=== PATIENT | female | born 1980 | race American Indian/Alaskan Native ===

== ENCOUNTER 2016-06-14 13:58 | Emergency (ER) | payer MEDICAID ==
[2016-06-14 14:37] VITALS: BP 146/85
--- NOTE | 2016-06-14 15:01 | EDM.PDOC ---
[id number] PAIN WHERE TOOTH WAS REMOVED Time Seen by Provider: 06/14/16 14:45 Source: Reports: Patient History Limitations: Reports: No limitations - History of Present Illness INITIAL COMMENTS - FREE TEXT/NARRATIVE: 35-year-old female with a dental extraction 3 days ago is having increased pain today. She is worried about dry socket or infection. Quality: Reports: Ache, Stabbing Associated symptoms: Reports: denies other symptoms - Related Data Allergies/ADRs: Allergies Allergy/AdvReac Type Severity Reaction Status Date / Time amoxicillin Allergy Rash Verified 06/14/16 14:40 erythromycin base Allergy Rash Verified 06/14/16 14:40 Penicillins Allergy Rash Verified 06/14/16 14:40 Sulfa (Sulfonamide Allergy Rash Verified 06/14/16 14:40 Antibiotics) Home Meds: Home Meds Gabapentin [Neurontin] 800 mg PO QID 02/28/15 [History] Ibuprofen [Motrin] 800 mg PO TID 02/28/15 [History] Cyclobenzaprine HCl [Cyclobenzaprine HCl] 10 mg PO BEDTIME 01/12/16 [History] Past Medical History HEENT History: Reports: Allergic rhinitis, Other (see below) Other HEENT History: cracked ear drum Genitourinary History: Reports: Pyelonephritis 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 - Past Surgical History Musculoskeletal Surgical History: Reports: Other (see below) Other Musculoskeletal Surgeries/Procedures:: left ankle surgery Social & Family History - Tobacco Use Smoking Status *Q: Current Every Day Smoker Years of Tobacco use: 15 Packs/Tins Daily: 0.5 Used Tobacco, but Quit: No Second Hand Smoke Exposure: No - Caffeine Use Caffeine Use: Reports: Soda - Recreational Drug Use Recreational Drug Use: No Drug Use in Last 12 Months: Yes Recreational Drug Type: Reports: Marijuana/Hashish Recreational Drug Use Frequency: Rarely Recreational Drug Last Use: 2 weeks ago ED ROS ENT - Review of Systems Review Of Systems: See Below Constitutional: Denies: fever, chills Respiratory: Denies: Shortness of Breath Cardiovascular: Denies: Chest pain GI/Abdominal: Denies: Abdominal pain Skin: Reports: no symptoms Neurological: Denies: Headache ED EXAM, ENT - Physical Exam Exam: See Below Exam Limited By: No limitations General Appearance: alert, no apparent distress Mouth/Throat: Other (Dental extraction site to the first molar on the right mandible looks clean, healing nicely with a small amount of swelling. No evidence of infection.) Course - Vital Signs Last Recorded V/S: Last Vital Signs Temp 99.1 F 06/14/16 14:35 Pulse 121 H 06/14/16 14:35 Resp 14 06/14/16 14:35 BP 146/85 H 06/14/16 14:35 Pulse Ox 99 06/14/16 14:35 - Re-Assessments/Exams Free Text/Narrative Re-Assessment/Exam: 06/14/16 15:00 Patient was given 10 hydrocodone for pain control to use sparingly over the next 2-3 days and to recheck with her dentist or primary care provider in the next one to 2 days. Return if worsening such as swelling or fever. Departure - Departure Time of Disposition: 15:18 Disposition: Home, Self-Care 01 Condition: good Clinical Impression: Pain, dental Instructions: Dental Extraction, Care After, [id number] Referrals: PCP,None [Primary Care Provider] - Forms: ED Department Discharge Care Plan Goals: Ibuprofen on a regular basis and add stronger pain medications if needed. Return if worsening such as fever or increased swelling, recheck in 2-3 days if not improving satisfactorily.
== END 2016-06-14 15:18 | disposition home or self-care (01) ==
LOC: JP.ED 13:58
DX: K08.89 Other specified disorders of teeth and supporting structures (principal); F41.9 Anxiety disorder, unspecified; F32.9 Major depressive disorder, single episode, unspecified; F17.210 Nicotine dependence, cigarettes, uncomplicated; Z88.0 Allergy status to penicillin; Z88.1 Allergy status to other antibiotic agents; Z88.2 Allergy status to sulfonamides; Z98.890 Other specified postprocedural states
CPT/HCPCS: 99283

== ENCOUNTER 2016-07-21 21:04 | Emergency (ER) | payer MEDICAID ==
[2016-07-21 21:30] VITALS: BP 147/94
[2016-07-21] MEDS ORDERED: Lidocaine 1% with EPINEPHrine 1:100,000 50 ML MDV INJECT STA (21:58)
--- NOTE | 2016-07-21 22:43 | EDM.PDOC ---
[id number] BOIL; SHARP PAIN RT SIDE Time Seen by Provider: 07/21/16 21:55 Source: Reports: Patient, RN notes reviewed History Limitations: Reports: No limitations - History of Present Illness INITIAL COMMENTS - FREE TEXT/NARRATIVE: Brought herself here Chief complaint boil in genital area HPI 35-year-old female who's had a history of MRSA, has developed boils previously, no history of diabetes. Current boil started yesterday, feels as if there is one larger one smaller boil in the pubic area. No fever or chills Some discomfort with urination. No other rashes or breakouts at this time - Related Data Allergies Allergy/AdvReac Type Severity Reaction Status Date / Time amoxicillin Allergy Rash Verified 07/21/16 21:38 erythromycin base Allergy Rash Verified 07/21/16 21:38 Penicillins Allergy Rash Verified 07/21/16 21:38 Sulfa (Sulfonamide Allergy Rash Verified 07/21/16 21:38 Antibiotics) Home Meds: Ambulatory Orders Medication Instructions Recorded Confirmed Gabapentin [Neurontin] 800 mg PO QID 02/28/15 07/21/16 Ibuprofen [Motrin] 800 mg PO TID 02/28/15 07/21/16 Cyclobenzaprine HCl 10 mg PO BEDTIME 01/12/16 07/21/16 [Cyclobenzaprine HCl] Doxycycline [Vibra-Tabs] 100 mg PO Q12HR #20 tab 07/21/16 Hydrocodone/Acetaminophen 1 - 2 each PO Q4H PRN #10 tablet 07/21/16 [Hydrocodon-Acetaminophen 5-325] Past Medical History HEENT History: Reports: Allergic rhinitis, Other (see below) Other HEENT History: cracked ear drum Genitourinary History: Reports: Pyelonephritis 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 - Past Surgical History Musculoskeletal Surgical History: Reports: Other (see below) Other Musculoskeletal Surgeries/Procedures:: left ankle surgery Social & Family History - Tobacco Use Smoking Status *Q: Current Every Day Smoker Years of Tobacco use: 22 Packs/Tins Daily: 0.2 Used Tobacco, but Quit: No Second Hand Smoke Exposure: No - Caffeine Use Caffeine Use: Reports: Soda - Recreational Drug Use Recreational Drug Use: No Drug Use in Last 12 Months: Yes Recreational Drug Type: Reports: Marijuana/Hashish Recreational Drug Use Frequency: Rarely Recreational Drug Last Use: 2 weeks ago ED ROS GENERAL - Review of Systems Review Of Systems: ROS reveals no pertinent complaints other than HPI. : Reports: other (One or 2 small boils in the perineal area, some discomfort with urination) ED EXAM, SKIN/RASH Exam: See Below Exam Limited By: No limitations General Appearance: alert, mild distress, other (Mild tachycardia and elevation of blood pressure, Appears well, no difficulty speaking or breathing) Respiratory/Chest: no respiratory distress, no accessory muscle use Cardiovascular: normal peripheral pulses, regular rate, rhythm Neurological: alert, oriented, normal cognition Skin: Other (At least one small boil in the anterior pubic area, mild erythema and significant tenderness is present) Location, Skin: genital ED SKIN PROCEDURES - I&D Skin prep: isopropyl alcohol (alcohol) Local anesthesia: Lidocaine: 1% with epi Local anesthetic volume: 2cc Area incised with: 11 blade Drainage: bloody, small amount Probed to break up loculations: No Packed with: none Sterile dressinx4(s) Complications: No Course - Vital Signs Last Recorded V/S: Last Vital Signs Temp 37.0 C 07/21/16 21:36 Pulse 118 H 07/21/16 21:36 Resp 16 07/21/16 21:36 BP 147/94 H 07/21/16 21:36 Pulse Ox 98 07/21/16 21:36 - Orders/Labs/Meds Meds: Medications Discontinued Medications Generic Name Dose Route Start Last Admin Trade Name Tuq PRN Reason Stop Dose Admin Lidocaine/Epinephrine 10 ml 07/21/16 21:58 Xylocaine 1% With Epinephrine 1:100,000 INJECT 07/21/16 21:59 ONETIME STA - Re-Assessments/Exams Free Text/Narrative Re-Assessment/Exam: 07/21/16 23:43 35-year-old female with perineal boil Incision and drainage Prescriptions as below Departure - Departure Time of Disposition: 22:39 Disposition: Home, Self-Care 01 Condition: good Clinical Impression: Boil of trunk Prescriptions: Doxycycline [Vibra-Tabs] 100 mg PO Q12HR #20 tab Hydrocodone/Acetaminophen [Hydrocodon-Acetaminophen 5-325] 1 - 2 each PO Q4H PRN #10 tablet PRN Reason: Moderate to severe pain Instructions: Incision and Drainage, Care After Referrals: PCP,None [Primary Care Provider] - Forms: ED Department Discharge
== END 2016-07-21 22:50 | disposition home or self-care (01) ==
LOC: JP.ED 21:04
DX: L02.229 Furuncle of trunk, unspecified (principal); F41.0 Panic disorder [episodic paroxysmal anxiety]; F32.9 Major depressive disorder, single episode, unspecified; F17.210 Nicotine dependence, cigarettes, uncomplicated; Z88.0 Allergy status to penicillin; Z88.1 Allergy status to other antibiotic agents; Z88.2 Allergy status to sulfonamides; Z79.899 Other long term (current) drug therapy; Z98.890 Other specified postprocedural states
CPT/HCPCS: 10060; 99283-25

== ENCOUNTER 2016-09-12 21:07 | Emergency (ER) | payer MEDICAID ==
[2016-09-12 21:40] VITALS: BP 128/77
[2016-09-12] MEDS ORDERED: oxyCODONE 5 MG Tab PO ONE (21:52)
--- NOTE | 2016-09-12 21:56 | EDM.PDOC ---
ED HPI GENERAL MEDICAL PROBLEM - General Chief Complaint: Gastrointestinal Problem Stated Complaint: POSSIBLE KIDNEY STONES Time Seen by Provider: 09/12/16 21:45 Source of Information: Reports: Patient History Limitations: Reports: No Limitations - History of Present Illness INITIAL COMMENTS - FREE TEXT/NARRATIVE: Jerrod is a 36 year old female who presents to the ED today with c/o LUQ pain that wraps into her back since this morning. Patient denies any other associative symptoms. Patient was just seen in [place] ED on 09/09 where she was worked up for visual issues and RUQ pain, she was found to have a right intra-renal stone at that time. Patient denies any fever/chills/nausea/vomiting /diarrhea. - Related Data Allergies Allergy/AdvReac Type Severity Reaction Status Date / Time amoxicillin Allergy Rash Verified 07/21/16 21:38 erythromycin base Allergy Rash Verified 07/21/16 21:38 Penicillins Allergy Rash Verified 07/21/16 21:38 Sulfa (Sulfonamide Allergy Rash Verified 07/21/16 21:38 Antibiotics) Home Meds: Home Meds Gabapentin [Neurontin] 800 mg PO QID 02/28/15 [History] Ibuprofen [Motrin] 800 mg PO TID 02/28/15 [History] Cyclobenzaprine HCl [Cyclobenzaprine HCl] 10 mg PO BEDTIME 01/12/16 [History] Insulin Aspart [NovoLOG] 09/12/16 [History] Insulin Detemir [Levemir Flextouch] 09/12/16 [History] Past Medical History HEENT History: Reports: Allergic Rhinitis, Other (See Below) Other HEENT History: cracked ear drum Genitourinary History: Reports: Pyelonephritis Other Genitourinary History: recent renal calculus dx 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 - Past Surgical History Musculoskeletal Surgical History: Reports: Other (See Below) Social & Family History - Tobacco Use Smoking Status *Q: Current Every Day Smoker Years of Tobacco use: 20 Packs/Tins Daily: 0.2 Used Tobacco, but Quit: No Second Hand Smoke Exposure: No - Caffeine Use Caffeine Use: Reports: Soda - Recreational Drug Use Recreational Drug Use: No Drug Use in Last 12 Months: Yes Recreational Drug Type: Reports: Marijuana/Hashish Recreational Drug Use Frequency: Rarely Recreational Drug Last Use: 2 weeks ago ED ROS GENERAL - Review of Systems Review Of Systems: ROS reveals no pertinent complaints other than HPI. ED EXAM, GI/ABD - Physical Exam Exam: See Below Exam Limited By: No Limitations General Appearance: Alert, WD/WN, No Apparent Distress Ears: Normal External Exam Throat/Mouth: Normal Inspection, Normal Oropharynx Head: Atraumatic Respiratory/Chest: No Respiratory Distress, Lungs Clear, Normal Breath Sounds Cardiovascular: Normal Peripheral Pulses, Regular Rate, Rhythm, No Murmur GI/Abdominal: Normal Bowel Sounds, Soft, Other (Mild tenderness to LUQ and Left CVA. No masses, no organomegaly) Rectal (Female) Exam: Deferred Back Exam: Normal Inspection Extremities: Normal Inspection, Normal Range of Motion Neurological: Oriented, CN II-XII Intact Psychiatric: Normal Affect, Normal Mood Skin Exam: Warm, Dry, Intact Course - Vital Signs Text/Narrative:: Jerrod is a 36 year old female with multiple medical problems including fatty liver, right sided renal stones, fibromyalgia, cholelithiasis, chronic pain syndrome and obesity who presents to the ED today with c/o LUQ pain since this morning. She reports she is concerned she is passing a kidney stone as she was told she had them at her last ED visit (09/09 in [place]). However, these were in patient's right kidney. Patient on exam is well hydrated , she is non-toxic appearing. She has mild LUQ and left sided CVA tenderness on exam, remaining exam is unremarkable. CBC obtained tonight and returns with a normal white count. CMP returns with anion gap of 18.5 which is unchanged since 09/09. Mildly elevated AST of 96 and ALT of 118. Potassium is mildly low at 3.2, patient given 40 meq replacement here. UA is positive for infection, negative for blood. UC pending. Patient reports she was diagnosed with UTI 3 days ago and put on 2 days of Clindamycin. Patient is not on any antibiotics currently. I am going to start her on Cipro for 5 days. I do not feel based on exam and reassuring blood work that imaging tonight is warranted especially given patient complete abdominal US that was done on the . Patient is stable to be discharged home. She has Tylenol with codeine at home she can take as prescribed. Follow up with PCP this next week. Reasons to return to the ED discussed. Patient is agreeable to plan of care and questions were answered prior to discharge. Patient discharged from the ED in stable condition with her friend driving. Last Recorded V/S: Last Vital Signs Temp 37.5 C 09/12/16 21:38 Pulse 89 09/12/16 21:38 Resp 14 09/12/16 21:38 BP 128/77 09/12/16 21:38 Pulse Ox 98 09/12/16 21:38 - Orders/Labs/Meds Labs: Laboratory Tests 09/12/16 09/12/16 09/12/16 Range/Units 22:02 22:02 22:32 WBC 7.4 (4.5-11.0) K/uL RBC 5.15 (3.30-5.50) M/uL Hgb 14.6 (12.0-15.0) g/dL Hct 43.0 (36.0-48.0) % MCV 84 (80-98) fL MCH 28 (27-31) pg MCHC 34 (32-36) % Plt Count 303 (150-400) K/uL Neut % (Auto) 50 (36-66) % Lymph % (Auto) 34 (24-44) % [place] % (Auto) 12 H (2-6) % Eos % (Auto) 4 (2-4) % Baso % (Auto) 1 (0-1) % Sodium 141 (140-148) mmol/L Potassium 3.2 L (3.6-5.2) mmol/L Chloride 105 (100-108) mmol/L Carbon Dioxide 21 (21-32) mmol/L Anion Gap 18.2 H (5.0-14.0) mmol/L BUN 13 (7-18) mg/dL Creatinine 0.8 (0.6-1.0) mg/dL Est Cr Clr Drug Dosing 95.45 mL/min Estimated GFR (MDRD) > 60 (>60) Glucose 95 (74-106) mg/dL Calcium 9.0 (8.5-10.1) mg/dL Total Bilirubin 0.6 D (0.2-1.0) mg/dL AST 96 H D (15-37) U/L ALT 118 H (12-78) U/L Alkaline Phosphatase 99 (46-116) U/L Total Protein 7.7 (6.4-8.2) g/dL Albumin 3.7 (3.4-5.0) g/dL Globulin 4.0 H (2.3-3.5) g/dL Albumin/Globulin Ratio 0.9 L (1.2-2.2) Urine Color Yellow Urine Appearance Clear Urine pH 5.0 (4.5-8.0) Ur Specific [place] 1.020 (1.008-1.030) Urine Protein Trace (NEGATIVE) mg/dL Urine Glucose (UA) Normal (NEGATIVE) mg/dL Urine Ketones 15 H (NEGATIVE) mg/dL Urine Occult Blood Negative (NEGATIVE) Urine Nitrite Positive H (NEGATIVE) Urine Bilirubin Small (NEGATIVE) Urine Urobilinogen Normal (NORMAL) mg/dL Ur Leukocyte Esterase Large (NEGATIVE) Urine RBC 0-5 (0-5) Urine WBC 20-30 H (0-5) Ur Epithelial Cells Moderate Amorphous Sediment Not seen Urine Bacteria Moderate Urine Mucus Moderate Meds: Medications Discontinued Medications Generic Name Dose Route Start Last Admin Trade Name Bailey PRN Reason Stop Dose Admin Oxycodone HCl 10 mg 09/12/16 21:52 09/12/16 22:12 Oxycodone PO 09/12/16 21:53 10 mg ONETIME ONE Administration Potassium Chloride 40 meq 09/12/16 22:39 09/12/16 22:43 Klor-Con M20 PO 09/12/16 22:40 40 meq ONETIME ONE Administration Departure - Departure Time of Disposition: 23:00 Disposition: Home, Self-Care 01 Condition: Good Clinical Impression: LUQ abdominal pain - Discharge Information Instructions: Abdominal Pain, Adult, [id number] Referrals: Trell Buitrago MD [Primary Care Provider] - Forms: ED Department Discharge Additional Instructions: Jerrod, Please make sure to stay well hydrated, take your Tylenol #3 as prescribed if needed. Please follow up with your primary care provider next week.
[2016-09-12] MEDS ORDERED: Potassium Chloride 20 MEQ Tab.ER PO ONE (22:39)
== END 2016-09-12 23:11 | disposition home or self-care (01) ==
LOC: JP.ED 21:07
DX: R10.12 Left upper quadrant pain (principal); M19.90 Unspecified osteoarthritis, unspecified site; F17.210 Nicotine dependence, cigarettes, uncomplicated; Z88.1 Allergy status to other antibiotic agents; Z88.0 Allergy status to penicillin; Z88.2 Allergy status to sulfonamides; Z79.4 Long term (current) use of insulin
CPT/HCPCS: 36415; 80053; 81001; 85025; 87086; 99284; A9270; 99283

== ENCOUNTER 2016-11-05 22:06 | Emergency (ER) | payer MEDICAID ==
[2016-11-05 22:57] VITALS: BP 140/86
[2016-11-06] MEDS ORDERED: Ciprofloxacin 500 MG Tab PO ONE (00:03)
--- NOTE | 2016-11-06 00:09 | EDM.PDOC ---
[id number]: ABD PAIN Time Seen by Provider: 11/05/16 23:40 Source of Information: Reports: Patient History Limitations: Reports: No Limitations - History of Present Illness INITIAL COMMENTS - FREE TEXT/NARRATIVE: 36-year-old female who apparently is scheduled to get a cholecystectomy in the near future arrives with generalized abdominal discomfort. When I went in to examine her and visit with her she was resting comfortably and appeared to be sleeping. Her pain is very nonspecific, diffuse but without nausea or vomiting. She looked comfortable. She was afebrile. She apparently has a urinary tract infection that she said was started on Macrobid, and was changed to a " different antibiotic" today because it wasn't covering the infection but she has not started that yet. Onset: Unknown/Unsure Location: Reports: Abdomen Severity: Mild Associated Symptoms: Denies: Chest Pain, Cough, Fever/Chills, Nausea/Vomiting, Shortness of Breath, Weakness Abdominal Pain Score (Numeric/FACES): 7 - Related Data Allergies Allergy/AdvReac Type Severity Reaction Status Date / Time amoxicillin Allergy Rash Verified 11/05/16 23:23 erythromycin base Allergy Rash Verified 11/05/16 23:23 Penicillins Allergy Rash Verified 11/05/16 23:23 Sulfa (Sulfonamide Allergy Rash Verified 11/05/16 23:23 Antibiotics) Home Meds: Home Meds Gabapentin [Neurontin] 800 mg PO QID 02/28/15 [History] Cyclobenzaprine HCl [Cyclobenzaprine HCl] 10 mg PO BEDTIME 01/12/16 [History] Insulin Aspart [NovoLOG] 09/12/16 [History] Insulin Detemir [Levemir Flextouch] 20 unit SQ BEDTIME 09/12/16 [History] Past Medical History HEENT History: Reports: Allergic Rhinitis, Other (See Below) Other HEENT History: cracked ear drum Gastrointestinal History: Reports: Cholelithiasis Genitourinary History: Reports: Pyelonephritis, Renal Calculus, UTI, Recurrent Other Genitourinary History: recent renal calculus dx 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 - Past Surgical History Musculoskeletal Surgical History: Reports: Other (See Below) Social & Family History - Tobacco Use Smoking Status *Q: Current Every Day Smoker Years of Tobacco use: 20 Packs/Tins Daily: 0.2 Used Tobacco, but Quit: No Second Hand Smoke Exposure: No - Caffeine Use Caffeine Use: Reports: Soda - Recreational Drug Use Recreational Drug Use: No Drug Use in Last 12 Months: Yes Recreational Drug Type: Reports: Marijuana/Hashish Recreational Drug Use Frequency: Rarely Recreational Drug Last Use: 2 weeks ago ED ROS GENERAL - Review of Systems Review Of Systems: See Below Constitutional: Denies: Fever, Chills HEENT: Reports: No Symptoms Respiratory: Denies: Shortness of Breath Cardiovascular: Denies: Chest Pain GI/Abdominal: Reports: Abdominal Pain. Denies: Nausea : Reports: Frequency (At times) Musculoskeletal: Reports: Back Pain Skin: Reports: No Symptoms ED EXAM, GI/ABD - Physical Exam Exam: See Below Exam Limited By: No Limitations General Appearance: Alert, No Apparent Distress Eyes: Bilateral: Normal Appearance (No jaundice) Respiratory/Chest: No Respiratory Distress, Lungs Clear Cardiovascular: Regular Rate, Rhythm GI/Abdominal Exam: Normal Bowel Sounds, Soft, Tender (Did reacts with some tenderness diffusely but no focal tenderness) Neurological: Alert, Oriented Psychiatric: Normal Affect, Normal Mood Skin Exam: Warm, Dry Course - Vital Signs Last Recorded V/S: Last Vital Signs Temp 99.1 F 11/05/16 23:17 Pulse 118 H 11/05/16 23:17 Resp 16 11/05/16 23:17 BP 140/86 11/05/16 23:17 Pulse Ox 98 11/05/16 23:17 - Orders/Labs/Meds Meds: Medications Discontinued Medications Generic Name Dose Route Start Last Admin Trade Name Bailey PRN Reason Stop Dose Admin Ciprofloxacin 500 mg 11/06/16 00:03 11/06/16 00:08 Ciprofloxacin Hcl PO 11/06/16 00:04 500 mg ONETIME ONE Administration - Re-Assessments/Exams Free Text/Narrative Re-Assessment/Exam: 11/06/16 00:07 Reviewed her records and she was supposed to start Cipro today which she has not. We gave her her first oral dose tonight. She's also on a pain contract and received 20 day supply of hydrocodone 18 days ago, and has been calling the clinic looking for a refill. She did not mention that medication to us as a regular medicine. She does not look ill, does not look to be uncomfortable and no further workup or treatment is necessary tonight. Departure - Departure Time of Disposition: 00:15 Disposition: Home, Self-Care 01 Condition: Good Clinical Impression: Abdominal pain Qualifiers: Abdominal location: generalized Qualified Code(s): R10.84 - Generalized abdominal pain UTI (urinary tract infection) Qualifiers: Urinary tract infection type: acute cystitis Hematuria presence: without hematuria Qualified Code(s): N30.00 - Acute cystitis without hematuria - Discharge Information Instructions: Abdominal Pain, Adult, [id number] Referrals: Trell Buitrago MD [Primary Care Provider] - Forms: ED Department Discharge Care Plan Goals: Take your antibiotic as prescribed. Return if worsening such as fever or increased pain. Increase diet as tolerated.
== END 2016-11-06 00:15 | disposition home or self-care (01) ==
LOC: JP.ED 22:06
DX: N30.00 Acute cystitis without hematuria (principal); M19.90 Unspecified osteoarthritis, unspecified site; G43.909 Migraine, unspecified, not intractable, without status migrainosus; F17.210 Nicotine dependence, cigarettes, uncomplicated; Z90.49 Acquired absence of other specified parts of digestive tract; Z79.4 Long term (current) use of insulin; Z88.1 Allergy status to other antibiotic agents; Z88.0 Allergy status to penicillin; Z88.2 Allergy status to sulfonamides
CPT/HCPCS: 99283; A9270

== ENCOUNTER 2017-01-18 22:32 | Emergency (ER) | payer MEDICAID ==
[2017-01-18] MEDS ORDERED: Sodium Chloride 0.9% 1,000 ML IV SCH (23:45)
--- NOTE | 2017-01-19 00:01 | EDM.PDOC ---
ED HPI GENERAL MEDICAL PROBLEM - General Chief Complaint: Gastrointestinal Problem Stated Complaint: RECTAL BLEEDING/ABD BLOATING Time Seen by Provider: 01/18/17 23:55 Source of Information: Reports: Patient History Limitations: Reports: No Limitations - History of Present Illness INITIAL COMMENTS - FREE TEXT/NARRATIVE: pt arrived after 3 days of diarrhea and today when she wiped she had bright red blood on the tolet paper. Onset: Gradual, Other ( last 3 days. ) Duration: Day(s):, Other (pt had bright red blood tonight. ) Location: Reports: Abdomen, Other ( Pt has crampy pain she is rating at a 5. ) abdominal Pain Score (Numeric/FACES): 6 - Related Data Allergies Allergy/AdvReac Type Severity Reaction Status Date / Time amoxicillin Allergy Rash Verified 01/19/17 00:06 erythromycin base Allergy Rash Verified 01/19/17 00:06 Penicillins Allergy Rash Verified 01/19/17 00:06 Sulfa (Sulfonamide Allergy Rash Verified 01/19/17 00:06 Antibiotics) Home Meds: Home Meds Gabapentin [Neurontin] 800 mg PO QID 02/28/15 [History] Insulin Aspart [NovoLOG] 15 - 20 units SUBCUT TID 09/12/16 [History] Insulin Detemir [Levemir Flextouch] 20 unit SQ BEDTIME 09/12/16 [History] Past Medical History HEENT History: Reports: Allergic Rhinitis, Other (See Below) Other HEENT History: cracked ear drum Gastrointestinal History: Reports: Cholelithiasis Genitourinary History: Reports: Pyelonephritis, Renal Calculus, UTI, Recurrent Other Genitourinary History: recent renal calculus dx 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 - Past Surgical History GI Surgical History: Reports: Cholecystectomy Musculoskeletal Surgical History: Reports: Other (See Below) Other Musculoskeletal Surgeries/Procedures:: right ankle surgery Dermatological Surgical History: Reports: Other (See Below) Social & Family History - Tobacco Use Smoking Status *Q: Current Every Day Smoker Years of Tobacco use: 16 Packs/Tins Daily: 0.2 Used Tobacco, but Quit: No Second Hand Smoke Exposure: No - Caffeine Use Caffeine Use: Reports: Coffee, Soda - Recreational Drug Use Recreational Drug Use: No Drug Use in Last 12 Months: Yes Recreational Drug Type: Reports: Marijuana/Hashish Recreational Drug Use Frequency: Rarely Recreational Drug Last Use: 2 weeks ago ED ROS GENERAL - Review of Systems Review Of Systems: See Below Constitutional: Reports: No Symptoms HEENT: Reports: No Symptoms Respiratory: Reports: No Symptoms Cardiovascular: Reports: No Symptoms Endocrine: Reports: High Glucose, Other (pt is a new diabetic. ) GI/Abdominal: Reports: Abdominal Pain, Diarrhea, Other ( Pt has had loose stools for the past 3 days. ) : Reports: Other ( High urine glucose. ) Musculoskeletal: Reports: No Symptoms Skin: Reports: No Symptoms Neurological: Reports: No Symptoms Psychiatric: Reports: No Symptoms Hematologic/Lymphatic: Reports: No Symptoms ED EXAM, GI/ABD - Physical Exam Exam: See Below Text/Narrative:: pt arrived with pain in the lower abdoman. She is hving loose stools after eating or drinking. She is not vomiting. She did have some bright red blood on the tolet paper when she wiped. This was not mixed with the stool. Exam Limited By: No Limitations General Appearance: Alert, Anxious, Mild Distress Ears: Normal TMs Nose: Normal Inspection Throat/Mouth: Normal Inspection Head: Atraumatic Neck: Normal Inspection Respiratory/Chest: No Respiratory Distress Cardiovascular: Regular Rate, Rhythm, Tachycardia GI/Abdominal Exam: Soft, Non-Tender, Distended, Tender, Other (pt appears to have difuse tenderness. ) (Female) Exam: Deferred Rectal (Female) Exam: Other ( There is no blood present at this time. Stool is chou in color) Back Exam: Normal Inspection Extremities: Normal Inspection Neurological: Alert, Oriented, Normal Cognition Psychiatric: Normal Affect Course - Vital Signs Last Recorded V/S: Last Vital Signs Temp 36.3 C 01/19/17 01:45 Pulse 83 01/19/17 01:45 Resp 18 01/19/17 01:45 BP 120/73 01/19/17 01:45 Pulse Ox 99 01/19/17 01:45 - Orders/Labs/Meds Orders: Active Orders 24 hr Category Date Time Status Abdomen Pelvis w Cont [CT] Stat Exams 01/19/17 01:27 Taken Abdomen Series w Chest 1V [CR] Stat Exams 01/19/17 00:01 Taken CLOSTRIDIUM DIFFICILE BY PCR [] Stat Lab 01/18/17 23:57 Uncollected CULTURE URINE [] Stat Lab 01/19/17 00:05 Received Sodium Chloride 0.9% [Normal Saline] 1,000 ml Med 01/18/17 23:45 Active IV ASDIRECTED Sodium Chloride 0.9% [Normal Saline] 1,000 ml Med 01/19/17 01:45 Active IV ASDIRECTED Medication Orders Sodium Chloride (Normal Saline) 1,000 mls @ 999 mls/hr IV ASDIRECTED SHAHBAZ Last Admin: 01/19/17 00:35 Dose: 999 mls/hr Sodium Chloride (Normal Saline) 1,000 mls @ 999 mls/hr IV ASDIRECTED SHAHBAZ Last Admin: 01/19/17 01:44 Dose: 999 mls/hr Labs: Laboratory Tests 01/18/17 01/18/17 01/18/17 Range/Units 23:37 23:37 23:54 WBC 8.8 (4.5-11.0) K/uL RBC 5.24 (3.30-5.50) M/uL Hgb 14.5 (12.0-15.0) g/dL Hct 44.0 (36.0-48.0) % MCV 84 (80-98) fL MCH 28 (27-31) pg MCHC 33 (32-36) % Plt Count 326 (150-400) K/uL Neut % (Auto) 53 (36-66) % Lymph % (Auto) 34 (24-44) % [place] % (Auto) 9 H (2-6) % Eos % (Auto) 4 (2-4) % Baso % (Auto) 1 (0-1) % Sodium 133 L (140-148) mmol/L Potassium 4.1 (3.6-5.2) mmol/L Chloride 96 L (100-108) mmol/L Carbon Dioxide 26 (21-32) mmol/L Anion Gap 15.1 H (5.0-14.0) mmol/L BUN 11 (7-18) mg/dL Creatinine 0.8 (0.6-1.0) mg/dL Est Cr Clr Drug Dosing 95.45 mL/min Estimated GFR (MDRD) > 60 (>60) Glucose 464 H* (74-106) mg/dL Calcium 9.4 (8.5-10.1) mg/dL Total Bilirubin 0.3 (0.2-1.0) mg/dL AST 50 H (15-37) U/L ALT 81 H (12-78) U/L Alkaline Phosphatase 131 H (46-116) U/L C-Reactive Protein 0.74 H (0.0-0.3) mg/dL Total Protein 7.7 (6.4-8.2) g/dL Albumin 3.4 (3.4-5.0) g/dL Globulin 4.3 H (2.3-3.5) g/dL Albumin/Globulin Ratio 0.8 L (1.2-2.2) Lipase (73-393) U/L Urine Color Urine Appearance Urine pH (4.5-8.0) Ur Specific [place] (1.008-1.030) Urine Protein (NEGATIVE) mg/dL Urine Glucose (UA) (NEGATIVE) mg/dL Urine Ketones (NEGATIVE) mg/dL Urine Occult Blood (NEGATIVE) Urine Nitrite (NEGATIVE) Urine Bilirubin (NEGATIVE) Urine Urobilinogen (NORMAL) mg/dL Ur Leukocyte Esterase (NEGATIVE) Urine RBC (0-5) Urine WBC (0-5) Ur Epithelial Cells Amorphous Sediment Urine Bacteria Urine Mucus Urine HCG, Qual 01/18/17 01/18/17 01/19/17 Range/Units 23:56 23:58 00:00 WBC (4.5-11.0) K/uL RBC (3.30-5.50) M/uL Hgb (12.0-15.0) g/dL Hct (36.0-48.0) % MCV (80-98) fL MCH (27-31) pg MCHC (32-36) % Plt Count (150-400) K/uL Neut % (Auto) (36-66) % Lymph % (Auto) (24-44) % [place] % (Auto) (2-6) % Eos % (Auto) (2-4) % Baso % (Auto) (0-1) % Sodium (140-148) mmol/L Potassium (3.6-5.2) mmol/L Chloride (100-108) mmol/L Carbon Dioxide (21-32) mmol/L Anion Gap (5.0-14.0) mmol/L BUN (7-18) mg/dL Creatinine (0.6-1.0) mg/dL Est Cr Clr Drug Dosing mL/min Estimated GFR (MDRD) (>60) Glucose (74-106) mg/dL Calcium (8.5-10.1) mg/dL Total Bilirubin (0.2-1.0) mg/dL AST (15-37) U/L ALT (12-78) U/L Alkaline Phosphatase (46-116) U/L C-Reactive Protein (0.0-0.3) mg/dL Total Protein (6.4-8.2) g/dL Albumin (3.4-5.0) g/dL Globulin (2.3-3.5) g/dL Albumin/Globulin Ratio (1.2-2.2) Lipase 284 (73-393) U/L Urine Color Yellow Urine Appearance Slightly cloudy Urine pH 6.5 (4.5-8.0) Ur Specific [place] 1.015 (1.008-1.030) Urine Protein Negative (NEGATIVE) mg/dL Urine Glucose (UA) >1000 H (NEGATIVE) mg/dL Urine Ketones Negative (NEGATIVE) mg/dL Urine Occult Blood Negative (NEGATIVE) Urine Nitrite Negative (NEGATIVE) Urine Bilirubin Negative (NEGATIVE) Urine Urobilinogen Normal (NORMAL) mg/dL Ur Leukocyte Esterase Small (NEGATIVE) Urine RBC 0-5 (0-5) Urine WBC 5-10 H (0-5) Ur Epithelial Cells Few Amorphous Sediment Not seen Urine Bacteria Few Urine Mucus Not seen Urine HCG, Qual Negative Meds: Medications Generic Name Dose Route Start Last Admin Trade Name Freq PRN Reason Stop Dose Admin Sodium Chloride 1,000 mls @ 999 mls/hr 01/18/17 23:45 01/19/17 00:35 Normal Saline IV 999 mls/hr ASDIRECTED SHAHBAZ Administration Sodium Chloride 1,000 mls @ 999 mls/hr 01/19/17 01:45 01/19/17 01:44 Normal Saline IV 999 mls/hr ASDIRECTED SHAHBAZ Administration Discontinued Medications Generic Name Dose Route Start Last Admin Trade Name Freq PRN Reason Stop Dose Admin Hydromorphone HCl 0.5 mg 01/19/17 01:32 01/19/17 01:38 Dilaudid IVPUSH 01/19/17 01:33 0.5 mg ONETIME ONE Administration Sodium Chloride 85 mls @ 4 mls/sec 01/19/17 01:54 01/19/17 02:02 Normal Saline IV 01/19/17 01:55 4 mls/sec ASDIRECTED STA Administration Insulin Detemir 20 unit 01/19/17 00:11 01/19/17 01:02 Levemir SUBCUT 01/19/17 00:12 Not Given ONETIME ONE Insulin Detemir Confirm 01/19/17 00:52 01/19/17 00:59 Levemir Administered 01/19/17 00:53 20 units Dose Administration 300 unit .ROUTE .STK-MED ONE Insulin Human Regular 5 unit 01/19/17 00:22 01/19/17 00:40 Novolin R SUBCUT 01/19/17 00:23 5 units ONETIME ONE Administration Protocol Insulin Human Regular 4 unit 01/19/17 01:48 01/19/17 02:37 Novolin R SUBCUT 01/19/17 01:49 4 units ONETIME ONE Administration Protocol Iopamidol 150 ml 01/19/17 01:54 01/19/17 02:02 Isovue-300 (61%) IV 01/19/17 01:55 150 ml . DIRECTED STA Administration - Radiology Interpretation Free Text/Narrative:: pt does not have a distended bowel on flat and upright. Her lab work shows a normal cbc.Her liver enzymes are mildly elevated. Her bs is 464. She was given 5 units of regular insulin nd her levimir at 20 units. She had urine with a few wbcs and bateria. - Re-Assessments/Exams Free Text/Narrative Re-Assessment/Exam: 01/19/17 02:48 pt is not following her diabetes with checking bs. She has only taken one dose of insulin today. Her bs is 464. She has not had any stools while she is here. Her flat and upright of the abdoman does not show a distended bowel. Her cat scan of the abdoman was neg for acute findings. She was given 2 liters of fluid and insulin levimir and regular insulin. 01/19/17 03:05 The bright red bleeding was most lilely irritation. Departure - Departure Time of Disposition: 03:06 Disposition: Home, Self-Care 01 Condition: Fair Clinical Impression: Hyperglycemia, Dehydration, Post-cholecystectomy syndrome - Discharge Information Referrals: Trell Buitrago MD [Primary Care Provider] - Forms: ED Department Discharge Care Plan Goals: eat regularly and start checking bs closely. immodium 2 tabs after each loose stool. Use the insulin as directed. bring back a stool for clostrium diff-- send home a sterile cup. follow up with surgeon who did the surgery. - My Orders Last 24 Hours: My Active Orders 01/18/17 23:45 Sodium Chloride 0.9% [Normal Saline] 1,000 ml IV ASDIRECTED 01/18/17 23:57 CLOSTRIDIUM DIFFICILE BY PCR [RM] Stat 01/19/17 00:01 Abdomen Series w Chest 1V [CR] Stat 01/19/17 00:05 CULTURE URINE [RM] Stat 01/19/17 01:27 Abdomen Pelvis w Cont [CT] Stat 01/19/17 01:45 Sodium Chloride 0.9% [Normal Saline] 1,000 ml IV ASDIRECTED - Assessment/Plan Last 24 Hours: My Active Orders 01/18/17 23:45 Sodium Chloride 0.9% [Normal Saline] 1,000 ml IV ASDIRECTED 01/18/17 23:57 CLOSTRIDIUM DIFFICILE BY PCR [RM] Stat 01/19/17 00:01 Abdomen Series w Chest 1V [CR] Stat 01/19/17 00:05 CULTURE URINE [RM] Stat 01/19/17 01:27 Abdomen Pelvis w Cont [CT] Stat 01/19/17 01:45 Sodium Chloride 0.9% [Normal Saline] 1,000 ml IV ASDIRECTED
[2017-01-19] MEDS ORDERED: Insulin Regular, Human 100 Units/ML 10 ML Vial SUBCUT ONE ×2 (00:22→01:48)
[2017-01-19] MEDS ORDERED: Insulin Detemir 100 Units/ML 3 ML Pen ONE (00:52)
[2017-01-19] MEDS ORDERED: HYDROmorphone 0.5 MG/0.5 ML Syringe IVPUSH ONE (01:32)
[2017-01-19] MEDS ORDERED: Sodium Chloride 0.9% 1,000 ML IV SCH (01:45)
[2017-01-19 01:47] VITALS: BP 120/73
[2017-01-19] MEDS ORDERED: Iopamidol 612 MG/ML 150 ML Bottle IV STA (01:54)
--- NOTE | 2017-01-19 08:23 | CR ---
Abdomen Series w Chest 1V HISTORY: pain in lower abdomen. FINDINGS: Lungs appear clear and normally aerated. Cardiomediastinal silhouette is within normal limits. No vas cular redistribution or pleural fluid can be seen. Bowel gas pattern is nonspecific. No obstruction or free air is identified. Surgical clips are noted right upper quadrant consistent with prior cholecystectomy. No soft tissue mass or organomegaly is se en. Tiny calculi overlying the lower pole right kidney. Bony structures are unremarkable other than s light S-shaped scoliosis of the thoracic and lumbar spine. The upper curve is convex to the right. IMPRESSION: Status post cholecystectomy. Several tiny calculi overlying the lower pole right kidney. Mild scolios is. Otherwise nonspecific abdomen. No acute chest abnormality is identified.
== END 2017-01-19 03:28 | disposition home or self-care (01) ==
LOC: JP.ED 22:32
DX: K91.5 Postcholecystectomy syndrome (principal); E86.0 Dehydration; E11.65 Type 2 diabetes mellitus with hyperglycemia; F17.210 Nicotine dependence, cigarettes, uncomplicated; Z90.49 Acquired absence of other specified parts of digestive tract; Z79.4 Long term (current) use of insulin; Z88.1 Allergy status to other antibiotic agents; Z88.0 Allergy status to penicillin; Z88.2 Allergy status to sulfonamides
CPT/HCPCS: 36415; 74022; 74177; 80053; 81001; 81025; 82962; 83690; 85025; 86140; 87086; 87088; 87186; 96361; 96374; 99284; A9270; J1170; J7030; J7040; 99283

== ENCOUNTER 2017-02-10 22:20 | Emergency (ER) | payer MEDICAID ==
[2017-02-10 22:29] VITALS: BP 138/99
[2017-02-10] MEDS ORDERED: Lidocaine 1% with EPINEPHrine 1:100,000 50 ML MDV SUBCUT STA (22:54)
[2017-02-10] MEDS ORDERED: Bacitracin Oint 1 GM U/D Packet TOP ONE (23:06)
[2017-02-10] MEDS ORDERED: Bacitracin Oint 1 GM U/D Packet ONE (23:07)
--- NOTE | 2017-02-10 23:07 | EDM.PDOC ---
ED HPI GENERAL MEDICAL PROBLEM - General Chief Complaint: General Stated Complaint: BOIL R BREAST Time Seen by Provider: 02/10/17 22:45 Source of Information: Reports: Patient, Old Records History Limitations: Reports: No Limitations - History of Present Illness INITIAL COMMENTS - FREE TEXT/NARRATIVE: 36 yo NA female presents with a lump for a couple days on her R breast that is getting bigger. Has a pHx of recurrent MRSA infections. Has not been to her primary care provider yet for this. Came to town to shop at [employer] and so stopped in tonight to have this looked at. Onset: Gradual Onset Date: 02/08/17 Duration: Day(s): Location: Reports: Chest (R breast) Quality: Reports: Dull Severity: Mild Improves with: Reports: None Worsens with: Reports: Other (? 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: Other (see below) (none) right breast Pain Score (Numeric/FACES): 6 - Related Data Allergies Allergy/AdvReac Type Severity Reaction Status Date / Time amoxicillin Allergy Rash Verified 02/10/17 22:43 erythromycin base Allergy Rash Verified 02/10/17 22:43 Penicillins Allergy Rash Verified 02/10/17 22:43 Sulfa (Sulfonamide Allergy Rash Verified 02/10/17 22:43 Antibiotics) Home Meds: Home Meds Gabapentin [Neurontin] 800 mg PO QID 02/28/15 [History] Insulin Aspart [NovoLOG] 15 - 20 units SUBCUT TID 09/12/16 [History] Insulin Detemir [Levemir Flextouch] 30 unit SQ BEDTIME 09/12/16 [History] Past Medical History HEENT History: Reports: Allergic Rhinitis, Other (See Below) Other HEENT History: cracked ear drum Gastrointestinal History: Reports: Cholelithiasis Genitourinary History: Reports: Pyelonephritis, Renal Calculus, UTI, Recurrent Other Genitourinary History: recent renal calculus dx 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 - Past Surgical History GI Surgical History: Reports: Cholecystectomy Musculoskeletal Surgical History: Reports: Other (See Below) Other Musculoskeletal Surgeries/Procedures:: right ankle surgery Dermatological Surgical History: Reports: Other (See Below) Social & Family History - Tobacco Use Smoking Status *Q: Current Every Day Smoker Years of Tobacco use: 17 Packs/Tins Daily: 0.2 Used Tobacco, but Quit: No Second Hand Smoke Exposure: No - Caffeine Use Caffeine Use: Reports: Coffee, Soda - Recreational Drug Use Recreational Drug Use: No Drug Use in Last 12 Months: Yes Recreational Drug Type: Reports: Marijuana/Hashish Recreational Drug Use Frequency: Rarely Recreational Drug Last Use: 2 weeks ago ED ROS GENERAL - Review of Systems Review Of Systems: See Below Constitutional: Reports: No Symptoms Musculoskeletal: Reports: No Symptoms Skin: Reports: Erythema (nodule lateral to the R nipple. Small abscess. ) Neurological: Reports: No Symptoms ED EXAM, GENERAL - Physical Exam Exam: See Below Exam Limited By: No Limitations General Appearance: Alert, WD/WN, No Apparent Distress Ears: Normal External Exam, Normal Canal, Hearing Grossly Normal Ear Exam: Bilateral Ear: Auricle Normal Nose: Normal Inspection, Normal Mucosa, No Blood Throat/Mouth: Normal Inspection, Normal Lips, Normal Voice Head: Atraumatic, Normocephalic Neck: Normal Inspection Respiratory/Chest: No Respiratory Distress Cardiovascular: Regular Rate, Rhythm Skin Exam: Warm, Dry, Intact, Erythema, Other (boil to lateral half of R breast) Lymphatic: No Adenopathy ED GENERAL MEDICAL PROCEDURES - Additional/Other Procedure(s) Other (Free Text) Procedure(s): Boil prep'd with betadine x 3. Anesth with 1% lidocaine with epi x 1.5 ml. Lanced with a #11 blade. Boil explored with a mosquito forceps. A dressing was then applied. Course - Vital Signs Last Recorded V/S: Last Vital Signs Temp 36.9 C 02/10/17 22:48 Pulse 144 H 02/10/17 22:48 Resp 16 02/10/17 22:48 BP 138/99 H 02/10/17 22:48 Pulse Ox 97 02/10/17 22:48 - Orders/Labs/Meds Meds: Medications Discontinued Medications Generic Name Dose Route Start Last Admin Trade Name Bailey PRN Reason Stop Dose Admin Bacitracin 1 dose 02/10/17 23:06 Bacitracin Oint 1 Gm TOP 02/10/17 23:07 ONETIME ONE Lidocaine/Epinephrine 2 ml 02/10/17 22:54 Xylocaine 1% With Epinephrine 1:100,000 SUBCUT 02/10/17 22:55 NOW STA Departure - Departure Time of Disposition: 23:14 Disposition: Home, Self-Care 01 Condition: Good Clinical Impression: Boil, breast - Discharge Information Referrals: Trell Buitrago MD [Primary Care Provider] - Forms: ED Department Discharge Additional Instructions: Keep warm compresses on area several times a day. Use acetaminophen 1000 mg every 6 hrs as needed for pain relief. Recheck with your doctor if worse or not improving. Wash wound with soap and water several times a day or use 1/2 water and 1/2 peroxide.
== END 2017-02-10 23:17 | disposition home or self-care (01) ==
LOC: JP.ED 22:20
DX: N61.1 Abscess of the breast and nipple (principal); F17.210 Nicotine dependence, cigarettes, uncomplicated; E11.9 Type 2 diabetes mellitus without complications; Z79.4 Long term (current) use of insulin; Z79.899 Other long term (current) drug therapy; Z88.0 Allergy status to penicillin; Z88.1 Allergy status to other antibiotic agents; Z88.2 Allergy status to sulfonamides
CPT/HCPCS: 99283

== ENCOUNTER 2017-05-18 12:11 | Inpatient (IN) | payer MEDICAID ==
[2017-05-18] MEDS ORDERED: Sodium Chloride 0.9% 1,000 ML IV SCH ×2 (13:45→17:45)
--- NOTE | 2017-05-18 13:51 | EDM.PDOC ---
ED HPI GENERAL MEDICAL PROBLEM - General Chief Complaint: General Stated Complaint: SHOULDER PAIN/CHEST PAIN/DIABTES ISSUES Time Seen by Provider: 05/18/17 13:34 Source of Information: Reports: Patient, RN Notes Reviewed History Limitations: Reports: No Limitations - History of Present Illness INITIAL COMMENTS - FREE TEXT/NARRATIVE: 36-year-old female presents emergency department today complaint of left shoulder pain and fever, the shoulder pain started about a week and half ago when she fell she has full range of motion but ongoing pain predominately in the middle of the back, the fever Started this morning with nausea and vomiting she has had loose stools, she does have a known history of insulin-dependent diabetes which she admits to not taking medications for a couple weeks. Left Shoulder Pain Score (Numeric/FACES): 6 - Related Data Allergies Allergy/AdvReac Type Severity Reaction Status Date / Time amoxicillin Allergy Rash Verified 05/18/17 12:51 erythromycin base Allergy Rash Verified 05/18/17 12:51 Penicillins Allergy Rash Verified 05/18/17 12:51 Sulfa (Sulfonamide Allergy Rash Verified 05/18/17 12:51 Antibiotics) Home Meds: Home Meds Gabapentin [Neurontin] 800 mg PO QID 02/28/15 [History] Insulin Aspart [NovoLOG] 15 - 20 units SUBCUT TID 09/12/16 [History] Insulin Detemir [Levemir Flextouch] 30 unit SQ BEDTIME 09/12/16 [History] Past Medical History HEENT History: Reports: Allergic Rhinitis, Other (See Below) Other HEENT History: cracked ear drum Gastrointestinal History: Reports: Cholelithiasis Genitourinary History: Reports: Pyelonephritis, Renal Calculus, UTI, Recurrent Other Genitourinary History: recent renal calculus dx 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 - Past Surgical History GI Surgical History: Reports: Cholecystectomy Musculoskeletal Surgical History: Reports: Other (See Below) Other Musculoskeletal Surgeries/Procedures:: right ankle surgery Dermatological Surgical History: Reports: Other (See Below) Social & Family History - Tobacco Use Smoking Status *Q: Current Every Day Smoker Years of Tobacco use: 17 Packs/Tins Daily: 0.2 Used Tobacco, but Quit: No Second Hand Smoke Exposure: No - Caffeine Use Caffeine Use: Reports: Coffee, Soda - Recreational Drug Use Recreational Drug Use: No Drug Use in Last 12 Months: Yes Recreational Drug Type: Reports: Marijuana/Hashish Recreational Drug Use Frequency: Rarely Recreational Drug Last Use: 2 weeks ago ED ROS GENERAL - Review of Systems Review Of Systems: See Below Constitutional: Reports: Fever, Chills HEENT: Reports: No Symptoms Respiratory: Reports: No Symptoms Cardiovascular: Reports: No Symptoms GI/Abdominal: Reports: Abdominal Pain, Nausea, Vomiting : Reports: Flank Pain Musculoskeletal: Reports: No Symptoms Skin: Reports: No Symptoms Neurological: Reports: No Symptoms ED EXAM, GENERAL - Physical Exam Exam: See Below Free Text/Narrative:: General: Female, moderate discomfort, alert and oriented x3 HEENT: head is atraumatic normocephalic, eyes pupils equal round reactive to light, sclera clear no conjunctivitis appreciated. Ears tympanic membranes clear and sawant landmarks and light reflex are present bilaterally canals are clear. Nose no septal deviation, nares are clear, no blood present. Mouth mucosa is moist and pink no erythema or exudate noted in soft palate, tongue is midline uvula is midline, dentition is intact. Neck: Supple no thyromegaly no tracheal deviation. Nodes: Cervical nodes subclavicular nodes nontender no palpable lymphadenopathy noted. Lungs: clear to auscultation bilaterally with symmetrical respirations, no adventitious noise appreciated. CV: Regular rate and rhythm S1 and S2 appreciated no murmurs rubs or gallops noted. Abdomen: Soft, tender left flank area, no palpable masses or organomegaly appreciated, no distention no guarding bowel sounds are present, No CVA tenderness bilaterally Neuro: Cranial nerves II through XII grossly intact Skin: Warm and dry, intact Extremities: No lower extremity edema appreciated, pedal pulse is +2. Course - Vital Signs Last Recorded V/S: Last Vital Signs Temp 101.1 F H 05/18/17 15:15 Pulse 113 H 05/18/17 15:08 Resp 16 05/18/17 15:08 BP 126/82 05/18/17 15:08 Pulse Ox 98 05/18/17 15:08 - Orders/Labs/Meds Orders: Active Orders 24 hr Category Date Time Status Vital Signs [RC] Q1H Care 05/18/17 13:40 Active Abdomen Pelvis w Cont [CT] Stat Exams 05/18/17 14:57 Taken CULTURE BLOOD [BC] Urgent Lab 05/18/17 13:40 Ordered CULTURE BLOOD [BC] Urgent Lab 05/18/17 14:04 Received Aztreonam [Azactam] 1 gm Med 05/18/17 15:47 Active Sodium Chloride 0.9% [Normal Saline] 50 ml IV ONETIME Iopamidol [Isovue-300 (61%)] Med 05/18/17 15:15 Active 130 ml IV . DIRECTED Lactated Ringers [Ringers, Lactated] 1,000 ml Med 05/18/17 15:12 Active IV BOLUS Sodium Chloride 0.9% [Normal Saline] 1,000 ml Med 05/18/17 13:45 Active IV ASDIRECTED Sodium Chloride 0.9% [Normal Saline] 80 ml Med 05/18/17 15:15 Active IV ASDIRECTED Sodium Chloride 0.9% [Saline Flush] Med 05/18/17 15:08 Active 10 ml FLUSH ASDIRECTED PRN Blood Culture x2 Reflex Set [OM.PC] Urgent Oth 05/18/17 13:40 Ordered Medication Orders Sodium Chloride (Normal Saline) 1,000 mls @ 999 mls/hr IV ASDIRECTED [facility] Last Admin: 05/18/17 14:07 Dose: 999 mls/hr Sodium Chloride (Normal Saline) 80 mls @ 3 mls/sec IV ASDIRECTED [facility] Last Admin: 05/18/17 15:25 Dose: 3 mls/sec Lactated Ringer's (Ringers, Lactated) 1,000 mls @ 999 mls/hr IV BOLUS ONE Stop: 05/18/17 16:12 Last Admin: 05/18/17 15:15 Dose: 999 mls/hr Aztreonam 1 gm/ Sodium (Chloride) 50 mls @ 100 mls/hr IV ONETIME ONE Stop: 05/18/17 16:16 Iopamidol (Isovue-300 (61%)) 130 ml IV . DIRECTED [facility] Last Admin: 05/18/17 15:25 Dose: 130 ml Sodium Chloride (Saline Flush) 10 ml FLUSH ASDIRECTED PRN PRN Reason: Keep Vein Open Last Admin: 05/18/17 15:25 Dose: 10 ml Labs: Laboratory Tests 05/18/17 05/18/17 05/18/17 Range/Units 13:40 13:42 13:45 WBC (4.5-11.0) K/uL RBC (3.30-5.50) M/uL Hgb (12.0-15.0) g/dL Hct (36.0-48.0) % MCV (80-98) fL MCH (27-31) pg MCHC (32-36) % Plt Count (150-400) K/uL Neut % (Auto) (36-66) % Lymph % (Auto) (24-44) % [place] % (Auto) (2-6) % Eos % (Auto) (2-4) % Baso % (Auto) (0-1) % Puncture Site Lt brachial ABG pH 7.629 H* (7.350-7.450) ABG pCO2 16.0 L* (35.0-42.0) mmHg ABG pO2 76.1 (75.0-100.0) mmHg ABG HCO3 17.0 L (22.0-26.0) mmol/L ABG Total CO2 14.3 L (21.0-25.0) mmol/L ABG O2 Saturation 97.8 (95.0-98.0) % ABG O2 Content 18.7 (15.0-23.0) %vol ABG Base Excess -1.7 mm/L ABG Hemoglobin 13.9 (12.0-16.0) g/dL ABG Oxyhemoglobin 95.5 % ABG Carboxyhemoglobin 1.9 H (0.0-1.6) % ABG Methemoglobin 0.5 % José Miguel Test Passed O2 Delivery Device Room air Sodium (140-148) mmol/L Potassium (3.6-5.2) mmol/L Chloride (100-108) mmol/L Carbon Dioxide (21-32) mmol/L Anion Gap (5.0-14.0) mmol/L BUN (7-18) mg/dL Creatinine (0.6-1.0) mg/dL Est Cr Clr Drug Dosing mL/min Estimated GFR (MDRD) (>60) Glucose (74-106) mg/dL Lactic Acid (0.4-2.0) mmol/L Calcium (8.5-10.1) mg/dL Total Bilirubin (0.2-1.0) mg/dL AST (15-37) U/L ALT (12-78) U/L Alkaline Phosphatase (46-116) U/L C-Reactive Protein (0.0-0.3) mg/dL Total Protein (6.4-8.2) g/dL Albumin (3.4-5.0) g/dL Globulin (2.3-3.5) g/dL Albumin/Globulin Ratio (1.2-2.2) Lipase (73-393) U/L Urine Color Yellow Urine Appearance Clear Urine pH 7.0 (4.5-8.0) Ur Specific Roosevelt 1.005 L (1.008-1.030) Urine Protein Negative (NEGATIVE) mg/dL Urine Glucose (UA) 1000 H (NEGATIVE) mg/dL Urine Ketones Negative (NEGATIVE) mg/dL Urine Occult Blood Negative (NEGATIVE) Urine Nitrite Negative (NEGATIVE) Urine Bilirubin Negative (NEGATIVE) Urine Urobilinogen Normal (NORMAL) mg/dL Ur Leukocyte Esterase Negative (NEGATIVE) Urine RBC 0-5 (0-5) Urine WBC 0-5 (0-5) Ur Epithelial Cells Few Amorphous Sediment Not seen Urine Bacteria Few Urine Mucus Not seen Urine HCG, Qual Negative Ketones (NEGATIVE) 05/18/17 05/18/17 05/18/17 Range/Units 13:52 14:04 14:04 WBC 16.7 H (4.5-11.0) K/uL RBC 5.09 (3.30-5.50) M/uL Hgb 14.8 (12.0-15.0) g/dL Hct 42.2 (36.0-48.0) % MCV 83 (80-98) fL MCH 29 (27-31) pg MCHC 35 (32-36) % Plt Count 236 (150-400) K/uL Neut % (Auto) 91 H (36-66) % Lymph % (Auto) 6 L (24-44) % [place] % (Auto) 4 (2-6) % Eos % (Auto) 0 L (2-4) % Baso % (Auto) 0 (0-1) % Puncture Site ABG pH (7.350-7.450) ABG pCO2 (35.0-42.0) mmHg ABG pO2 (75.0-100.0) mmHg ABG HCO3 (22.0-26.0) mmol/L ABG Total CO2 (21.0-25.0) mmol/L ABG O2 Saturation (95.0-98.0) % ABG O2 Content (15.0-23.0) %vol ABG Base Excess mm/L ABG Hemoglobin (12.0-16.0) g/dL ABG Oxyhemoglobin % ABG Carboxyhemoglobin (0.0-1.6) % ABG Methemoglobin % José Miguel Test O2 Delivery Device Sodium 125 L (140-148) mmol/L Potassium 4.3 (3.6-5.2) mmol/L Chloride 92 L (100-108) mmol/L Carbon Dioxide 22 (21-32) mmol/L Anion Gap 15.3 H (5.0-14.0) mmol/L BUN 12 (7-18) mg/dL Creatinine 1.0 (0.6-1.0) mg/dL Est Cr Clr Drug Dosing 76.36 mL/min Estimated GFR (MDRD) > 60 (>60) Glucose 678 H* (74-106) mg/dL Lactic Acid (0.4-2.0) mmol/L Calcium 9.5 (8.5-10.1) mg/dL Total Bilirubin 0.6 D (0.2-1.0) mg/dL AST 61 H (15-37) U/L ALT 63 (12-78) U/L Alkaline Phosphatase 119 H (46-116) U/L C-Reactive Protein 9.99 H (0.0-0.3) mg/dL Total Protein 7.5 (6.4-8.2) g/dL Albumin 3.3 L (3.4-5.0) g/dL Globulin 4.2 H (2.3-3.5) g/dL Albumin/Globulin Ratio 0.8 L (1.2-2.2) Lipase 257 (73-393) U/L Urine Color Urine Appearance Urine pH (4.5-8.0) Ur Specific Roosevelt (1.008-1.030) Urine Protein (NEGATIVE) mg/dL Urine Glucose (UA) (NEGATIVE) mg/dL Urine Ketones (NEGATIVE) mg/dL Urine Occult Blood (NEGATIVE) Urine Nitrite (NEGATIVE) Urine Bilirubin (NEGATIVE) Urine Urobilinogen (NORMAL) mg/dL Ur Leukocyte Esterase (NEGATIVE) Urine RBC (0-5) Urine WBC (0-5) Ur Epithelial Cells Amorphous Sediment Urine Bacteria Urine Mucus Urine HCG, Qual Ketones (NEGATIVE) 05/18/17 05/18/17 Range/Units 14:04 14:04 WBC (4.5-11.0) K/uL RBC (3.30-5.50) M/uL Hgb (12.0-15.0) g/dL Hct (36.0-48.0) % MCV (80-98) fL MCH (27-31) pg MCHC (32-36) % Plt Count (150-400) K/uL Neut % (Auto) (36-66) % Lymph % (Auto) (24-44) % [place] % (Auto) (2-6) % Eos % (Auto) (2-4) % Baso % (Auto) (0-1) % Puncture Site ABG pH (7.350-7.450) ABG pCO2 (35.0-42.0) mmHg ABG pO2 (75.0-100.0) mmHg ABG HCO3 (22.0-26.0) mmol/L ABG Total CO2 (21.0-25.0) mmol/L ABG O2 Saturation (95.0-98.0) % ABG O2 Content (15.0-23.0) %vol ABG Base Excess mm/L ABG Hemoglobin (12.0-16.0) g/dL ABG Oxyhemoglobin % ABG Carboxyhemoglobin (0.0-1.6) % ABG Methemoglobin % José Miguel Test O2 Delivery Device Sodium (140-148) mmol/L Potassium (3.6-5.2) mmol/L Chloride (100-108) mmol/L Carbon Dioxide (21-32) mmol/L Anion Gap (5.0-14.0) mmol/L BUN (7-18) mg/dL Creatinine (0.6-1.0) mg/dL Est Cr Clr Drug Dosing mL/min Estimated GFR (MDRD) (>60) Glucose (74-106) mg/dL Lactic Acid 3.5 H (0.4-2.0) mmol/L Calcium (8.5-10.1) mg/dL Total Bilirubin (0.2-1.0) mg/dL AST (15-37) U/L ALT (12-78) U/L Alkaline Phosphatase (46-116) U/L C-Reactive Protein (0.0-0.3) mg/dL Total Protein (6.4-8.2) g/dL Albumin (3.4-5.0) g/dL Globulin (2.3-3.5) g/dL Albumin/Globulin Ratio (1.2-2.2) Lipase (73-393) U/L Urine Color Urine Appearance Urine pH (4.5-8.0) Ur Specific [place] (1.008-1.030) Urine Protein (NEGATIVE) mg/dL Urine Glucose (UA) (NEGATIVE) mg/dL Urine Ketones (NEGATIVE) mg/dL Urine Occult Blood (NEGATIVE) Urine Nitrite (NEGATIVE) Urine Bilirubin (NEGATIVE) Urine Urobilinogen (NORMAL) mg/dL Ur Leukocyte Esterase (NEGATIVE) Urine RBC (0-5) Urine WBC (0-5) Ur Epithelial Cells Amorphous Sediment Urine Bacteria Urine Mucus Urine HCG, Qual Ketones Negative (NEGATIVE) Meds: Medications Generic Name Dose Route Start Last Admin Trade Name Freq PRN Reason Stop Dose Admin Sodium Chloride 1,000 mls @ 999 mls/hr 05/18/17 13:45 05/18/17 14:07 Normal Saline IV 999 mls/hr ASDIRECTED [facility] Administration Sodium Chloride 80 mls @ 3 mls/sec 05/18/17 15:15 05/18/17 15:25 Normal Saline IV 3 mls/sec ASDIRECTED [facility] Administration Lactated Ringer's 1,000 mls @ 999 mls/hr 05/18/17 15:12 05/18/17 15:15 Ringers, Lactated IV 05/18/17 16:12 999 mls/hr BOLUS ONE Administration Aztreonam 1 gm/ Sodium 50 mls @ 100 mls/hr 05/18/17 15:47 Chloride IV 05/18/17 16:16 ONETIME ONE Iopamidol 130 ml 05/18/17 15:15 05/18/17 15:25 Isovue-300 (61%) IV 130 ml . DIRECTED [facility]Z Administration Sodium Chloride 10 ml 05/18/17 15:08 05/18/17 15:25 Saline Flush FLUSH 10 ml ASDIRECTED PRN Administration Keep Vein Open Discontinued Medications Generic Name Dose Route Start Last Admin Trade Name Freq PRN Reason Stop Dose Admin Hydromorphone HCl 1 mg 05/18/17 15:06 05/18/17 15:15 Dilaudid IVPUSH 05/18/17 15:07 1 mg ONETIME ONE Administration Ibuprofen 600 mg 05/18/17 15:08 05/18/17 15:15 Motrin PO 05/18/17 15:09 600 mg ONETIME ONE Administration Insulin Human Regular 10 unit 05/18/17 14:55 05/18/17 15:00 Novolin R IVPUSH 05/18/17 14:56 10 units ONETIME ONE Administration Protocol Ondansetron HCl 4 mg 05/18/17 15:06 05/18/17 15:16 Zofran IVPUSH 05/18/17 15:07 4 mg ONETIME ONE Administration Departure - Departure Time of Disposition: 16:01 Disposition: Admitted As Inpatient 67 Condition: Good Clinical Impression: Pyelonephritis - Discharge Information Referrals: Trell Buitrago MD [Primary Care Provider] - Forms: ED Department Discharge - My Orders Last 24 Hours: My Active Orders 05/18/17 13:40 Vital Signs [RC] Q1H CULTURE BLOOD [BC] Urgent Blood Culture x2 Reflex Set [OM.PC] Urgent 05/18/17 13:45 Sodium Chloride 0.9% [Normal Saline] 1,000 ml IV ASDIRECTED 05/18/17 14:04 CULTURE BLOOD [BC] Urgent 05/18/17 14:57 Abdomen Pelvis w Cont [CT] Stat 05/18/17 15:08 Sodium Chloride 0.9% [Saline Flush] 10 ml FLUSH ASDIRECTED PRN 05/18/17 15:12 Lactated Ringers [Ringers, Lactated] 1,000 ml IV BOLUS 05/18/17 15:15 Iopamidol [Isovue-300 (61%)] 130 ml IV . DIRECTED Sodium Chloride 0.9% [Normal Saline] 80 ml IV ASDIRECTED 05/18/17 15:47 Aztreonam [Azactam] 1 gm Sodium Chloride 0.9% [Normal Saline] 50 ml IV ONETIME - Assessment/Plan Last 24 Hours: My Active Orders 05/18/17 13:40 Vital Signs [RC] Q1H CULTURE BLOOD [BC] Urgent Blood Culture x2 Reflex Set [OM.PC] Urgent 05/18/17 13:45 Sodium Chloride 0.9% [Normal Saline] 1,000 ml IV ASDIRECTED 05/18/17 14:04 CULTURE BLOOD [BC] Urgent 05/18/17 14:57 Abdomen Pelvis w Cont [CT] Stat 05/18/17 15:08 Sodium Chloride 0.9% [Saline Flush] 10 ml FLUSH ASDIRECTED PRN 05/18/17 15:12 Lactated Ringers [Ringers, Lactated] 1,000 ml IV BOLUS 05/18/17 15:15 Iopamidol [Isovue-300 (61%)] 130 ml IV . DIRECTED Sodium Chloride 0.9% [Normal Saline] 80 ml IV ASDIRECTED 05/18/17 15:47 Aztreonam [Azactam] 1 gm Sodium Chloride 0.9% [Normal Saline] 50 ml IV ONETIME Plan: Assessment Acuity = acute Site and laterality = pyelonephritis complicated patient with known history of diabetes mellitus type 2 insulin-dependent Etiology = suspicious for bacterial cause Manifestations = fever, flank pain, hyperglycemia Location of injury = Home Lab values = WBC elevated 16.7 consistent leukocytosis, pH 7.63, PCO2 16 a bicarbonate 17 glucose elevated at 678 consistent hyperglycemia lactic acid elevated at 3.5 consistent lactic acidosis CRP elevated 9.99 albumin low at 2.3 consistent hypoalbuminemia urinalysis reveals 1000 glucose consistent glucose urea no ketones in urine or blood CT scan describes pyelonephritis listed above Plan Called discussed case with Dr. Lopez hospitalist balance wheel motion inspector he kindly agreed to come and evaluate the patient in the emergency department for admission blood cultures have been drawn she has received 1.5 L of fluid antibiotics of Azactam initiated This note was dictated using [employer] voice recognition software please call with any questions on syntax or lauri.
--- NOTE | 2017-05-18 14:57 | CR ---
No fracture or dislocation.
[2017-05-18] MEDS: Insulin Regular, Human 100 Units/ML 10 ML Vial IVPUSH ONE (15:00)
[2017-05-18] MEDS ORDERED: Ondansetron 4 MG/2 ML SDV IVPUSH ONE (15:06)
[2017-05-18] MEDS ORDERED: HYDROmorphone 1 MG/ML Syringe IVPUSH ONE (15:06)
[2017-05-18] MEDS ORDERED: Ibuprofen 600 MG Tab PO ONE (15:08)
[2017-05-18] MEDS ORDERED: Sodium Chloride 0.9% 10 ML Syringe FLUSH PRN (15:08)
[2017-05-18] MEDS ORDERED: Lactated Ringers 1,000 ML IV ONE (15:12)
[2017-05-18] MEDS ORDERED: Sodium Chloride 0.9% 80 ML IV SCH (15:15)
[2017-05-18] MEDS ORDERED: Iopamidol 612 MG/ML 150 ML Bottle IV SCH (15:15)
[2017-05-18] MEDS ORDERED: Aztreonam/Dextrose-Water 1 GM in Premix Bag 1 BAG IV ONE (16:45)
--- NOTE | 2017-05-18 17:19 | PCM.HP ---
H&P History of Present Illness - General Date of Service: 05/18/17 Admit Problem/Dx: Admission Diagnosis/Problem Admission Diagnosis/Problem Pyelonephritis Source of Information: Patient, Provider History Limitations: Reports: No Limitations - History of Present Illness Initial Comments - Free Text/Narative: Jerrod presents to the emergency room today with right flank pain, shaking chills and increased urinary frequency. She reports initial onset of abdominal pain approximately 3 days ago. She had initially mild achy pain in the right side of her abdomen but it has progressed to moderate or moderately severe. The pain radiates throughout the right side of her abdomen and is worse with any sort of movement or pressure. She has had normal bowel movements. She has noticed increased urinary frequency and some mild dysuria but that it was because her blood sugars have been running high. She has had subjective fevers as well as episodes of shaking chills at home. Appetite has been down from usual. She has had episodes of pyelonephritis in the past and this feels similar. Last night she had some difficulty with nausea and vomiting but this seems to have improved. She has not taken her insulin in approximately 3 weeks and has not been checking her blood sugars. She stopped using the medication because she was tired of keeping track of her sugars and poking herself with needles. Workup in the emergency room was suggestive of pyelonephritis with sepsis syndrome. She has been started on antibiotics and cultures have been obtained. She will be admitted for further management. Left Shoulder Pain Score (Numeric/FACES): 4 - Related Data Allergies/Adverse Reactions: Allergies Allergy/AdvReac Type Severity Reaction Status Date / Time amoxicillin Allergy Rash Verified 05/18/17 12:51 erythromycin base Allergy Rash Verified 05/18/17 12:51 Penicillins Allergy Rash Verified 05/18/17 12:51 Sulfa (Sulfonamide Allergy Rash Verified 05/18/17 12:51 Antibiotics) Home Medications: Home Meds Gabapentin [Neurontin] 800 mg PO QID 02/28/15 [History] Insulin Aspart [NovoLOG] 15 - 20 units SUBCUT TID 09/12/16 [History] Insulin Detemir [Levemir Flextouch] 30 unit SQ BEDTIME 09/12/16 [History] Past Medical History HEENT History: Reports: Allergic Rhinitis, Other (See Below) Other HEENT History: cracked ear drum Gastrointestinal History: Reports: Cholelithiasis Genitourinary History: Reports: Pyelonephritis, Renal Calculus, UTI, Recurrent Other Genitourinary History: recent renal calculus dx CHICKEN STUFFER History: Reports: , 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 - Past Surgical History GI Surgical History: Reports: Cholecystectomy Musculoskeletal Surgical History: Reports: Other (See Below) Other Musculoskeletal Surgeries/Procedures:: right ankle surgery Dermatological Surgical History: Reports: Other (See Below) Social & Family History - Family History Endocrine/Metabolic: Reports: Diabetes, type II - Tobacco Use Smoking Status *Q: Current Every Day Smoker Years of Tobacco use: 17 Packs/Tins Daily: 0.2 Used Tobacco, but Quit: No Second Hand Smoke Exposure: No - Caffeine Use Caffeine Use: Reports: Coffee, Soda - Alcohol Use Alcohol Use History: No - Recreational Drug Use Recreational Drug Use: No Drug Use in Last 12 Months: Yes Recreational Drug Type: Reports: Marijuana/Hashish Recreational Drug Use Frequency: Rarely Recreational Drug Last Use: 2 weeks ago H&P Review of Systems - Review of Systems: Review Of Systems: See Below Free Text/Narrative: A complete 12 point review of systems was obtained. Pertinent positives and negatives are noted in the history of present illness. All other systems were reviewed and were negative except as noted. Exam - Exam Exam: See Below - Vital Signs Vital Signs: Last Vital Signs Temp 37.7 C 05/18/17 16:25 Pulse 102 H 05/18/17 16:47 Resp 16 05/18/17 16:25 BP 111/57 L 05/18/17 16:47 Pulse Ox 94 L 05/18/17 16:25 Weight: 86.636 kg - Exam Quality Assessment: No: Supplemental Oxygen General: Alert, Oriented, Cooperative. No: Mild Distress HEENT: Conjunctiva Clear, Mucosa Moist & [place]. No: Scleral Icterus Neck: Supple, Trachea Midline. No: Lymphadenopathy Lungs: Clear to Auscultation, Normal Respiratory Effort Cardiovascular: Regular Rate, Regular Rhythm GI/Abdominal Exam: Normal Bowel Sounds, Soft, No Distention, Tender (Right lateral abdomen and right flank) Back Exam: CVA Tenderness (R). No: Muscle Spasm Extremities: No Pedal Edema. No: Increased Warmth Peripheral Pulses: 2+: Dorsalis Pedis (L), Dorsalis Pedis (R) Skin: Warm, Dry Neuro Extensive - Mental Status: Alert, Oriented x3, Nl Response to Commands Neuro Extensive - Motor, Sensory, Reflexes: CN II-XII Intact. No: Dysarthria, Abnormal Motor, Tremor Psychiatric: Alert, Normal Affect - Patient Data Lab Results Last 24 hrs: Laboratory Results - last 24 hr 05/18/17 05/18/17 05/18/17 Range/Units 13:40 13:42 13:45 WBC (4.5-11.0) K/uL RBC (3.30-5.50) M/uL Hgb (12.0-15.0) g/dL Hct (36.0-48.0) % MCV (80-98) fL MCH (27-31) pg MCHC (32-36) % Plt Count (150-400) K/uL Neut % (Auto) (36-66) % Lymph % (Auto) (24-44) % [place] % (Auto) (2-6) % Eos % (Auto) (2-4) % Baso % (Auto) (0-1) % Puncture Site Lt brachial ABG pH 7.629 H* (7.350-7.450) ABG pCO2 16.0 L* (35.0-42.0) mmHg ABG pO2 76.1 (75.0-100.0) mmHg ABG HCO3 17.0 L (22.0-26.0) mmol/L ABG Total CO2 14.3 L (21.0-25.0) mmol/L ABG O2 Saturation 97.8 (95.0-98.0) % ABG O2 Content 18.7 (15.0-23.0) %vol ABG Base Excess -1.7 mm/L ABG Hemoglobin 13.9 (12.0-16.0) g/dL ABG Oxyhemoglobin 95.5 % ABG Carboxyhemoglobin 1.9 H (0.0-1.6) % ABG Methemoglobin 0.5 % José Miguel Test Passed O2 Delivery Device Room air Sodium (140-148) mmol/L Potassium (3.6-5.2) mmol/L Chloride (100-108) mmol/L Carbon Dioxide (21-32) mmol/L Anion Gap (5.0-14.0) mmol/L BUN (7-18) mg/dL Creatinine (0.6-1.0) mg/dL Est Cr Clr Drug Dosing mL/min Estimated GFR (MDRD) (>60) Glucose (74-106) mg/dL Lactic Acid (0.4-2.0) mmol/L Calcium (8.5-10.1) mg/dL Total Bilirubin (0.2-1.0) mg/dL AST (15-37) U/L ALT (12-78) U/L Alkaline Phosphatase (46-116) U/L C-Reactive Protein (0.0-0.3) mg/dL Total Protein (6.4-8.2) g/dL Albumin (3.4-5.0) g/dL Globulin (2.3-3.5) g/dL Albumin/Globulin Ratio (1.2-2.2) Lipase (73-393) U/L Urine Color Yellow Urine Appearance Clear Urine pH 7.0 (4.5-8.0) Ur Specific [place] 1.005 L (1.008-1.030) Urine Protein Negative (NEGATIVE) mg/dL Urine Glucose (UA) 1000 H (NEGATIVE) mg/dL Urine Ketones Negative (NEGATIVE) mg/dL Urine Occult Blood Negative (NEGATIVE) Urine Nitrite Negative (NEGATIVE) Urine Bilirubin Negative (NEGATIVE) Urine Urobilinogen Normal (NORMAL) mg/dL Ur Leukocyte Esterase Negative (NEGATIVE) Urine RBC 0-5 (0-5) Urine WBC 0-5 (0-5) Ur Epithelial Cells Few Amorphous Sediment Not seen Urine Bacteria Few Urine Mucus Not seen Urine HCG, Qual Negative Ketones (NEGATIVE) 05/18/17 05/18/17 05/18/17 Range/Units 13:52 14:04 14:04 WBC 16.7 H (4.5-11.0) K/uL RBC 5.09 (3.30-5.50) M/uL Hgb 14.8 (12.0-15.0) g/dL Hct 42.2 (36.0-48.0) % MCV 83 (80-98) fL MCH 29 (27-31) pg MCHC 35 (32-36) % Plt Count 236 (150-400) K/uL Neut % (Auto) 91 H (36-66) % Lymph % (Auto) 6 L (24-44) % [place] % (Auto) 4 (2-6) % Eos % (Auto) 0 L (2-4) % Baso % (Auto) 0 (0-1) % Puncture Site ABG pH (7.350-7.450) ABG pCO2 (35.0-42.0) mmHg ABG pO2 (75.0-100.0) mmHg ABG HCO3 (22.0-26.0) mmol/L ABG Total CO2 (21.0-25.0) mmol/L ABG O2 Saturation (95.0-98.0) % ABG O2 Content (15.0-23.0) %vol ABG Base Excess mm/L ABG Hemoglobin (12.0-16.0) g/dL ABG Oxyhemoglobin % ABG Carboxyhemoglobin (0.0-1.6) % ABG Methemoglobin % José Miguel Test O2 Delivery Device Sodium 125 L (140-148) mmol/L Potassium 4.3 (3.6-5.2) mmol/L Chloride 92 L (100-108) mmol/L Carbon Dioxide 22 (21-32) mmol/L Anion Gap 15.3 H (5.0-14.0) mmol/L BUN 12 (7-18) mg/dL Creatinine 1.0 (0.6-1.0) mg/dL Est Cr Clr Drug Dosing 76.36 mL/min Estimated GFR (MDRD) > 60 (>60) Glucose 678 H* (74-106) mg/dL Lactic Acid (0.4-2.0) mmol/L Calcium 9.5 (8.5-10.1) mg/dL Total Bilirubin 0.6 D (0.2-1.0) mg/dL AST 61 H (15-37) U/L ALT 63 (12-78) U/L Alkaline Phosphatase 119 H (46-116) U/L C-Reactive Protein 9.99 H (0.0-0.3) mg/dL Total Protein 7.5 (6.4-8.2) g/dL Albumin 3.3 L (3.4-5.0) g/dL Globulin 4.2 H (2.3-3.5) g/dL Albumin/Globulin Ratio 0.8 L (1.2-2.2) Lipase 257 (73-393) U/L Urine Color Urine Appearance Urine pH (4.5-8.0) Ur Specific [place] (1.008-1.030) Urine Protein (NEGATIVE) mg/dL Urine Glucose (UA) (NEGATIVE) mg/dL Urine Ketones (NEGATIVE) mg/dL Urine Occult Blood (NEGATIVE) Urine Nitrite (NEGATIVE) Urine Bilirubin (NEGATIVE) Urine Urobilinogen (NORMAL) mg/dL Ur Leukocyte Esterase (NEGATIVE) Urine RBC (0-5) Urine WBC (0-5) Ur Epithelial Cells Amorphous Sediment Urine Bacteria Urine Mucus Urine HCG, Qual Ketones (NEGATIVE) 05/18/17 05/18/17 Range/Units 14:04 14:04 WBC (4.5-11.0) K/uL RBC (3.30-5.50) M/uL Hgb (12.0-15.0) g/dL Hct (36.0-48.0) % MCV (80-98) fL MCH (27-31) pg MCHC (32-36) % Plt Count (150-400) K/uL Neut % (Auto) (36-66) % Lymph % (Auto) (24-44) % [place] % (Auto) (2-6) % Eos % (Auto) (2-4) % Baso % (Auto) (0-1) % Puncture Site ABG pH (7.350-7.450) ABG pCO2 (35.0-42.0) mmHg ABG pO2 (75.0-100.0) mmHg ABG HCO3 (22.0-26.0) mmol/L ABG Total CO2 (21.0-25.0) mmol/L ABG O2 Saturation (95.0-98.0) % ABG O2 Content (15.0-23.0) %vol ABG Base Excess mm/L ABG Hemoglobin (12.0-16.0) g/dL ABG Oxyhemoglobin % ABG Carboxyhemoglobin (0.0-1.6) % ABG Methemoglobin % José Miguel Test O2 Delivery Device Sodium (140-148) mmol/L Potassium (3.6-5.2) mmol/L Chloride (100-108) mmol/L Carbon Dioxide (21-32) mmol/L Anion Gap (5.0-14.0) mmol/L BUN (7-18) mg/dL Creatinine (0.6-1.0) mg/dL Est Cr Clr Drug Dosing mL/min Estimated GFR (MDRD) (>60) Glucose (74-106) mg/dL Lactic Acid 3.5 H (0.4-2.0) mmol/L Calcium (8.5-10.1) mg/dL Total Bilirubin (0.2-1.0) mg/dL AST (15-37) U/L ALT (12-78) U/L Alkaline Phosphatase (46-116) U/L C-Reactive Protein (0.0-0.3) mg/dL Total Protein (6.4-8.2) g/dL Albumin (3.4-5.0) g/dL Globulin (2.3-3.5) g/dL Albumin/Globulin Ratio (1.2-2.2) Lipase (73-393) U/L Urine Color Urine Appearance Urine pH (4.5-8.0) Ur Specific [place] (1.008-1.030) Urine Protein (NEGATIVE) mg/dL Urine Glucose (UA) (NEGATIVE) mg/dL Urine Ketones (NEGATIVE) mg/dL Urine Occult Blood (NEGATIVE) Urine Nitrite (NEGATIVE) Urine Bilirubin (NEGATIVE) Urine Urobilinogen (NORMAL) mg/dL Ur Leukocyte Esterase (NEGATIVE) Urine RBC (0-5) Urine WBC (0-5) Ur Epithelial Cells Amorphous Sediment Urine Bacteria Urine Mucus Urine HCG, Qual Ketones Negative (NEGATIVE) Result Diagrams: 05/18/17 14:04 05/18/17 14:04 Uli Results Last 24 hrs: Microbiology 05/18/17 15:10 Influenza Type A Antigen Screen - Final Nasal Aspirate, Unspecified NEGATIVE INFLUENZA A VIRUS AG Influenza Type B Antigen Screen - Final NEGATIVE INFLUENZA B VIRUS AG Imaging Impressions Last 24 hrs: CT scan of the abdomen and pelvis - images personally reviewed - there is some evidence for pyelonephritis of the right kidney with a hypodensity noted inside the parenchyma. No surrounding stranding. No other intra-abdominal pathology is noted. *Q Meaningful Use (ADM) - VTE *Q VTE Criteria *Q: - VTE Risk Assess *Q Each Risk Factor Represents 1 Point: Obesity ( BMI > 25 kg/m2) Total Score 1 Point Risk Factors: 1 Each Risk Factor Represents 2 Points: None Total Score 2 Point Risk Factors: 0 Each Risk Factor Represents 3 Points: None Total Score 3 Point Risk Factors: 0 Each Risk Factor Represents 5 Points: None Total Score 5 Point Risk Factors: 0 Venous Thromboembolism Risk Factor Score *Q: 1 - Stroke *Q Stroke Criteria *Q: - AMI *Q AMI Criteria *Q: - Problem List (1) Pyelonephritis SNOMED Code(s): 63726174 ICD Code: N12 - TUBULO-INTERSTITIAL NEPHRITIS, NOT SPCF ACUTE OR CHRONIC Status: Acute Current Visit: Yes (2) Diabetes mellitus with hyperglycemia, with long-term current use of insulin SNOMED Code(s): 06381367 ICD Code: E11.65 - TYPE 2 DIABETES MELLITUS WITH HYPERGLYCEMIA; Z79.4 - ON LINE CSR (CURRENT) USE OF INSULIN Status: Acute Current Visit: Yes Qualifiers: Diabetes mellitus type: type 2 Qualified Code(s): E11.65 - Type 2 diabetes mellitus with hyperglycemia; Z79.4 - assisted (current) use of insulin; Z79.4 - assisted (current) use of insulin; Z79.4 - long term care social worker (current) use of insulin ; Z79.4 - assisted (current) use of insulin Problem List Initiated/Reviewed/Updated: Yes Orders Last 24hrs: Active Orders 24 hr Category Date Time Status Patient Status Manage Transfer [TRANSFER] Routine ADT 05/18/17 17:10 Ordered Vital Signs [RC] Q1H Care 05/18/17 13:40 Active Abdomen Pelvis w Cont [CT] Stat Exams 05/18/17 14:57 Taken CULTURE BLOOD [BC] Urgent Lab 05/18/17 13:40 Ordered CULTURE BLOOD [BC] Urgent Lab 05/18/17 14:04 Received CULTURE URINE [RM] Stat Lab 05/18/17 17:12 Received Iopamidol [Isovue-300 (61%)] Med 05/18/17 15:15 Active 130 ml IV . DIRECTED Sodium Chloride 0.9% [Normal Saline] 1,000 ml Med 05/18/17 13:45 Active IV ASDIRECTED Sodium Chloride 0.9% [Normal Saline] 80 ml Med 05/18/17 15:15 Active IV ASDIRECTED Sodium Chloride 0.9% [Saline Flush] Med 05/18/17 15:08 Active 10 ml FLUSH ASDIRECTED PRN Blood Culture x2 Reflex Set [OM.PC] Urgent Oth 05/18/17 13:40 Ordered Resuscitation Status Routine Resus Stat 05/18/17 17:11 Ordered Medication Orders Sodium Chloride (Normal Saline) 1,000 mls @ 999 mls/hr IV ASDIRECTED SHAHBAZ Last Admin: 05/18/17 14:07 Dose: 999 mls/hr Sodium Chloride (Normal Saline) 80 mls @ 3 mls/sec IV ASDIRECTED SHAHBAZ Last Admin: 05/18/17 15:25 Dose: 3 mls/sec Iopamidol (Isovue-300 (61%)) 130 ml IV . DIRECTED SHAHBAZ Last Admin: 05/18/17 15:25 Dose: 130 ml Sodium Chloride (Saline Flush) 10 ml FLUSH ASDIRECTED PRN PRN Reason: Keep Vein Open Last Admin: 05/18/17 15:25 Dose: 10 ml Assessment/Plan Comment:: ASSESSMENT AND PLAN - Right-sided pyelonephritis with sepsis - CT suggested pyelonephritis and this fits clinically. Patient had tachycardia, tachypnea and elevated lactic acid supporting sepsis diagnosis. She has received 2 L of IV fluids. Vital signs have stabilized. She also has significant hyperglycemia as discussed below. Antibiotics have been initiated and cultures have been obtained. -Antibiotic coverage with aztreonam and ciprofloxacin -Continue fluids overnight -Repeat lactic acid level -Follow-up cultures in the morning -Pain control Insulin-dependent diabetes with hyperglycemia - Patient has not been using medications for the past few weeks. We did discuss the dangers of poorly controlled diabetes but she will need ongoing counseling. There is no evidence for diabetic ketoacidosis at this time. -Levemir 30 units at bedtime -NovoLog with meals -Medium dose sliding scale -Diabetes education Maintenance issues - - DVT prophylaxis - mechanical - GI prophylaxis - not indicated - Nutrition - diabetic diet - Pandey catheter - not indicated CODE STATUS - full code Admission justification - This patient will be admitted for inpatient services and is medically appropriate meeting medical necessity for inpatient admission as outlined in my documentation. I reasonably expect the patient will require inpatient services that span a period time over 2 midnights. I reasonably expect this patient to be discharged or transferred within 96 hours after admission to the [facility]. Disposition - anticipate discharge to home in a few days Primary care physician - Dr Minna Lopez M.D.
[2017-05-18] MEDS ORDERED: Ondansetron 4 MG/2 ML SDV IV PRN (17:45)
[2017-05-18] MEDS ORDERED: Ondansetron 4 MG Tab.DIS PO PRN (17:45)
[2017-05-18] MEDS ORDERED: Acetaminophen 325 MG Tab PO PRN (17:45)
[2017-05-18] MEDS ORDERED: Polyethylene Glycol 3350 Powder 17 GM Packet PO PRN (17:45)
[2017-05-18] MEDS: oxyCODONE 5 MG Tab PO PRN ×2 (18:40→22:54)
[2017-05-18] MEDS: Insulin Aspart 100 Units/ML 3 ML Pen SUBCUT SCH ×2 (18:40→21:50)
[2017-05-18] MEDS: Ciprofloxacin in D5W 400 MG in Premix Bag 1 BAG IV SCH ×2 (18:54)
[2017-05-18] MEDS ORDERED: Insulin Aspart 100 Units/ML 3 ML Pen SUBCUT ONE (20:53)
--- NOTE | 2017-05-18 20:57 | PCM.SN ---
- Free Text/Narrative Note: time: 20:50 call from ICU Nurse, Med over flow O: blood glucose greater than 500 A: hyperglycemia P; give Insulin Novolog 10 units subcut now, recheck blood glucose in 2 hours.
[2017-05-18] MEDS ORDERED: Insulin Detemir 100 Units/ML 3 ML Pen SUBCUT SCH (21:00)
[2017-05-18] MEDS: Gabapentin 400 MG Cap PO SCH (21:09)
[2017-05-19] MEDS: Ciprofloxacin in D5W 400 MG in Premix Bag 1 BAG IV SCH ×2 (05:34)
[2017-05-19] MEDS: Gabapentin 400 MG Cap PO SCH ×4 (05:35→21:19)
[2017-05-19] MEDS: Insulin Aspart 100 Units/ML 3 ML Pen SUBCUT SCH ×7 (06:43→22:39)
[2017-05-19] MEDS: Insulin Regular, Human 100 Units/ML 10 ML Vial IVPUSH ONE (07:24)
[2017-05-19] MEDS: oxyCODONE 5 MG Tab PO PRN ×4 (08:24→21:19)
--- NOTE | 2017-05-19 08:48 | PCM.PN ---
- General Info Date of Service: 05/19/17 Functional Status: Reports: Pain Controlled, Tolerating Diet - Review of Systems General: Reports: Fever Genitourinary: Reports: Flank Pain Systems Review Comment:: No acute events overnight. She did have a fever early this morning. Still having some right flank pain but it's a little better today. Dysuria has resolved. White blood cell count trending down. Tolerating diet with no nausea or vomiting. Blood sugars remained elevated but have improved. Cultures are still pending. - Patient Data Vitals - Most Recent: Last Vital Signs Temp 37.9 C 05/19/17 05:39 Pulse 101 H 05/19/17 04:00 Resp 16 05/19/17 04:00 BP 90/35 L 05/19/17 04:00 Pulse Ox 97 05/19/17 04:00 Weight - Most Recent: 88.949 kg I&O - Last 24 Hours: Intake & Output 05/18/17 05/19/17 05/19/17 22:59 06:59 14:59 Intake Total 200 2500 400 Output Total 1350 1100 Balance -1150 1400 400 Lab Results Last 24 Hours: Laboratory Results - last 24 hr 05/18/17 05/19/17 05/19/17 Range/Units 17:38 05:10 05:10 WBC 11.2 H (4.5-11.0) K/uL RBC 4.63 (3.30-5.50) M/uL Hgb 13.6 (12.0-15.0) g/dL Hct 38.7 (36.0-48.0) % MCV 84 (80-98) fL MCH 29 (27-31) pg MCHC 35 (32-36) % Plt Count 188 (150-400) K/uL Sodium 135 L (140-148) mmol/L Potassium 4.1 (3.6-5.2) mmol/L Chloride 101 (100-108) mmol/L Carbon Dioxide 22 (21-32) mmol/L Anion Gap 16.1 H (5.0-14.0) mmol/L BUN 8 (7-18) mg/dL Creatinine 0.7 (0.6-1.0) mg/dL Est Cr Clr Drug Dosing 109.08 mL/min Estimated GFR (MDRD) > 60 (>60) Glucose 290 H (74-106) mg/dL Lactic Acid 1.8 (0.4-2.0) mmol/L Calcium 8.2 L (8.5-10.1) mg/dL Med Orders - Current: Current Medications Acetaminophen (Tylenol) 650 mg PO Q4H PRN PRN Reason: Pain (Mild 1-3)/fever Last Admin: 05/19/17 04:32 Dose: 650 mg Gabapentin (Neurontin) 800 mg PO QID [facility] Last Admin: 05/19/17 05:35 Dose: 800 mg Hydromorphone HCl (Dilaudid) 0.5 - 1 mg IVPUSH Q2H PRN PRN Reason: Pain (severe 7-10) Aztreonam/Dextrose 1 gm/ (Premix) 50 mls @ 100 mls/hr IV Q8H [facility] Ibuprofen (Motrin) 600 mg PO Q6H PRN PRN Reason: Pain/Fever Insulin Aspart (Novolog) 0 unit SUBCUT QIDACANDBED [facility] PRN Reason: Protocol Last Admin: 05/19/17 06:43 Dose: 6 units Insulin Aspart (Novolog) 10 unit SUBCUT TIDMEALS [facility] Last Admin: 05/19/17 08:03 Dose: 10 unit Insulin Detemir (Levemir) 30 unit SUBCUT BEDTIME [facility] Last Admin: 05/18/17 20:58 Dose: 30 units Ondansetron HCl (Zofran Odt) 4 mg PO Q6H PRN PRN Reason: Nausea able to take PO Ondansetron HCl (Zofran) 4 mg IV Q6H PRN PRN Reason: Nausea/Vomiting Oxycodone HCl (Oxycodone) 5 mg PO Q4H PRN PRN Reason: Pain (moderate 4-6) Last Admin: 05/19/17 08:24 Dose: 5 mg Polyethylene Glycol (Miralax) 17 gm PO DAILY PRN PRN Reason: Constipation Sodium Chloride (Saline Flush) 10 ml FLUSH ASDIRECTED PRN PRN Reason: Keep Vein Open Last Admin: 05/18/17 15:25 Dose: 10 ml Discontinued Medications Hydromorphone HCl (Dilaudid) 1 mg IVPUSH ONETIME ONE Stop: 05/18/17 15:07 Last Admin: 05/18/17 15:15 Dose: 1 mg Sodium Chloride (Normal Saline) 1,000 mls @ 999 mls/hr IV ASDIRECTED [facility] Last Admin: 05/18/17 14:07 Dose: 999 mls/hr Sodium Chloride (Normal Saline) 80 mls @ 3 mls/sec IV ASDIRECTED [facility] Last Admin: 05/18/17 15:25 Dose: 3 mls/sec Lactated Ringer's (Ringers, Lactated) 1,000 mls @ 999 mls/hr IV BOLUS ONE Stop: 05/18/17 16:12 Last Admin: 05/18/17 15:15 Dose: 999 mls/hr Aztreonam/Dextrose 1 gm/ (Premix) 50 mls @ 100 mls/hr IV ONETIME ONE Stop: 05/18/17 17:14 Last Admin: 05/18/17 17:12 Dose: 100 mls/hr Aztreonam 1 gm/ Sodium (Chloride) 50 mls @ 100 mls/hr IV Q8H [facility] Last Admin: 05/19/17 04:30 Dose: 100 mls/hr Ciprofloxacin/Dextrose 400 mg/ (Premix) 200 mls @ 200 mls/hr IV Q12H [facility] Last Admin: 05/19/17 05:34 Dose: 200 mls/hr Sodium Chloride (Normal Saline) 1,000 mls @ 75 mls/hr IV ASDIRECTED [facility] Last Admin: 05/18/17 18:00 Dose: 75 mls/hr Ibuprofen (Motrin) 600 mg PO ONETIME ONE Stop: 05/18/17 15:09 Last Admin: 05/18/17 15:15 Dose: 600 mg Insulin Aspart (Novolog) 10 unit SUBCUT ONETIME ONE Stop: 05/18/17 20:54 Last Admin: 05/18/17 21:07 Dose: 10 units Insulin Human Regular (Novolin R) 10 unit IVPUSH ONETIME ONE PRN Reason: Protocol Stop: 05/18/17 14:56 Last Admin: 05/19/17 07:24 Dose: Not Given Iopamidol (Isovue-300 (61%)) 130 ml IV . DIRECTED [facility] Last Admin: 05/18/17 15:25 Dose: 130 ml Ondansetron HCl (Zofran) 4 mg IVPUSH ONETIME ONE Stop: 05/18/17 15:07 Last Admin: 05/18/17 15:16 Dose: 4 mg - Exam Quality Assessment: No: Supplemental Oxygen General: Alert, Oriented, Cooperative, No Acute Distress Neck: Supple Lungs: Clear to Auscultation, Normal Respiratory Effort Cardiovascular: Regular Rate, Regular Rhythm GI/Abdominal Exam: Soft, No Distention, Tender Extremities: No Pedal Edema Skin: Warm, Dry Psy/Mental Status: Alert, Normal Affect - Problem List & Annotations (1) Pyelonephritis SNOMED Code(s): 52811981 Code(s): N12 - TUBULO-INTERSTITIAL NEPHRITIS, NOT SPCF ACUTE OR CHRONIC Status: Acute Current Visit: Yes (2) Diabetes mellitus with hyperglycemia, with long-term current use of insulin SNOMED Code(s): 36594745 Code(s): E11.65 - TYPE 2 DIABETES MELLITUS WITH HYPERGLYCEMIA; Z79.4 - USP (CURRENT) USE OF INSULIN Status: Acute Current Visit: Yes Qualifiers: Diabetes mellitus type: type 2 Qualified Code(s): E11.65 - Type 2 diabetes mellitus with hyperglycemia; Z79.4 - snf (current) use of insulin; Z79.4 - snf (current) use of insulin; Z79.4 - emt intermediate (current) use of insulin ; Z79.4 - snf (current) use of insulin - Problem List Review Problem List Initiated/Reviewed/Updated: Yes - My Orders Last 24 Hours: My Active Orders 05/18/17 17:11 Resuscitation Status Routine 05/18/17 17:45 Patient Status [ADT] Routine Communication Order [RC] PRN Communication Order [RC] PRN Diabetes Education [RC] Click to Edit Intake and Output [RC] QSHIFT Notify Provider Vital Signs [RC] ASDIRECTED Notify Provider [RC] PRN Oxygen Therapy [RC] PRN Up ad Phoebe [RC] ASDIRECTED Vital Signs [RC] Q4H Acetaminophen [Tylenol] 650 mg PO Q4H PRN HYDROmorphone [Dilaudid] 0.5 - 1 mg IVPUSH Q2H PRN Ibuprofen [Motrin] 600 mg PO Q6H PRN Insulin Aspart [NovoLOG] 10 unit SUBCUT TIDMEALS Ondansetron [Zofran ODT] 4 mg PO Q6H PRN Ondansetron [Zofran] 4 mg IV Q6H PRN Polyethylene Glycol 3350 [MiraLAX] 17 gm PO DAILY PRN oxyCODONE 5 mg PO Q4H PRN Sequential Compression Device [OM.PC] Per Unit Routine 05/18/17 20:00 Insulin Aspart [NovoLOG] See Protocol SUBCUT QIDACANDBED 05/18/17 Dinner Consistent Carbohydrate Diet [DIET] 05/19/17 08:45 Convert IV to Saline Lock [OM.PC] Routine 05/19/17 12:00 Aztreonam/Dextrose-Water [Azactam in Dextrose,Iso-Osmotic 1 GM/50 ML] 1 gm Premix Bag 1 bag IV Q8H 05/19/17 21:00 Ciprofloxacin [Ciprofloxacin HCl] 500 mg PO BID 05/20/17 05:00 BASIC METABOLIC PANEL,BMP [CHEM] Timed CBC W/O DIFF,HEMOGRAM [HEME] Timed (1) 05/20/17 07:30 GLUCOSE POC LAB TO COLLECT [POC] QIDACANDBED 05/20/17 11:30 GLUCOSE POC LAB TO COLLECT [POC] QIDACANDBED 05/20/17 16:30 GLUCOSE POC LAB TO COLLECT [POC] QIDACANDBED 05/20/17 21:00 GLUCOSE POC LAB TO COLLECT [POC] QIDACANDBED 05/21/17 07:30 GLUCOSE POC LAB TO COLLECT [POC] QIDACANDBED 05/21/17 11:30 GLUCOSE POC LAB TO COLLECT [POC] QIDACANDBED 05/21/17 16:30 GLUCOSE POC LAB TO COLLECT [POC] QIDACANDBED 05/21/17 21:00 GLUCOSE POC LAB TO COLLECT [POC] QIDACANDBED 05/22/17 07:30 GLUCOSE POC LAB TO COLLECT [POC] QIDACANDBED 05/22/17 11:30 GLUCOSE POC LAB TO COLLECT [POC] QIDACANDBED 05/22/17 16:30 GLUCOSE POC LAB TO COLLECT [POC] QIDACANDBED 05/22/17 21:00 GLUCOSE POC LAB TO COLLECT [POC] QIDACANDBED 05/23/17 07:30 GLUCOSE POC LAB TO COLLECT [POC] QIDACANDBED 05/23/17 11:30 GLUCOSE POC LAB TO COLLECT [POC] QIDACANDBED 05/23/17 16:30 GLUCOSE POC LAB TO COLLECT [POC] QIDACANDBED 05/23/17 21:00 GLUCOSE POC LAB TO COLLECT [POC] QIDACANDBED 05/24/17 07:30 GLUCOSE POC LAB TO COLLECT [POC] QIDACANDBED - Plan Plan:: ASSESSMENT AND PLAN - Right-sided pyelonephritis with sepsis - CT suggested pyelonephritis and this fits clinically. Clinically improved today but did have another fever overnight. Sepsis seems to have resolved and repeat lactic acid level had improved last night. -Antibiotic coverage with aztreonam and ciprofloxacin -Saline lock IV -Follow-up cultures -Pain control Insulin-dependent diabetes with hyperglycemia - Patient has not been using medications for the past few weeks. Sugars improving but remain elevated. -Levemir 30 units at bedtime -NovoLog with meals -Medium dose sliding scale -Diabetes education Maintenance issues - - DVT prophylaxis - mechanical - GI prophylaxis - not indicated - Nutrition - diabetic diet - Pandey catheter - not indicated Disposition - anticipate discharge to home in 1-2 days Primary care physician - Dr Minna Lopez M.D.
[2017-05-19] MEDS: Aztreonam/Dextrose-Water 1 GM in Premix Bag 1 BAG IV SCH ×2 (12:06→21:13)
[2017-05-19] MEDS: HYDROmorphone 0.5 MG/0.5 ML Syringe IVPUSH PRN ×3 (13:29→23:35)
[2017-05-19] MEDS ORDERED: Insulin Detemir 100 Units/ML 3 ML Pen SUBCUT SCH (21:00)
[2017-05-19] MEDS ORDERED: Insulin Aspart 100 Units/ML 3 ML Pen SUBCUT ONE (21:11)
--- NOTE | 2017-05-19 21:13 | PCM.SN ---
- Free Text/Narrative Note: time: 21:12 call from [address] [place] [address] o; blood glucose greater than 500 A; hyperglycemia p; give Novolog insulin 20 units subcut now keep Levemir insulin at same dose recheck blood glucose in 2 hours, follow sliding scale guidelines
[2017-05-19] MEDS: Ciprofloxacin 500 MG Tab PO SCH (21:19)
[2017-05-20] MEDS: Aztreonam/Dextrose-Water 1 GM in Premix Bag 1 BAG IV SCH (04:09)
[2017-05-20] MEDS: Ibuprofen 600 MG Tab PO PRN ×2 (04:13→10:37)
[2017-05-20] MEDS: oxyCODONE 5 MG Tab PO PRN ×2 (04:13→08:52)
[2017-05-20] MEDS: Gabapentin 400 MG Cap PO SCH ×2 (06:14→09:00)
[2017-05-20] MEDS: Ciprofloxacin 500 MG Tab PO SCH (08:53)
[2017-05-20] MEDS: Insulin Aspart 100 Units/ML 3 ML Pen SUBCUT SCH ×4 (08:53→11:37)
[2017-05-20 11:03] VITALS: BP 111/64
--- NOTE | 2017-05-20 12:04 | PCM.DCSUM1 ---
Discharge Summary - Hospital Course Brief History: 36-year-old female with poorly controlled insulin-dependent diabetes and obesity with BMI greater than 30 who presented with fever and right flank pain. Workup in the emergency room was suggestive of right-sided pyelonephritis with sepsis and she was admitted for further management. - Discharge Data Discharge Date: 05/20/17 Discharge Disposition: Home, Self-Care 01 Condition: Fair - Discharge Diagnosis/Problem(s) (1) Pyelonephritis SNOMED Code(s): 82594270 ICD Code: N12 - TUBULO-INTERSTITIAL NEPHRITIS, NOT SPCF ACUTE OR CHRONIC Status: Acute (2) Sepsis SNOMED Code(s): 66979810 ICD Code: A41.9 - SEPSIS, UNSPECIFIED ORGANISM Status: Acute Qualifiers: Sepsis type: sepsis due to unspecified organism Qualified Code(s): A41.9 - Sepsis, unspecified organism (3) Diabetes mellitus with hyperglycemia, with long-term current use of insulin SNOMED Code(s): 74525720 ICD Code: E11.65 - TYPE 2 DIABETES MELLITUS WITH HYPERGLYCEMIA; 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 Workup in the emergency room was suggestive of sepsis though initially the source of infection was a little bit unclear. Urine sample was not strongly suggestive of infection but CT of the abdomen and pelvis did show evidence for right-sided pyelonephritis. She was given aggressive IV fluids, broad-spectrum antibiotics and cultures were obtained. Lactic acid was elevated at presentation. Also noted at the time of presentation was significant hyperglycemia with blood sugars near 700. There is no evidence for diabetic ketoacidosis and in fact blood gases showed a respiratory alkalosis. Blood sugar did improve with just one dose of supplemental subcutaneous insulin. She was admitted to the hospital for further management. Repeat lactic acid level after volume resuscitation had improved significantly. Over the next 24 hours she improved with antibiotic coverage including ciprofloxacin and aztreonam. Her flank pain did show some improvement. She did have fevers over the first 24 hours but has been afebrile since that time. Her blood cultures have been negative. She has been afebrile for more than 24 hours. Her urine culture unfortunately is growing only mixed jovita and not a predominant organism. I believe that her condition has improved enough that she is safe for outpatient management at this time. We have elected to use ciprofloxacin for management of the urinary tract infection/pyelonephritis. She will complete a total of 10 days of therapy. I did include a prescription for oxycodone to help with her flank pain over the next few days. Regarding her diabetes, the significant hyperglycemia was probably multifactorial with infection contributing as well as the patient's recent noncompliance with home therapy. She reported she had not been taking her insulins because of concerns about painful needles as well as being fearful of using needles. We were able to make a meaningful improvements in her blood sugars during the hospital stay. We have titrated her Levemir as well as the mealtime insulin. Her needle issues were discussed with diabetic education and they will be discussing with her potential monitoring options that may reduce her needle pokes if devices are covered by her insurance. Blood sugars are now down in the 200s. She feels well enough for discharge to home. She does have follow-up with her primary care scheduled and would benefit from additional diabetic education visits as well. She will be going home with Levemir at 45 units at bedtime as well as 15 units of NovoLog with meals. - Patient Instructions Diet: Diabetic Diet Activity: As Tolerated Driving: Do Not Drive (if taking pain pills) Showering/Bathing: May Shower Notify Provider of: Fever, Increased Pain, Nausea and/or Vomiting Other/Special Instructions: 1. You were in the hospital for management of acute pyelonephritis. We did not determine the causative bacteria but you have been improving with your current antibiotic therapy. I recommend 7 additional days of antibiotic therapy with ciprofloxacin. Your next dose is due tonight. You can use acetaminophen and or ibuprofen for mild to moderate pain. Use the oxycodone for severe pain. 2. Regarding your diabetes management,your sugars have not been well controlled and I recommend increasing your insulin dosing. You should take 45 units of Levemir at bedtime. Continue to take 15-20 units of NovoLog with your meals. You could follow up with the diabetic educators to discuss additional monitoring options to potentially reduce the number of needle sticks required in a day. 3. Follow up with Dr. Buitrago in 1-2 weeks to review the hospital stay and discuss diabetes management. 4. Seek medical attention if you develop fever greater than 101, you have severe abdominal pain not controlled with medications at home or if you develop persistent vomiting. - Discharge Plan Prescriptions/Med Rec: Carisoprodol [Soma] 350 mg PO BID PRN #20 tablet PRN Reason: muscle spasm Ciprofloxacin [IJD: Ciprofloxacin HCl] 500 mg PO BID #14 tablet Insulin Detemir [Levemir Flextouch] 45 unit SQ BEDTIME #100 ml oxyCODONE 5 mg PO Q4H PRN #20 tablet PRN Reason: Pain (Moderate 4-6) Home Medications: Home Meds Gabapentin [Neurontin] 800 mg PO QID 02/28/15 [History] Insulin Aspart [NovoLOG] 15 - 20 units SUBCUT TID 09/12/16 [History] Carisoprodol [Soma] 350 mg PO BID PRN #20 tablet 05/20/17 [Rx] Ciprofloxacin [IJD: Ciprofloxacin HCl] 500 mg PO BID #14 tablet 05/20/17 [Rx] Insulin Detemir [Levemir Flextouch] 45 unit SQ BEDTIME #100 ml 05/20/17 [Rx] oxyCODONE 5 mg PO Q4H PRN #20 tablet 05/20/17 [Rx] Patient Handouts: Pyelonephritis, Adult, Hyperglycemia, Ciprofloxacin tablets, Diabetes Mellitus and Food Referrals: Trell Buitrago MD [Primary Care Provider] - (1-2 weeks - follow-up hospital stay for pyelonephritis and uncontrolled diabetes) - Discharge Summary/Plan Comment DC Time >30 min.: No (25) - Patient Data Vitals - Most Recent: Last Vital Signs Temp 36.6 C 05/20/17 11:00 Pulse 78 05/20/17 11:00 Resp 18 05/20/17 11:00 BP 111/64 05/20/17 11:00 Pulse Ox 97 05/20/17 11:00 Weight - Most Recent: 88.949 kg I&O - Last 24 hours: Intake & Output 02/28/18 03/01/18 03/01/18 22:59 06:59 14:59 Intake Total 950 600 Balance 950 600 Lab Results - Last 24 hrs: Laboratory Results - last 24 hr 05/20/17 05/20/17 Range/Units 04:20 04:20 WBC 7.7 (4.5-11.0) K/uL RBC 4.58 (3.30-5.50) M/uL Hgb 13.2 (12.0-15.0) g/dL Hct 39.3 (36.0-48.0) % MCV 86 (80-98) fL MCH 29 (27-31) pg MCHC 34 (32-36) % Plt Count 213 (150-400) K/uL Sodium 140 (140-148) mmol/L Potassium 3.8 (3.6-5.2) mmol/L Chloride 104 (100-108) mmol/L Carbon Dioxide 28 (21-32) mmol/L Anion Gap 8.1 (5.0-14.0) mmol/L BUN 8 (7-18) mg/dL Creatinine 0.6 (0.6-1.0) mg/dL Est Cr Clr Drug Dosing 126.93 mL/min Estimated GFR (MDRD) > 60 (>60) Glucose 236 H (74-106) mg/dL Calcium 8.4 L (8.5-10.1) mg/dL ROMY Results - Last 24 hrs: Microbiology 05/18/17 17:12 Urine Culture - Preliminary Urine, Clean Catch MIXED JOVITA DAY 1 Med Orders - Current: Current Medications Acetaminophen (Tylenol) 650 mg PO Q4H PRN PRN Reason: Pain (Mild 1-3)/fever Last Admin: 05/19/17 04:32 Dose: 650 mg Ciprofloxacin (Ciprofloxacin Hcl) 500 mg PO BID [facility] Last Admin: 05/20/17 08:53 Dose: 500 mg Gabapentin (Neurontin) 800 mg PO QID [facility] Last Admin: 05/20/17 09:00 Dose: 800 mg Hydromorphone HCl (Dilaudid) 0.5 - 1 mg IVPUSH Q2H PRN PRN Reason: Pain (severe 7-10) Last Admin: 05/19/17 23:35 Dose: 1 mg Aztreonam/Dextrose 1 gm/ (Premix) 50 mls @ 100 mls/hr IV Q8H [facility] Last Admin: 05/20/17 04:09 Dose: 100 mls/hr Ibuprofen (Motrin) 600 mg PO Q6H PRN PRN Reason: Pain/Fever Last Admin: 05/20/17 10:37 Dose: 600 mg Insulin Aspart (Novolog) 0 unit SUBCUT QIDACANDBED [facility] PRN Reason: Protocol Last Admin: 05/20/17 11:37 Dose: 10 units Insulin Aspart (Novolog) 15 unit SUBCUT TIDMEALS [facility] Last Admin: 05/20/17 11:36 Dose: 15 units Insulin Detemir (Levemir) 40 unit SUBCUT BEDTIME [facility] Last Admin: 05/19/17 21:21 Dose: 40 units Ondansetron HCl (Zofran Odt) 4 mg PO Q6H PRN PRN Reason: Nausea able to take PO Ondansetron HCl (Zofran) 4 mg IV Q6H PRN PRN Reason: Nausea/Vomiting Oxycodone HCl (Oxycodone) 5 mg PO Q4H PRN PRN Reason: Pain (moderate 4-6) Last Admin: 05/20/17 08:52 Dose: 5 mg Polyethylene Glycol (Miralax) 17 gm PO DAILY PRN PRN Reason: Constipation Sodium Chloride (Saline Flush) 10 ml FLUSH ASDIRECTED PRN PRN Reason: Keep Vein Open Last Admin: 05/18/17 15:25 Dose: 10 ml Discontinued Medications Hydromorphone HCl (Dilaudid) 1 mg IVPUSH ONETIME ONE Stop: 05/18/17 15:07 Last Admin: 05/18/17 15:15 Dose: 1 mg Sodium Chloride (Normal Saline) 1,000 mls @ 999 mls/hr IV ASDIRECTED [facility] Last Admin: 05/18/17 14:07 Dose: 999 mls/hr Sodium Chloride (Normal Saline) 80 mls @ 3 mls/sec IV ASDIRECTED [facility] Last Admin: 05/18/17 15:25 Dose: 3 mls/sec Lactated Ringer's (Ringers, Lactated) 1,000 mls @ 999 mls/hr IV BOLUS ONE Stop: 05/18/17 16:12 Last Admin: 05/18/17 15:15 Dose: 999 mls/hr Aztreonam/Dextrose 1 gm/ (Premix) 50 mls @ 100 mls/hr IV ONETIME ONE Stop: 05/18/17 17:14 Last Admin: 05/18/17 17:12 Dose: 100 mls/hr Aztreonam 1 gm/ Sodium (Chloride) 50 mls @ 100 mls/hr IV Q8H [facility] Last Admin: 05/19/17 04:30 Dose: 100 mls/hr Ciprofloxacin/Dextrose 400 mg/ (Premix) 200 mls @ 200 mls/hr IV Q12H [facility] Last Admin: 05/19/17 05:34 Dose: 200 mls/hr Sodium Chloride (Normal Saline) 1,000 mls @ 75 mls/hr IV ASDIRECTED [facility] Last Admin: 05/18/17 18:00 Dose: 75 mls/hr Ibuprofen (Motrin) 600 mg PO ONETIME ONE Stop: 05/18/17 15:09 Last Admin: 05/18/17 15:15 Dose: 600 mg Insulin Aspart (Novolog) 10 unit SUBCUT TIDMEALS [facility] Last Admin: 05/19/17 17:02 Dose: 10 unit Insulin Aspart (Novolog) 10 unit SUBCUT ONETIME ONE Stop: 05/18/17 20:54 Last Admin: 05/18/17 21:07 Dose: 10 units Insulin Aspart (Novolog) 20 unit SUBCUT ONETIME ONE Stop: 05/19/17 21:12 Last Admin: 05/19/17 21:22 Dose: 20 units Insulin Detemir (Levemir) 30 unit SUBCUT BEDTIME [facility] Last Admin: 05/18/17 20:58 Dose: 30 units Insulin Human Regular (Novolin R) 10 unit IVPUSH ONETIME ONE PRN Reason: Protocol Stop: 05/18/17 14:56 Last Admin: 05/19/17 07:24 Dose: Not Given Iopamidol (Isovue-300 (61%)) 130 ml IV . DIRECTED [facility] Last Admin: 05/18/17 15:25 Dose: 130 ml Ondansetron HCl (Zofran) 4 mg IVPUSH ONETIME ONE Stop: 05/18/17 15:07 Last Admin: 05/18/17 15:16 Dose: 4 mg - Exam Quality Assessment: Denies: Supplemental Oxygen General: Reports: Alert, Oriented, Cooperative, No Acute Distress Neck: Reports: Supple Lungs: Reports: Normal Respiratory Effort Cardiovascular: Reports: Regular Rate, Regular Rhythm GI/Abdominal Exam: Soft, No Distention Extremities: No Pedal Edema Psy/Mental Status: Reports: Alert, Normal Affect *Q Meaningful Use (DIS) - VTE *Q VTE Criteria *Q: - Stroke *Q Stroke Criteria *Q: - AMI *Q AMI Criteria *Q:
== END 2017-05-20 12:25 | disposition home or self-care (01) | DRG 872 ==
LOC: JP.ED 12:11 → JP.ICU 17:10 → JP.MS 05-19 17:58
PROVIDERS: ADMIT Internal Medicine; ATTEND Internal Medicine
DX: A41.9 Sepsis, unspecified organism (principal); N12 Tubulo-interstitial nephritis, not specified as acute or chronic; E11.65 Type 2 diabetes mellitus with hyperglycemia; F17.200 Nicotine dependence, unspecified, uncomplicated; Z79.4 Long term (current) use of insulin; Z79.899 Other long term (current) drug therapy; Z88.0 Allergy status to penicillin; Z88.2 Allergy status to sulfonamides; Z88.8 Allergy status to other drugs, medicaments and biological substances
CPT/HCPCS: 36415; 36600; 73030-26-LT; 73030-LT; 74177; 80048; 80053; 81001; 81025; 82009; 82803; 82962; 83605; 83690; 85025; 85027; 86140; 87040; 87086; 87804; 96361; 96374; 96375; 99285-25; A9270-GY; J0744; J1170; J2405; J3490; J7030; J7040; J7050; J7120; S0073

== ENCOUNTER 2017-08-14 20:13 | Emergency (ER) | payer MEDICAID ==
[2017-08-14] MEDS ORDERED: Ketorolac 60 MG/2 ML SDV IM ONE (21:28)
[2017-08-14] MEDS ORDERED: LORazepam 2 MG/ML SDV IM ONE (21:29)
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
[2017-08-14 21:33] VITALS: BP 124/87
--- NOTE | 2017-08-17 09:26 | CR ---
No fracture or dislocation.
== END 2017-08-14 22:29 | disposition home or self-care (01) ==
LOC: JP.ED 20:13
DX: S43.401A Unspecified sprain of right shoulder joint, initial encounter (principal); S46.911A Strain of unspecified muscle, fascia and tendon at shoulder and upper arm level, right arm, initial encounter; J40 Bronchitis, not specified as acute or chronic; F17.210 Nicotine dependence, cigarettes, uncomplicated; E11.9 Type 2 diabetes mellitus without complications; Z79.4 Long term (current) use of insulin; Z88.2 Allergy status to sulfonamides; Z88.0 Allergy status to penicillin; Z88.1 Allergy status to other antibiotic agents; W16.42XA Fall into unspecified water causing other injury, initial encounter
CPT/HCPCS: 36415; 73030; 80053; 83605; 85025; 86140; 96372; 99284; J1885; J2060

== ENCOUNTER 2017-08-16 18:57 | Inpatient (IN) | payer MEDICAID ==
[2017-08-16] MEDS ORDERED: HYDROmorphone 1 MG/ML Syringe IM ONE (19:19)
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
[2017-08-16] MEDS ORDERED: Sodium Chloride 0.9% 10 ML Syringe FLUSH PRN ×2 (21:44→23:31)
[2017-08-16] MEDS ORDERED: Sodium Chloride 0.9% 1,000 ML IV SCH (21:45)
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
[2017-08-16] MEDS ORDERED: Sodium Phosphate 60 MMOLE in Sodium Chloride 0.9% 250 ML IV PRN (23:31)
[2017-08-16] MEDS ORDERED: Magnesium Hydroxide 400 MG/5 ML Susp 30 ML Cup PO PRN (23:31)
[2017-08-16] MEDS ORDERED: Potassium Chloride 20 MEQ in Premix Bag 1 BAG IV ONE (23:31)
[2017-08-16] MEDS ORDERED: Polyethylene Glycol 3350 Powder 17 GM Packet PO PRN (23:31)
[2017-08-16] MEDS ORDERED: Potassium Chloride 20 MEQ in Premix Bag 1 BAG IV PRN (23:31)
[2017-08-16] MEDS ORDERED: 50% Dextrose in Water 50 ML Syringe IVPUSH PRN (23:31)
[2017-08-16] MEDS ORDERED: Magnesium Sulfate/Water 50 ML IV PRN (23:31)
[2017-08-16] MEDS ORDERED: Insulin Detemir 100 Units/ML 3 ML Pen SUBCUT SCH (23:31)
[2017-08-16] MEDS ORDERED: Ondansetron 4 MG/2 ML SDV IV PRN (23:31)
[2017-08-17] MEDS: Sodium Chloride 0.9% 2,000 ML IV PRN ×5 (00:24→12:18)
[2017-08-17] MEDS: cefTRIAXone 1 GM in Sodium Chloride 0.9% 50 ML IV SCH ×2 (00:36→22:41)
[2017-08-17] MEDS: oxyCODONE 5 MG Tab PO PRN ×6 (01:12→21:13)
[2017-08-17] MEDS: Potassium Chloride 20 MEQ in Premix Bag 1 BAG IV PRN ×2 (02:26→06:25)
[2017-08-17] MEDS: Cyclobenzaprine 10 MG Tab PO PRN (04:37)
[2017-08-17] MEDS: Gabapentin 400 MG Cap PO SCH ×4 (05:59→21:12)
--- NOTE | 2017-08-17 10:37 | PCM.PN ---
- General Info Date of Service: 08/17/17 Subjective Update: Ms. Rodriguez is improved since admission, he no acidosis has not totally resolved with mild persistent elevation in anion gap, CO2 level has not normalized. Continues to experience early widespread musculoskeletal pain. Functional Status: Reports: Tolerating Diet, Urinating - Review of Systems General: Reports: Weakness. Denies: Fever, Chills Pulmonary: Reports: No Symptoms Cardiovascular: Reports: No Symptoms Gastrointestinal: Reports: No Symptoms Musculoskeletal: Reports: Shoulder Pain, Joint Pain - Patient Data Vitals - Most Recent: Last Vital Signs Temp 99.5 F 08/17/17 07:42 Pulse 97 08/17/17 07:42 Resp 20 08/17/17 09:57 BP 124/67 08/17/17 09:57 Pulse Ox 98 08/17/17 09:57 Weight - Most Recent: 174 lb 3.2 oz I&O - Last 24 Hours: Intake & Output 08/16/17 08/17/17 08/17/17 22:59 06:59 14:59 Intake Total 3456 240 Output Total 500 300 Balance 2956 -60 Lab Results Last 24 Hours: Laboratory Results - last 24 hr 08/16/17 08/16/17 08/16/17 Range/Units 18:00 19:28 19:28 WBC 15.2 H (4.5-11.0) K/uL RBC 5.15 (3.30-5.50) M/uL Hgb 14.5 (12.0-15.0) g/dL Hct 43.3 (36.0-48.0) % MCV 84 (80-98) fL MCH 28 (27-31) pg MCHC 34 (32-36) % Plt Count 312 (150-400) K/uL Neut % (Auto) 74 H (36-66) % Lymph % (Auto) 15 L (24-44) % [place] % (Auto) 10 H (2-6) % Eos % (Auto) 1 L (2-4) % Baso % (Auto) 0 (0-1) % Puncture Site ABG pH (7.350-7.450) ABG pCO2 (35.0-42.0) mmHg ABG pO2 (75.0-100.0) mmHg ABG HCO3 (22.0-26.0) mmol/L ABG Total CO2 (21.0-25.0) mmol/L ABG O2 Saturation (95.0-98.0) % ABG O2 Content (15.0-23.0) %vol ABG Base Excess mm/L ABG Hemoglobin (12.0-16.0) g/dL ABG Oxyhemoglobin % ABG Carboxyhemoglobin (0.0-1.6) % ABG Methemoglobin % José Miguel Test O2 Delivery Device Sodium 130 L (140-148) mmol/L Potassium 4.0 (3.6-5.2) mmol/L Chloride 91 L (100-108) mmol/L Carbon Dioxide 19 L (21-32) mmol/L Anion Gap 24.0 H (5.0-14.0) mmol/L BUN 11 D (7-18) mg/dL Creatinine 0.9 (0.6-1.0) mg/dL Est Cr Clr Drug Dosing 80.90 mL/min Estimated GFR (MDRD) > 60 (>60) Glucose 405 H* (74-106) mg/dL Hemoglobin A1c (4.5-6.2) % Lactic Acid 1.7 (0.4-2.0) mmol/L Calcium 8.6 (8.5-10.1) mg/dL Phosphorus (2.5-4.9) mg/dL Magnesium (1.8-2.4) mg/dL Total Bilirubin 0.9 D (0.2-1.0) mg/dL AST 16 (15-37) U/L ALT 34 (12-78) U/L Alkaline Phosphatase 156 H (46-116) U/L Troponin I < 0.017 (0.000-0.056) ng/mL Total Protein 7.7 (6.4-8.2) g/dL Albumin 3.0 L (3.4-5.0) g/dL Globulin 4.7 H (2.3-3.5) g/dL Albumin/Globulin Ratio 0.6 L (1.2-2.2) Urine Color Urine Appearance Urine pH (4.5-8.0) Ur Specific [place] (1.008-1.030) Urine Protein (NEGATIVE) mg/dL Urine Glucose (UA) (NEGATIVE) mg/dL Urine Ketones (NEGATIVE) mg/dL Urine Occult Blood (NEGATIVE) Urine Nitrite (NEGATIVE) Urine Bilirubin (NEGATIVE) Urine Urobilinogen (NORMAL) mg/dL Ur Leukocyte Esterase (NEGATIVE) Urine RBC (0-5) Urine WBC (0-5) Ur Epithelial Cells Amorphous Sediment Urine Bacteria Urine Mucus Urine Opiates Screen (NEGATIVE) Ur Oxycodone Screen (NEGATIVE) Urine Methadone Screen (NEGATIVE) Ur Propoxyphene Screen (NEGATIVE) Ur Barbiturates Screen (NEGATIVE) Ur Tricyclics Screen (NEGATIVE) Ur Phencyclidine Scrn (NEGATIVE) Ur Amphetamine Screen (NEGATIVE) U Methamphetamines Scrn (NEGATIVE) Urine MDMA Screen (NEGATIVE) U Benzodiazepines Scrn (NEGATIVE) U Cocaine Metab Screen (NEGATIVE) U Marijuana (THC) Screen (NEGATIVE) Ketones (NEGATIVE) 08/16/17 08/16/17 08/16/17 Range/Units 19:46 19:46 20:46 WBC (4.5-11.0) K/uL RBC (3.30-5.50) M/uL Hgb (12.0-15.0) g/dL Hct (36.0-48.0) % MCV (80-98) fL MCH (27-31) pg MCHC (32-36) % Plt Count (150-400) K/uL Neut % (Auto) (36-66) % Lymph % (Auto) (24-44) % [place] % (Auto) (2-6) % Eos % (Auto) (2-4) % Baso % (Auto) (0-1) % Puncture Site Rt.radial ABG pH 7.386 (7.350-7.450) ABG pCO2 24.2 L (35.0-42.0) mmHg ABG pO2 78.5 (75.0-100.0) mmHg ABG HCO3 14.2 L (22.0-26.0) mmol/L ABG Total CO2 12.5 L (21.0-25.0) mmol/L ABG O2 Saturation 95.7 (95.0-98.0) % ABG O2 Content 19.1 (15.0-23.0) %vol ABG Base Excess -8.7 mm/L ABG Hemoglobin 14.5 (12.0-16.0) g/dL ABG Oxyhemoglobin 93.8 % ABG Carboxyhemoglobin 1.2 (0.0-1.6) % ABG Methemoglobin 0.8 % José Miguel Test Passed O2 Delivery Device Room air Sodium (140-148) mmol/L Potassium (3.6-5.2) mmol/L Chloride (100-108) mmol/L Carbon Dioxide (21-32) mmol/L Anion Gap (5.0-14.0) mmol/L BUN (7-18) mg/dL Creatinine (0.6-1.0) mg/dL Est Cr Clr Drug Dosing mL/min Estimated GFR (MDRD) (>60) Glucose (74-106) mg/dL Hemoglobin A1c (4.5-6.2) % Lactic Acid (0.4-2.0) mmol/L Calcium (8.5-10.1) mg/dL Phosphorus (2.5-4.9) mg/dL Magnesium (1.8-2.4) mg/dL Total Bilirubin (0.2-1.0) mg/dL AST (15-37) U/L ALT (12-78) U/L Alkaline Phosphatase (46-116) U/L Troponin I (0.000-0.056) ng/mL Total Protein (6.4-8.2) g/dL Albumin (3.4-5.0) g/dL Globulin (2.3-3.5) g/dL Albumin/Globulin Ratio (1.2-2.2) Urine Color Yellow Urine Appearance Clear Urine pH 5.0 (4.5-8.0) Ur Specific [place] 1.020 (1.008-1.030) Urine Protein Negative (NEGATIVE) mg/dL Urine Glucose (UA) 1000 H (NEGATIVE) mg/dL Urine Ketones 150 H (NEGATIVE) mg/dL Urine Occult Blood Negative (NEGATIVE) Urine Nitrite Negative (NEGATIVE) Urine Bilirubin Negative (NEGATIVE) Urine Urobilinogen Normal (NORMAL) mg/dL Ur Leukocyte Esterase Moderate (NEGATIVE) Urine RBC Not seen (0-5) Urine WBC 5-10 H (0-5) Ur Epithelial Cells Few Amorphous Sediment Not seen Urine Bacteria Moderate Urine Mucus Not seen Urine Opiates Screen Negative (NEGATIVE) Ur Oxycodone Screen Negative (NEGATIVE) Urine Methadone Screen Negative (NEGATIVE) Ur Propoxyphene Screen Negative (NEGATIVE) Ur Barbiturates Screen Negative (NEGATIVE) Ur Tricyclics Screen Negative (NEGATIVE) Ur Phencyclidine Scrn Negative (NEGATIVE) Ur Amphetamine Screen Negative (NEGATIVE) U Methamphetamines Scrn Negative (NEGATIVE) Urine MDMA Screen Negative (NEGATIVE) U Benzodiazepines Scrn Negative (NEGATIVE) U Cocaine Metab Screen Negative (NEGATIVE) U Marijuana (THC) Screen Negative (NEGATIVE) Ketones (NEGATIVE) 08/16/17 08/16/17 08/17/17 Range/Units 20:49 23:40 01:33 WBC (4.5-11.0) K/uL RBC (3.30-5.50) M/uL Hgb (12.0-15.0) g/dL Hct (36.0-48.0) % MCV (80-98) fL MCH (27-31) pg MCHC (32-36) % Plt Count (150-400) K/uL Neut % (Auto) (36-66) % Lymph % (Auto) (24-44) % [place] % (Auto) (2-6) % Eos % (Auto) (2-4) % Baso % (Auto) (0-1) % Puncture Site ABG pH (7.350-7.450) ABG pCO2 (35.0-42.0) mmHg ABG pO2 (75.0-100.0) mmHg ABG HCO3 (22.0-26.0) mmol/L ABG Total CO2 (21.0-25.0) mmol/L ABG O2 Saturation (95.0-98.0) % ABG O2 Content (15.0-23.0) %vol ABG Base Excess mm/L ABG Hemoglobin (12.0-16.0) g/dL ABG Oxyhemoglobin % ABG Carboxyhemoglobin (0.0-1.6) % ABG Methemoglobin % José Miguel Test O2 Delivery Device Sodium 132 L (140-148) mmol/L Potassium 2.8 L* 3.2 L (3.6-5.2) mmol/L Chloride 95 L (100-108) mmol/L Carbon Dioxide 18 L (21-32) mmol/L Anion Gap 21.8 H (5.0-14.0) mmol/L BUN 10 (7-18) mg/dL Creatinine 0.9 (0.6-1.0) mg/dL Est Cr Clr Drug Dosing 80.90 mL/min Estimated GFR (MDRD) > 60 (>60) Glucose 297 H (74-106) mg/dL Hemoglobin A1c (4.5-6.2) % Lactic Acid (0.4-2.0) mmol/L Calcium 8.0 L (8.5-10.1) mg/dL Phosphorus 1.9 L (2.5-4.9) mg/dL Magnesium 1.6 L (1.8-2.4) mg/dL Total Bilirubin (0.2-1.0) mg/dL AST (15-37) U/L ALT (12-78) U/L Alkaline Phosphatase (46-116) U/L Troponin I (0.000-0.056) ng/mL Total Protein (6.4-8.2) g/dL Albumin (3.4-5.0) g/dL Globulin (2.3-3.5) g/dL Albumin/Globulin Ratio (1.2-2.2) Urine Color Urine Appearance Urine pH (4.5-8.0) Ur Specific [place] (1.008-1.030) Urine Protein (NEGATIVE) mg/dL Urine Glucose (UA) (NEGATIVE) mg/dL Urine Ketones (NEGATIVE) mg/dL Urine Occult Blood (NEGATIVE) Urine Nitrite (NEGATIVE) Urine Bilirubin (NEGATIVE) Urine Urobilinogen (NORMAL) mg/dL Ur Leukocyte Esterase (NEGATIVE) Urine RBC (0-5) Urine WBC (0-5) Ur Epithelial Cells Amorphous Sediment Urine Bacteria Urine Mucus Urine Opiates Screen (NEGATIVE) Ur Oxycodone Screen (NEGATIVE) Urine Methadone Screen (NEGATIVE) Ur Propoxyphene Screen (NEGATIVE) Ur Barbiturates Screen (NEGATIVE) Ur Tricyclics Screen (NEGATIVE) Ur Phencyclidine Scrn (NEGATIVE) Ur Amphetamine Screen (NEGATIVE) U Methamphetamines Scrn (NEGATIVE) Urine MDMA Screen (NEGATIVE) U Benzodiazepines Scrn (NEGATIVE) U Cocaine Metab Screen (NEGATIVE) U Marijuana (THC) Screen (NEGATIVE) Ketones Moderate H (NEGATIVE) 08/17/17 08/17/17 08/17/17 Range/Units 03:35 03:35 05:23 WBC (4.5-11.0) K/uL RBC (3.30-5.50) M/uL Hgb (12.0-15.0) g/dL Hct (36.0-48.0) % MCV (80-98) fL MCH (27-31) pg MCHC (32-36) % Plt Count (150-400) K/uL Neut % (Auto) (36-66) % Lymph % (Auto) (24-44) % [place] % (Auto) (2-6) % Eos % (Auto) (2-4) % Baso % (Auto) (0-1) % Puncture Site ABG pH (7.350-7.450) ABG pCO2 (35.0-42.0) mmHg ABG pO2 (75.0-100.0) mmHg ABG HCO3 (22.0-26.0) mmol/L ABG Total CO2 (21.0-25.0) mmol/L ABG O2 Saturation (95.0-98.0) % ABG O2 Content (15.0-23.0) %vol ABG Base Excess mm/L ABG Hemoglobin (12.0-16.0) g/dL ABG Oxyhemoglobin % ABG Carboxyhemoglobin (0.0-1.6) % ABG Methemoglobin % José Miguel Test O2 Delivery Device Sodium 135 L (140-148) mmol/L Potassium 3.5 L 3.7 (3.6-5.2) mmol/L Chloride 101 (100-108) mmol/L Carbon Dioxide 20 L (21-32) mmol/L Anion Gap 17.5 H (5.0-14.0) mmol/L BUN 9 (7-18) mg/dL Creatinine 0.6 (0.6-1.0) mg/dL Est Cr Clr Drug Dosing 121.35 mL/min Estimated GFR (MDRD) > 60 (>60) Glucose 196 H (74-106) mg/dL Hemoglobin A1c 12.3 H (4.5-6.2) % Lactic Acid (0.4-2.0) mmol/L Calcium 7.3 L (8.5-10.1) mg/dL Phosphorus 1.8 L (2.5-4.9) mg/dL Magnesium 1.9 (1.8-2.4) mg/dL Total Bilirubin (0.2-1.0) mg/dL AST (15-37) U/L ALT (12-78) U/L Alkaline Phosphatase (46-116) U/L Troponin I (0.000-0.056) ng/mL Total Protein (6.4-8.2) g/dL Albumin (3.4-5.0) g/dL Globulin (2.3-3.5) g/dL Albumin/Globulin Ratio (1.2-2.2) Urine Color Urine Appearance Urine pH (4.5-8.0) Ur Specific [place] (1.008-1.030) Urine Protein (NEGATIVE) mg/dL Urine Glucose (UA) (NEGATIVE) mg/dL Urine Ketones (NEGATIVE) mg/dL Urine Occult Blood (NEGATIVE) Urine Nitrite (NEGATIVE) Urine Bilirubin (NEGATIVE) Urine Urobilinogen (NORMAL) mg/dL Ur Leukocyte Esterase (NEGATIVE) Urine RBC (0-5) Urine WBC (0-5) Ur Epithelial Cells Amorphous Sediment Urine Bacteria Urine Mucus Urine Opiates Screen (NEGATIVE) Ur Oxycodone Screen (NEGATIVE) Urine Methadone Screen (NEGATIVE) Ur Propoxyphene Screen (NEGATIVE) Ur Barbiturates Screen (NEGATIVE) Ur Tricyclics Screen (NEGATIVE) Ur Phencyclidine Scrn (NEGATIVE) Ur Amphetamine Screen (NEGATIVE) U Methamphetamines Scrn (NEGATIVE) Urine MDMA Screen (NEGATIVE) U Benzodiazepines Scrn (NEGATIVE) U Cocaine Metab Screen (NEGATIVE) U Marijuana (THC) Screen (NEGATIVE) Ketones (NEGATIVE) 08/17/17 08/17/17 Range/Units 07:26 09:41 WBC (4.5-11.0) K/uL RBC (3.30-5.50) M/uL Hgb (12.0-15.0) g/dL Hct (36.0-48.0) % MCV (80-98) fL MCH (27-31) pg MCHC (32-36) % Plt Count (150-400) K/uL Neut % (Auto) (36-66) % Lymph % (Auto) (24-44) % [place] % (Auto) (2-6) % Eos % (Auto) (2-4) % Baso % (Auto) (0-1) % Puncture Site ABG pH (7.350-7.450) ABG pCO2 (35.0-42.0) mmHg ABG pO2 (75.0-100.0) mmHg ABG HCO3 (22.0-26.0) mmol/L ABG Total CO2 (21.0-25.0) mmol/L ABG O2 Saturation (95.0-98.0) % ABG O2 Content (15.0-23.0) %vol ABG Base Excess mm/L ABG Hemoglobin (12.0-16.0) g/dL ABG Oxyhemoglobin % ABG Carboxyhemoglobin (0.0-1.6) % ABG Methemoglobin % José Miguel Test O2 Delivery Device Sodium 135 L (140-148) mmol/L Potassium 3.9 4.1 (3.6-5.2) mmol/L Chloride 103 (100-108) mmol/L Carbon Dioxide 19 L (21-32) mmol/L Anion Gap 16.9 H (5.0-14.0) mmol/L BUN 9 (7-18) mg/dL Creatinine 0.6 (0.6-1.0) mg/dL Est Cr Clr Drug Dosing 121.35 mL/min Estimated GFR (MDRD) > 60 (>60) Glucose 162 H (74-106) mg/dL Hemoglobin A1c (4.5-6.2) % Lactic Acid (0.4-2.0) mmol/L Calcium 7.1 L (8.5-10.1) mg/dL Phosphorus (2.5-4.9) mg/dL Magnesium (1.8-2.4) mg/dL Total Bilirubin (0.2-1.0) mg/dL AST (15-37) U/L ALT (12-78) U/L Alkaline Phosphatase (46-116) U/L Troponin I (0.000-0.056) ng/mL Total Protein (6.4-8.2) g/dL Albumin (3.4-5.0) g/dL Globulin (2.3-3.5) g/dL Albumin/Globulin Ratio (1.2-2.2) Urine Color Urine Appearance Urine pH (4.5-8.0) Ur Specific [place] (1.008-1.030) Urine Protein (NEGATIVE) mg/dL Urine Glucose (UA) (NEGATIVE) mg/dL Urine Ketones (NEGATIVE) mg/dL Urine Occult Blood (NEGATIVE) Urine Nitrite (NEGATIVE) Urine Bilirubin (NEGATIVE) Urine Urobilinogen (NORMAL) mg/dL Ur Leukocyte Esterase (NEGATIVE) Urine RBC (0-5) Urine WBC (0-5) Ur Epithelial Cells Amorphous Sediment Urine Bacteria Urine Mucus Urine Opiates Screen (NEGATIVE) Ur Oxycodone Screen (NEGATIVE) Urine Methadone Screen (NEGATIVE) Ur Propoxyphene Screen (NEGATIVE) Ur Barbiturates Screen (NEGATIVE) Ur Tricyclics Screen (NEGATIVE) Ur Phencyclidine Scrn (NEGATIVE) Ur Amphetamine Screen (NEGATIVE) U Methamphetamines Scrn (NEGATIVE) Urine MDMA Screen (NEGATIVE) U Benzodiazepines Scrn (NEGATIVE) U Cocaine Metab Screen (NEGATIVE) U Marijuana (THC) Screen (NEGATIVE) Ketones (NEGATIVE) Med Orders - Current: Current Medications Acetaminophen (Tylenol) 650 mg PO Q4H PRN PRN Reason: Pain (Mild 1-3)/fever Cyclobenzaprine HCl (Flexeril) 10 mg PO TID PRN PRN Reason: muscle pain Last Admin: 08/17/17 04:37 Dose: 10 mg Dextrose/Water (Dextrose 50% In Water) 50 ml IVPUSH ONETIME PRN PRN Reason: Blood Glucose Gabapentin (Neurontin) 800 mg PO QID SHAHBAZ Last Admin: 08/17/17 09:41 Dose: 800 mg Ceftriaxone Sodium 1 gm/ (Sodium Chloride) 50 mls @ 100 mls/hr IV Q24H SHAHBAZ Last Admin: 08/17/17 00:36 Dose: 100 mls/hr Insulin Human Regular 100 unit (/ Sodium Chloride) 101 mls @ 8 mls/hr IV TITRATE [facility]; Protocol Last Titration: 08/17/17 04:43 Dose: 2 units/hr, 2.02 mls/hr Magnesium Sulfate (Magnesium Sulfate 2 Gm In Water 50 Ml) 50 mls @ 25 mls/hr IV ONETIME PRN PRN Reason: low magnesium Last Admin: 08/17/17 01:15 Dose: 25 mls/hr Potassium Chloride 20 meq/ (Premix) 100 mls @ 50 mls/hr IV Q2H PRN PRN Reason: Hypokalemia Last Admin: 08/17/17 00:26 Dose: 50 mls/hr Sodium Chloride (Normal Saline) 2,000 mls @ 500 mls/hr IV .CONTINUOUS PRN PRN Reason: Blood Glucose Last Admin: 08/17/17 08:33 Dose: 250 mls/hr Sodium Phosphate 60 mmole/ (Sodium Chloride) 270 mls @ 62.5 mls/hr IV ONETIME PRN PRN Reason: Low phophorus Insulin Detemir (Levemir) 0 unit SUBCUT BEDTIME SHAHBAZ Last Admin: 08/17/17 00:31 Dose: 45 units Magnesium Hydroxide (Milk Of Magnesia) 30 ml PO Q12H PRN PRN Reason: Constipation Ondansetron HCl (Zofran) 4 mg IV Q4H PRN PRN Reason: Nausea/Vomiting Oxycodone HCl (Oxycodone) 5 mg PO Q4H PRN PRN Reason: Pain (moderate 4-6) Last Admin: 08/17/17 09:11 Dose: 5 mg Polyethylene Glycol (Miralax) 17 gm PO DAILY PRN PRN Reason: Constipation Senna/Docusate Sodium (Senna Plus) 1 tab PO BID PRN PRN Reason: Constipation Sodium Chloride (Saline Flush) 10 ml FLUSH ASDIRECTED PRN PRN Reason: Keep Vein Open Discontinued Medications Hydromorphone HCl (Dilaudid) 1 mg IM ONETIME ONE Stop: 08/16/17 19:20 Last Admin: 08/16/17 19:28 Dose: 1 mg Insulin Human Regular 100 unit (/ Sodium Chloride) 100 mls @ 10.79 mls/hr IV TITRATE [facility]; Protocol Last Admin: 08/16/17 22:13 Dose: 0.14 units/kg/hr, 10.79 mls/hr Sodium Chloride (Normal Saline) 1,000 mls @ 999 mls/hr IV ASDIRECTED [facility] Last Admin: 08/16/17 22:08 Dose: 999 mls/hr Potassium Chloride 20 meq/ (Premix) 100 mls @ 50 mls/hr IV ONETIME ONE Stop: 08/17/17 01:30 Last Admin: 08/17/17 04:22 Dose: 50 mls/hr Potassium Chloride 20 meq/ (Premix) 100 mls @ 50 mls/hr IV Q2H PRN PRN Reason: Hypokalemia Last Admin: 08/17/17 06:25 Dose: 50 mls/hr Sodium Chloride (Saline Flush) 10 ml FLUSH ASDIRECTED PRN PRN Reason: Keep Vein Open Last Admin: 08/16/17 22:09 Dose: 10 ml - Exam General: Alert, Oriented, Cooperative, Mild Distress Lungs: Clear to Auscultation, Normal Respiratory Effort Cardiovascular: Regular Rate, Regular Rhythm, No Murmurs GI/Abdominal Exam: Soft, Non-Tender, No Organomegaly, No Distention Extremities: Non-Tender, No Pedal Edema Skin: Warm, Dry, Intact - Problem List Review Problem List Initiated/Reviewed/Updated: Yes - My Orders Last 24 Hours: My Active Orders 08/16/17 23:00 cefTRIAXone [Rocephin] 1 gm Sodium Chloride 0.9% [Normal Saline] 50 ml IV Q24H 08/16/17 23:03 Resuscitation Status Routine 08/16/17 23:31 Patient Status [ADT] Routine Ambulate [RC] QID Blood Glucose Check, Bedside [RC] Q1H Cardiac Monitoring [RC] Q6H Diabetes Education [RC] Click to Edit Height and Weight [RC] DAILY Intake and Output [RC] QSHIFT Notify Provider Laboratory Res [RC] ASDIRECTED Notify Provider Laboratory Res [RC] ASDIRECTED Notify Provider Laboratory Res [RC] ASDIRECTED Notify Provider Vital Signs [RC] ASDIRECTED Peripheral IV Care [RC] . DIRECTED Up With Assistance [RC] ASDIRECTED Up to Chair [RC] QID Vital Signs [RC] Q2H Acetaminophen [Tylenol] 650 mg PO Q4H PRN Cyclobenzaprine [Flexeril] 10 mg PO TID PRN Dextrose 50% in Water 50 ml IVPUSH ONETIME PRN Docusate Sodium/Sennosides [Senna Plus] 1 tab PO BID PRN Insulin Detemir [Levemir] 0 unit SUBCUT BEDTIME Insulin Regular, Human [NovoLIN R] 100 unit Sodium Chloride 0.9% [Normal Saline] 100 ml IV TITRATE Magnesium Hydroxide [Milk of Magnesia] 30 ml PO Q12H PRN Magnesium Sulfate/Water [Magnesium Sulfate 2 GM in Water 50 ML] 50 ml IV ONETIME Ondansetron [Zofran] 4 mg IV Q4H PRN Polyethylene Glycol 3350 [MiraLAX] 17 gm PO DAILY PRN Potassium Chloride [KCL 20 MEQ in Water 100 ML] 20 meq Premix Bag 1 bag IV Q2H Sodium Chloride 0.9% [Normal Saline] 2,000 ml IV .CONTINUOUS Sodium Chloride 0.9% [Saline Flush] 10 ml FLUSH ASDIRECTED PRN Sodium Phosphate 60 mmole Sodium Chloride 0.9% [Normal Saline] 250 ml IV ONETIME oxyCODONE 5 mg PO Q4H PRN Blood Culture x2 Reflex Set [OM.PC] Stat Medication Continuation Instructions [OM.PC] ASDIRECTED Medication Discontinuation Instructions [OM.PC] ASDIRECTED Peripheral IV Insertion Adult [OM.PC] Routine VTE Pharmacological Contraindications [AST] Per Unit Routine 08/16/17 23:40 CULTURE BLOOD [BC] Stat 08/16/17 23:45 CULTURE BLOOD [BC] Stat 08/16/17 Dinner Consistent Carbohydrate Diet [DIET] 08/17/17 06:00 Gabapentin [Neurontin] 800 mg PO QID 08/17/17 11:31 BASIC METABOLIC PANEL,BMP [CHEM] Q4H MAGNESIUM [CHEM] Q6H PHOSPHORUS [CHEM] Q6H 08/17/17 13:31 POTASSIUM,K [CHEM] Q2H 08/17/17 15:31 BASIC METABOLIC PANEL,BMP [CHEM] Q4H 08/17/17 17:31 MAGNESIUM [CHEM] Q6H PHOSPHORUS [CHEM] Q6H POTASSIUM,K [CHEM] Q2H 08/17/17 19:31 BASIC METABOLIC PANEL,BMP [CHEM] Q4H 08/17/17 21:31 POTASSIUM,K [CHEM] Q2H 08/18/17 05:00 BASIC METABOLIC PANEL,BMP [CHEM] Timed - Plan Plan:: ASSESSMENT AND PLAN DIABETIC KETOACIDOSIS-history of type 2 diabetes mellitus, more likely that she does have type 1 diabetes. Improved ketoacidosis but not totally resolved -IV insulin and fluids per ketoacidosis protocol -Closely monitor electrolytes per protocol -Resume long-acting insulin tonight -Resume short acting insulin when stable URINARY TRACT INFECTION-likely causing exacerbation of ketoacidosis -Urine and blood cultures pending -Rocephin 1 g IV every 24 hours MAINTENANCE ISSUES -DVT prophylaxis; not indicated -GI prophylaxis; not indicated -Pandey catheter; not indicated -Nutrition; consistent carb diet -Nicotine dependence; not required CODE STATUS-FULL CODE ADMISSION STATUS-patient will be admitted to inpatient status, expect at least a 2 night hospital stay for evaluation and management of problems as outlined above. At the time of this admission I do not reasonably expected evaluation and management of this problem will require more than a 96 hour hospital stay. DISPOSITION-anticipate discharge to home after the hospital stay. PRIMARY CARE PROVIDER-
[2017-08-17] MEDS ORDERED: Glucose Gel 15 GM in 37.5 GM Tube PO PRN (15:53)
[2017-08-17] MEDS ORDERED: 50% Dextrose in Water 50 ML Syringe IV PRN (15:53)
[2017-08-17] MEDS ORDERED: Potassium Chloride 20 MEQ Tab.ER PO ONE (16:30)
[2017-08-17] MEDS: Insulin Aspart 100 Units/ML 3 ML Pen SUBCUT SCH ×3 (17:09→21:12)
[2017-08-17] MEDS ORDERED: Insulin Detemir 100 Units/ML 3 ML Pen SUBCUT SCH (21:00)
[2017-08-17] MEDS: Acetaminophen 325 MG Tab PO PRN (21:12)
[2017-08-18] MEDS: oxyCODONE 5 MG Tab PO PRN ×6 (01:47→22:23)
[2017-08-18] MEDS: Acetaminophen 325 MG Tab PO PRN ×4 (01:47→18:07)
[2017-08-18] MEDS: Gabapentin 400 MG Cap PO SCH ×4 (05:52→21:31)
[2017-08-18] MEDS: Insulin Aspart 100 Units/ML 3 ML Pen SUBCUT SCH ×7 (07:31→21:32)
[2017-08-18] MEDS ORDERED: Potassium Chloride 20 MEQ Tab.ER PO ONE (09:00)
[2017-08-18] MEDS: Metoprolol Tartrate 25 MG Tab PO SCH ×2 (10:03→21:31)
[2017-08-18] MEDS: Cyclobenzaprine 10 MG Tab PO PRN ×2 (10:03→22:27)
--- NOTE | 2017-08-18 10:05 | PCM.CONS ---
H&P History of Present Illness - General Admit Problem/Dx: Admission Diagnosis/Problem Admission Diagnosis/Problem Diabetic ketoacidosis Source of Information: Patient, Provider History Limitations: Reports: No Limitations - History of Present Illness Onset of Symptoms: Reports: Sudden Duration of Symptoms: Reports: Day(s): Location: Reports: Upper Extremity, Right, Lower Extremity, Left Quality: Reports: Burning, Dull, Pressure Severity: Severe Improves with: Reports: None Worsens with: Reports: Movement shoulder, knees Pain Score (Numeric/FACES): 2 - Related Data Allergies/Adverse Reactions: Allergies Allergy/AdvReac Type Severity Reaction Status Date / Time amoxicillin Allergy Rash Verified 08/16/17 19:01 erythromycin base Allergy Rash Verified 08/16/17 19:01 Penicillins Allergy Rash Verified 08/16/17 19:01 Sulfa (Sulfonamide Allergy Rash Verified 08/16/17 19:01 Antibiotics) Home Medications: Home Meds Gabapentin [Neurontin] 800 mg PO QID 02/28/15 [History] Insulin Aspart [NovoLOG] 15 - 20 units SUBCUT TID 09/12/16 [History] Insulin Detemir [Levemir Flextouch] 45 unit SQ BEDTIME #100 ml 05/20/17 [Rx] Cyclobenzaprine [Flexeril] 10 mg PO TID PRN 08/16/17 [History] Past Medical History HEENT History: Reports: Allergic Rhinitis, Other (See Below) Other HEENT History: cracked ear drum Gastrointestinal History: Reports: Cholelithiasis Genitourinary History: Reports: Pyelonephritis, Renal Calculus, UTI, Recurrent Other Genitourinary History: recent renal calculus dx [employer] History: Reports: , 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 - Past Surgical History GI Surgical History: Reports: Cholecystectomy Musculoskeletal Surgical History: Reports: Other (See Below) Other Musculoskeletal Surgeries/Procedures:: right ankle surgery Dermatological Surgical History: Reports: Other (See Below) Social & Family History - Family History Family Medical History: Noncontributory Endocrine/Metabolic: Reports: Diabetes, type II - Tobacco Use Smoking Status *Q: Current Every Day Smoker Years of Tobacco use: 18 Packs/Tins Daily: 0.2 - Caffeine Use Caffeine Use: Reports: Soda - Recreational Drug Use Recreational Drug Use: Yes Recreational Drug Type: Reports: Marijuana/Hashish Recreational Drug Use Frequency: Socially H&P Review of Systems - Review of Systems: Review Of Systems: See Below General: Reports: Malaise HEENT: Reports: No Symptoms Pulmonary: Reports: No Symptoms Cardiovascular: Reports: No Symptoms Gastrointestinal: Reports: No Symptoms Genitourinary: Reports: No Symptoms Musculoskeletal: Reports: Shoulder Pain, Joint Pain Skin: Reports: No Symptoms Psychiatric: Reports: No Symptoms Neurological: Reports: No Symptoms Hematologic/Lymphatic: Reports: No Symptoms Immunologic: Reports: No Symptoms Exam - Exam Exam: See Below - Vital Signs Vital Signs: Last Vital Signs Temp 98.3 F 08/18/17 07:27 Pulse 108 H 08/18/17 07:27 Resp 23 H 08/18/17 07:27 BP 112/70 08/18/17 07:27 Pulse Ox 96 08/18/17 07:27 Weight: 174 lb 3.207 oz - Exam General: Alert, Oriented HEENT: PERRLA, Conjunctiva Clear, EACs Clear, EOMI, Hearing Intact, Mucosa Moist & [place] Neck: Supple, Trachea Midline Extremities: No Pedal Edema, Normal Capillary Refill, Joint Swelling, Arm Pain, Leg Pain, Limited Range of Motion, Increased Warmth Peripheral Pulses: 2+: Radial (R), Dorsalis Pedis (L) Skin: Warm, Dry, Intact Psychiatric: Alert, Normal Affect, Normal Mood - Patient Data Lab Results Last 24 hrs: Laboratory Results - last 24 hr 08/17/17 08/17/17 08/17/17 Range/Units 11:26 13:40 15:18 WBC (4.5-11.0) K/uL RBC (3.30-5.50) M/uL Hgb (12.0-15.0) g/dL Hct (36.0-48.0) % MCV (80-98) fL MCH (27-31) pg MCHC (32-36) % Plt Count (150-400) K/uL Neut % (Auto) (36-66) % Lymph % (Auto) (24-44) % [place] % (Auto) (2-6) % Eos % (Auto) (2-4) % Baso % (Auto) (0-1) % Sodium 133 L 134 L (140-148) mmol/L Potassium 3.8 3.7 3.6 (3.6-5.2) mmol/L Chloride 102 102 (100-108) mmol/L Carbon Dioxide 19 L 22 (21-32) mmol/L Anion Gap 15.8 H 13.6 (5.0-14.0) mmol/L BUN 8 7 (7-18) mg/dL Creatinine 0.5 L 0.5 L (0.6-1.0) mg/dL Est Cr Clr Drug Dosing 145.61 146.41 mL/min Estimated GFR (MDRD) > 60 > 60 (>60) Glucose 223 H 221 H (74-106) mg/dL Uric Acid (2.6-6.2) mg/dL Calcium 7.1 L 7.5 L (8.5-10.1) mg/dL Phosphorus 1.5 L (2.5-4.9) mg/dL Magnesium 1.8 (1.8-2.4) mg/dL 08/18/17 08/18/17 08/18/17 Range/Units 06:02 06:02 09:33 WBC 11.1 H (4.5-11.0) K/uL RBC 4.50 (3.30-5.50) M/uL Hgb 13.0 (12.0-15.0) g/dL Hct 38.1 (36.0-48.0) % MCV 85 (80-98) fL MCH 29 (27-31) pg MCHC 34 (32-36) % Plt Count 294 (150-400) K/uL Neut % (Auto) 70 H (36-66) % Lymph % (Auto) 18 L (24-44) % [place] % (Auto) 10 H (2-6) % Eos % (Auto) 2 (2-4) % Baso % (Auto) 0 (0-1) % Sodium 135 L (140-148) mmol/L Potassium 3.5 L (3.6-5.2) mmol/L Chloride 103 (100-108) mmol/L Carbon Dioxide 22 (21-32) mmol/L Anion Gap 13.5 (5.0-14.0) mmol/L BUN 4 L (7-18) mg/dL Creatinine 0.6 (0.6-1.0) mg/dL Est Cr Clr Drug Dosing 122.01 mL/min Estimated GFR (MDRD) > 60 (>60) Glucose 319 H (74-106) mg/dL Uric Acid 2.2 L (2.6-6.2) mg/dL Calcium 8.1 L (8.5-10.1) mg/dL Phosphorus (2.5-4.9) mg/dL Magnesium (1.8-2.4) mg/dL Result Diagrams: 08/18/17 06:02 08/18/17 06:02 Romy Results Last 24 hrs: Microbiology 08/16/17 20:30 Urine Culture - Preliminary Urine, Clean Catch MIXED POSITIVE CRISTIAN DAY 1 08/16/17 23:45 Aerobic Blood Culture - Preliminary Blood - Arm, Right NO GROWTH AFTER 1 DAY Anaerobic Blood Culture - Preliminary NO GROWTH AFTER 1 DAY 08/16/17 23:40 Aerobic Blood Culture - Preliminary Blood - Arm, Right NO GROWTH AFTER 1 DAY Anaerobic Blood Culture - Preliminary NO GROWTH AFTER 1 DAY Consult PN Assessment/Plan POD#: 0 Procedures: Procedures ASSAY OF LACTIC ACID (08/14/17) ASSAY OF LIPASE (01/18/17) C-REACTIVE PROTEIN (08/14/17) CHEST X-RAY 1 VIEW FRONTAL (04/25/15) CHORIONIC GONADOTROPIN TEST (04/03/16) COMPLETE CBC W/AUTO DIFF WBC (08/14/17) COMPREHEN METABOLIC PANEL (08/14/17) CT ABD & PELV W/CONTRAST (01/18/17) CULTURE SCREEN ONLY (01/12/16) DRAINAGE OF SKIN ABSCESS (07/21/16) EMERGENCY DEPT VISIT (08/14/17) EMERGENCY DEPT VISIT (02/10/17) EMERGENCY DEPT VISIT (01/18/17) EMERGENCY DEPT VISIT (11/05/16) EMERGENCY DEPT VISIT (09/12/16) EMERGENCY DEPT VISIT (07/21/16) EMERGENCY DEPT VISIT (04/03/16) EMERGENCY DEPT VISIT (03/31/16) EMERGENCY DEPT VISIT (11/27/15) EMERGENCY DEPT VISIT (11/16/15) EMERGENCY DEPT VISIT (04/25/15) GLUCOSE BLOOD TEST (01/18/17) HYDRATE IV INFUSION ADD-ON (01/18/17) MICROBE SUSCEPTIBLE ROMY (01/18/17) OB US < 14 WKS SINGLE FETUS (04/03/16) ROUTINE VENIPUNCTURE (08/14/17) STREP A AG IA (01/12/16) THER/PROPH/DIAG INJ IV PUSH (01/18/17) THER/PROPH/DIAG INJ SC/IM (08/14/17) URINALYSIS AUTO W/SCOPE (01/18/17) URINE BACTERIA CULTURE (01/18/17) URINE CULTURE/COLONY COUNT (01/18/17) URINE TEST (01/18/17) X-RAY EXAM L-2 SPINE 4/>VWS (04/25/15) X-RAY EXAM OF FINGER(S) (11/27/15) X-RAY EXAM OF PELVIS (04/25/15) X-RAY EXAM OF SHOULDER (08/14/17) X-RAY EXAM SERIES ABDOMEN (01/18/17) (1) Left knee pain SNOMED Code(s): 98227000 Code(s): M25.562 - PAIN IN LEFT KNEE Current Visit: Yes Qualifiers: Chronicity: acute Qualified Code(s): M25.562 - Pain in left knee (2) Right shoulder pain SNOMED Code(s): 71178179, 44562682 Code(s): M25.511 - PAIN IN RIGHT SHOULDER Current Visit: Yes Qualifiers: Chronicity: acute Qualified Code(s): M25.511 - Pain in right shoulder Problem List Initiated/Reviewed/Updated: Yes My Orders Last 24 Hours: My Active Orders 08/18/17 09:53 CULTURE BODY FLUID + SMEAR [RM] Routine 08/18/17 09:56 CELL COUNT,BODY FLUID [BF] Routine CULTURE ANAEROBIC [RM] Routine CULTURE BODY FLUID + SMEAR [RM] Routine LACTATE DEHYDROGENASE,BODY FL [BF] Routine PROTEIN,BODY FLUID [BF] Routine URIC ACID,BODY FLUID [BF] Routine 08/18/17 09:57 Knee 3V Lt [CR] Routine Shoulder 1V Rt [CR] Routine Plan: Dr. bishop asked me to the patient this morning. She is a pleasant 37-year- old female. A few days ago she was with her nephew diving [place] the [place] [address] [place]. She doesn't recall anything traumatic happy. She was recently hospitalized in the intensive care unit for diabetic ketoacidosis. Her blood sugars are over 300 at this time. Her hemoglobin A1c is over 12. I was asked to see her because she has been having increasing knee pain and swelling. She also has right shoulder pain. She had a 3 out of 3 effusion present on her left knee and pain with any range of motion. There is tenderness to palpation. There is tenderness in the right shoulder as well. There is tenderness in the bicipital groove, anterior shoulder , lateral shoulder, and posterior shoulder. She is unable to abductor forward flex beyond 90. I performed an aspiration of the left knee. I was able to remove over 60 mL of yellow serous fluid. This will be sent for cultures as well as synovial fluid analysis. I performed an aspiration of the right shoulder. No fluid was present. Plan: We will wait for results from the cultures as well as synovial fluid analysis. I've also asked to obtain films of the left knee and right shoulder. Requesting Provider: naun bishop Date Consult Requested: 08/18/17 Patient History Reviewed: Yes Admission H&P Reviewed: Yes Notified Requestor: Yes
--- NOTE | 2017-08-18 11:14 | PCM.SN ---
- Free Text/Narrative Note: No organisms seen on smear. fluid is being sent for analysis due to thickness. xr of left knee shows old fibular shaft fracture, no other abnormalities. xr r shoulder normal. will await lab study results on synovial fluid.
[2017-08-18] MEDS ORDERED: Insulin Aspart 100 Units/ML 3 ML Pen SUBCUT ONE ×2 (11:32→16:42)
--- NOTE | 2017-08-18 11:39 | CR ---
Left knee There is early medial compartment joint space loss. There is no evidence for acute fracture or joint effusion. There is a chronic healed fracture of the proximal diaphysis of the fibula. Impression: 1. Old fracture the fibula. 2. Early degenerative findings.
--- NOTE | 2017-08-18 11:40 | CR ---
Right shoulder Comparison: 3 days prior. There is no interval change in alignment. There is no evidence for fracture. The soft tissues are unr emarkable. Impression: 1. No acute findings.
--- NOTE | 2017-08-18 13:08 | PCM.PN ---
- General Info Date of Service: 08/18/17 Subjective Update: This patient has continued to experience right shoulder and left knee pain, other than diving off of the water platform the other day denies any precipitating injury. Diabetic ketoacidosis has resolved, blood sugars have remained elevated, despite current insulins regimen. Functional Status: Reports: Tolerating Diet, Urinating. Denies: Ambulating - Review of Systems General: Denies: Fever, Chills Pulmonary: Reports: No Symptoms Cardiovascular: Reports: No Symptoms Gastrointestinal: Reports: No Symptoms Musculoskeletal: Reports: Shoulder Pain, Joint Pain (Left knee), Joint Swelling - Patient Data Vitals - Most Recent: Last Vital Signs Temp 97.6 F 08/18/17 12:00 Pulse 94 08/18/17 12:00 Resp 13 08/18/17 12:00 BP 117/78 08/18/17 12:00 Pulse Ox 98 08/18/17 12:00 Weight - Most Recent: 174 lb 3.207 oz I&O - Last 24 Hours: Intake & Output 08/17/17 08/18/17 08/18/17 22:59 06:59 14:59 Intake Total 4074 780 Output Total 2200 1500 900 Balance 1874 -720 -900 Lab Results Last 24 Hours: Laboratory Results - last 24 hr 08/17/17 08/17/17 08/18/17 Range/Units 13:40 15:18 06:02 WBC (4.5-11.0) K/uL RBC (3.30-5.50) M/uL Hgb (12.0-15.0) g/dL Hct (36.0-48.0) % MCV (80-98) fL MCH (27-31) pg MCHC (32-36) % Plt Count (150-400) K/uL Neut % (Auto) (36-66) % Lymph % (Auto) (24-44) % [place] % (Auto) (2-6) % Eos % (Auto) (2-4) % Baso % (Auto) (0-1) % Sodium 134 L 135 L (140-148) mmol/L Potassium 3.7 3.6 3.5 L (3.6-5.2) mmol/L Chloride 102 103 (100-108) mmol/L Carbon Dioxide 22 22 (21-32) mmol/L Anion Gap 13.6 13.5 (5.0-14.0) mmol/L BUN 7 4 L (7-18) mg/dL Creatinine 0.5 L 0.6 (0.6-1.0) mg/dL Est Cr Clr Drug Dosing 146.41 122.01 mL/min Estimated GFR (MDRD) > 60 > 60 (>60) Glucose 221 H 319 H (74-106) mg/dL Uric Acid (2.6-6.2) mg/dL Calcium 7.5 L 8.1 L (8.5-10.1) mg/dL Fluid Type Fluid WBC /ul Fluid RBC /ul Fluid Diff Comment Fluid Mononuclear Cell % Fl Polymorphonucl Cell % 08/18/17 08/18/17 08/18/17 Range/Units 06:02 09:33 10:18 WBC 11.1 H (4.5-11.0) K/uL RBC 4.50 (3.30-5.50) M/uL Hgb 13.0 (12.0-15.0) g/dL Hct 38.1 (36.0-48.0) % MCV 85 (80-98) fL MCH 29 (27-31) pg MCHC 34 (32-36) % Plt Count 294 (150-400) K/uL Neut % (Auto) 70 H (36-66) % Lymph % (Auto) 18 L (24-44) % [place] % (Auto) 10 H (2-6) % Eos % (Auto) 2 (2-4) % Baso % (Auto) 0 (0-1) % Sodium (140-148) mmol/L Potassium (3.6-5.2) mmol/L Chloride (100-108) mmol/L Carbon Dioxide (21-32) mmol/L Anion Gap (5.0-14.0) mmol/L BUN (7-18) mg/dL Creatinine (0.6-1.0) mg/dL Est Cr Clr Drug Dosing mL/min Estimated GFR (MDRD) (>60) Glucose (74-106) mg/dL Uric Acid 2.2 L (2.6-6.2) mg/dL Calcium (8.5-10.1) mg/dL Fluid Type Synovial fluid Fluid WBC 71969 /ul Fluid RBC 900 /ul Fluid Diff Comment Fluid Mononuclear Cell 19 % Fl Polymorphonucl Cell 81 % Uli Results Last 24 Hours: Microbiology 08/18/17 10:18 Gram Stain - Final Joint / Synovial Fluid - Knee, Left 08/16/17 20:30 Urine Culture - Preliminary Urine, Clean Catch MIXED POSITIVE JOVITA DAY 1 08/16/17 23:45 Aerobic Blood Culture - Preliminary Blood - Arm, Right NO GROWTH AFTER 1 DAY Anaerobic Blood Culture - Preliminary NO GROWTH AFTER 1 DAY 08/16/17 23:40 Aerobic Blood Culture - Preliminary Blood - Arm, Right NO GROWTH AFTER 1 DAY Anaerobic Blood Culture - Preliminary NO GROWTH AFTER 1 DAY Med Orders - Current: Current Medications Acetaminophen (Tylenol) 650 mg PO Q4H PRN PRN Reason: Pain (Mild 1-3)/fever Last Admin: 08/18/17 10:10 Dose: 650 mg Cyclobenzaprine HCl (Flexeril) 10 mg PO TID PRN PRN Reason: muscle pain Last Admin: 08/18/17 10:03 Dose: 10 mg Dextrose (Glutose 15) 15 gm PO ASDIRECTED PRN PRN Reason: Hypoglycemia Dextrose/Water (Dextrose 50% In Water) 50 ml IV ASDIRECTED PRN PRN Reason: Hypoglycemia Gabapentin (Neurontin) 800 mg PO QID [facility] Last Admin: 08/18/17 10:04 Dose: 800 mg Ceftriaxone Sodium 1 gm/ (Sodium Chloride) 50 mls @ 100 mls/hr IV Q24H [facility] Last Admin: 08/17/17 22:41 Dose: 100 mls/hr Insulin Aspart (Novolog) 0 unit SUBCUT QIDACANDBED [facility]; Protocol Last Admin: 08/18/17 07:33 Dose: 8 unit Insulin Aspart (Novolog) 20 unit SUBCUT TIDMEALS [facility] Insulin Detemir (Levemir) 60 unit SUBCUT BEDTIME [facility] Magnesium Hydroxide (Milk Of Magnesia) 30 ml PO Q12H PRN PRN Reason: Constipation Metoprolol Tartrate (Lopressor) 25 mg PO BID [facility] Last Admin: 08/18/17 10:03 Dose: 25 mg Ondansetron HCl (Zofran) 4 mg IV Q4H PRN PRN Reason: Nausea/Vomiting Oxycodone HCl (Oxycodone) 10 mg PO Q4H PRN PRN Reason: Pain (moderate 4-6) Polyethylene Glycol (Miralax) 17 gm PO DAILY PRN PRN Reason: Constipation Senna/Docusate Sodium (Senna Plus) 1 tab PO BID PRN PRN Reason: Constipation Sodium Chloride (Saline Flush) 10 ml FLUSH ASDIRECTED PRN PRN Reason: Keep Vein Open Discontinued Medications Dextrose/Water (Dextrose 50% In Water) 50 ml IVPUSH ONETIME PRN PRN Reason: Blood Glucose Hydromorphone HCl (Dilaudid) 1 mg IM ONETIME ONE Stop: 08/16/17 19:20 Last Admin: 08/16/17 19:28 Dose: 1 mg Insulin Human Regular 100 unit (/ Sodium Chloride) 100 mls @ 10.79 mls/hr IV TITRATE [facility]; Protocol Last Admin: 08/16/17 22:13 Dose: 0.14 units/kg/hr, 10.79 mls/hr Sodium Chloride (Normal Saline) 1,000 mls @ 999 mls/hr IV ASDIRECTED [facility] Last Admin: 08/16/17 22:08 Dose: 999 mls/hr Insulin Human Regular 100 unit (/ Sodium Chloride) 101 mls @ 8 mls/hr IV TITRATE [facility]; Protocol Last Titration: 08/17/17 04:43 Dose: 2 units/hr, 2.02 mls/hr Magnesium Sulfate (Magnesium Sulfate 2 Gm In Water 50 Ml) 50 mls @ 25 mls/hr IV ONETIME PRN PRN Reason: low magnesium Last Admin: 08/17/17 01:15 Dose: 25 mls/hr Potassium Chloride 20 meq/ (Premix) 100 mls @ 50 mls/hr IV ONETIME ONE Stop: 08/17/17 01:30 Last Admin: 08/17/17 04:22 Dose: 50 mls/hr Potassium Chloride 20 meq/ (Premix) 100 mls @ 50 mls/hr IV Q2H PRN PRN Reason: Hypokalemia Last Admin: 08/17/17 06:25 Dose: 50 mls/hr Potassium Chloride 20 meq/ (Premix) 100 mls @ 50 mls/hr IV Q2H PRN PRN Reason: Hypokalemia Last Admin: 08/17/17 00:26 Dose: 50 mls/hr Sodium Chloride (Normal Saline) 2,000 mls @ 500 mls/hr IV .CONTINUOUS PRN PRN Reason: Blood Glucose Last Admin: 08/17/17 12:18 Dose: 150 mls/hr Sodium Phosphate 60 mmole/ (Sodium Chloride) 270 mls @ 62.5 mls/hr IV ONETIME PRN PRN Reason: Low phophorus Insulin Aspart (Novolog) 15 unit SUBCUT TIDMEALS [facility] Last Admin: 08/18/17 11:41 Dose: 15 unit Insulin Aspart (Novolog) 12 unit SUBCUT ONETIME ONE Stop: 08/18/17 11:33 Last Admin: 08/18/17 11:47 Dose: 12 units Insulin Detemir (Levemir) 0 unit SUBCUT BEDTIME [facility] Last Admin: 08/17/17 00:31 Dose: 45 units Insulin Detemir (Levemir) 45 unit SUBCUT BEDTIME [facility] Last Admin: 08/17/17 21:10 Dose: 45 units Oxycodone HCl (Oxycodone) 5 mg PO Q4H PRN PRN Reason: Pain (moderate 4-6) Last Admin: 08/18/17 10:03 Dose: 5 mg Potassium Chloride (Klor-Con M20) 40 meq PO ONETIME ONE Stop: 08/17/17 16:31 Last Admin: 08/17/17 16:16 Dose: 40 meq Potassium Chloride (Klor-Con M20) 40 meq PO ONETIME ONE Stop: 08/18/17 09:01 Last Admin: 08/18/17 10:04 Dose: 40 meq Sodium Chloride (Saline Flush) 10 ml FLUSH ASDIRECTED PRN PRN Reason: Keep Vein Open Last Admin: 08/16/17 22:09 Dose: 10 ml - Exam General: Alert, Oriented, Cooperative, Moderate Distress Lungs: Clear to Auscultation, Normal Respiratory Effort Cardiovascular: Regular Rate, Regular Rhythm, No Murmurs GI/Abdominal Exam: Soft, Non-Tender, No Organomegaly, No Distention Extremities: Joint Swelling (Left knee with obvious large joint effusion), Increased Warmth, Other (Pain with movement of the right shoulder) - Problem List Review Problem List Initiated/Reviewed/Updated: Yes - My Orders Last 24 Hours: My Active Orders 08/17/17 15:53 Blood Glucose Check, Bedside [RC] QIDACANDBED Communication Order [RC] STAT Notify Provider [RC] PRN Dextrose 50% in Water 50 ml IV ASDIRECTED PRN Dextrose [Glutose 15] 15 gm PO ASDIRECTED PRN Convert IV to Saline Lock [OM.PC] Routine 08/17/17 17:00 Insulin Aspart [NovoLOG] See Protocol SUBCUT QIDACANDBED 08/18/17 09:33 Consult to Physician [CONS] Routine URIC ACID [CHEM] Stat 08/18/17 09:34 Notify Provider Consults [RC] ASDIRECTED 08/18/17 09:45 Metoprolol Tartrate [Lopressor] 25 mg PO BID 08/18/17 12:27 Patient Status [ADT] Routine 08/18/17 12:49 oxyCODONE 10 mg PO Q4H PRN 08/18/17 12:55 NATHEN W/RFX TO ALL IF POSITIVE Urgent CRP [C-REACTIVE PROTEIN] [CHEM] Routine SEDIMENTATION RATE MANUAL [HEME] Routine 08/18/17 17:00 Insulin Aspart [NovoLOG] 20 unit SUBCUT TIDMEALS 08/18/17 21:00 Insulin Detemir [Levemir] 60 unit SUBCUT BEDTIME 08/19/17 05:00 BASIC METABOLIC PANEL,BMP [CHEM] Timed CBC WITH AUTO DIFF [HEME] Timed 08/19/17 07:30 GLUCOSE POC LAB TO COLLECT [POC] QIDACANDBED 08/19/17 11:30 GLUCOSE POC LAB TO COLLECT [POC] QIDACANDBED 08/19/17 16:30 GLUCOSE POC LAB TO COLLECT [POC] QIDACANDBED 08/19/17 21:00 GLUCOSE POC LAB TO COLLECT [POC] QIDACANDBED 08/19/17 Breakfast NPO After Midnight [Nothing per Oral After Midnight Diet] [DIET] 08/20/17 07:30 GLUCOSE POC LAB TO COLLECT [POC] QIDACANDBED 08/20/17 11:30 GLUCOSE POC LAB TO COLLECT [POC] QIDACANDBED 08/20/17 16:30 GLUCOSE POC LAB TO COLLECT [POC] QIDACANDBED 08/20/17 21:00 GLUCOSE POC LAB TO COLLECT [POC] QIDACANDBED 08/21/17 07:30 GLUCOSE POC LAB TO COLLECT [POC] QIDACANDBED 08/21/17 11:30 GLUCOSE POC LAB TO COLLECT [POC] QIDACANDBED 08/21/17 16:30 GLUCOSE POC LAB TO COLLECT [POC] QIDACANDBED 08/21/17 21:00 GLUCOSE POC LAB TO COLLECT [POC] QIDACANDBED 08/22/17 07:30 GLUCOSE POC LAB TO COLLECT [POC] QIDACANDBED 08/22/17 11:30 GLUCOSE POC LAB TO COLLECT [POC] QIDACANDBED - Plan Plan:: ASSESSMENT AND PLAN DIABETIC KETOACIDOSIS-history of type 2 diabetes mellitus, more likely that she does have type 1 diabetes. Improved ketoacidosis but not totally resolved -IV insulin and fluids per ketoacidosis protocol -Closely monitor electrolytes per protocol -Resume long-acting insulin tonight -Resume short acting insulin when stable JOINT PAIN-significant effusion involving the left knee, marked pain on movement. Also significant pain with movement of the right shoulder. X-rays obtained show no obvious fracture. Orthopedic consult obtained this morning and the left knee was aspirated by Dr. Umana. Initial fluid analysis shows negative Gram stain, white blood cell count of 41,000. Serum uric acid level was obtained and is within normal range. -Orthopedic follow-up by Dr. Umana -Synovial fluid analysis pending including culture -Further laboratory studies including CRP, sedimentation rate, Lyme serology, NATHEN, and rheumatoid factor URINARY TRACT blood cultures remain negative, urine culture growing only mixed jovita -Rocephin 1 g IV every 24 hours MAINTENANCE ISSUES -DVT prophylaxis; not indicated -GI prophylaxis; not indicated -Pandey catheter; not indicated -Nutrition; consistent carb diet -Nicotine dependence; not required CODE STATUS-FULL CODE ADMISSION STATUS-patient will be admitted to inpatient status, expect at least a 2 night hospital stay for evaluation and management of problems as outlined above. At the time of this admission I do not reasonably expected evaluation and management of this problem will require more than a 96 hour hospital stay. DISPOSITION-anticipate discharge to home after the hospital stay. PRIMARY CARE PROVIDER-
--- NOTE | 2017-08-18 18:09 | PCM.SN ---
- Free Text/Narrative Note: Pt still in pain but appears better. Less tender to palpation. ROM appears better as pt is sitting up in bed with knee flexed to 60 degrees. Less warm than earlier today. Will evaluate in AM. I have discussed with Dr. Henning will watch and wait at this point. It would be preferable to not perform an irrigation via arthroscopy until blood glucose levels better controlled. No organisms seen. Will await cultures.
[2017-08-18] MEDS: Insulin Detemir 100 Units/ML 3 ML Pen SUBCUT SCH (21:33)
[2017-08-18] MEDS: cefTRIAXone 1 GM in Sodium Chloride 0.9% 50 ML IV SCH (22:22)
[2017-08-19] MEDS: oxyCODONE 5 MG Tab PO PRN ×5 (02:47→21:11)
[2017-08-19] MEDS: Gabapentin 400 MG Cap PO SCH ×4 (05:02→22:31)
[2017-08-19] MEDS: Acetaminophen 325 MG Tab PO PRN ×2 (07:32→13:40)
[2017-08-19] MEDS ORDERED: Propofol 200 MG/20 ML SDV ONE (09:00)
[2017-08-19] MEDS ORDERED: Neostigmine Methylsulfate 1 MG/ML 5 ML Syringe ONE (09:00)
[2017-08-19] MEDS ORDERED: Glycopyrrolate 0.2 MG/ML 5 ML MDV ONE (09:00)
[2017-08-19] MEDS ORDERED: Ondansetron 4 MG/2 ML SDV ONE (09:00)
[2017-08-19] MEDS ORDERED: Potassium Chloride 20 MEQ Tab.ER PO ONE (09:00)
[2017-08-19] MEDS ORDERED: Rocuronium 50 MG/5 ML Vial ONE (09:00)
[2017-08-19] MEDS ORDERED: Dexamethasone 4 MG/ML SDV ONE (09:00)
[2017-08-19] MEDS ORDERED: fentaNYL 250 MCG/5 ML SDV ONE (09:01)
[2017-08-19] MEDS: Metoprolol Tartrate 25 MG Tab PO SCH ×2 (09:09→21:12)
[2017-08-19] MEDS: Insulin Aspart 100 Units/ML 3 ML Pen SUBCUT SCH ×7 (09:11→21:28)
--- NOTE | 2017-08-19 10:02 | PCM.PN ---
- General Info Date of Service: 08/19/17 Subjective Update: Ms. Rodriguez has felt modestly improved over the past 24 hours, persistent swelling in the left knee but she has been able to ambulate with use of a walker. Blood glucose levels have come under better control. She continues to have pain with movement of her right shoulder as well. No evidence of infection from aspirate of the left knee. She has been seen for follow-up by Dr. Umana with current plan for arthroscopic surgery of the knee later today. Functional Status: Reports: Pain Controlled, Tolerating Diet, Ambulating, Urinating - Review of Systems General: Denies: Fever, Chills Pulmonary: Reports: No Symptoms Cardiovascular: Reports: No Symptoms Gastrointestinal: Reports: No Symptoms Musculoskeletal: Reports: Shoulder Pain (Right), Joint Pain (Left knee), Joint Swelling Skin: Reports: No Symptoms - Patient Data Vitals - Most Recent: Last Vital Signs Temp 98.7 F 08/19/17 08:02 Pulse 114 H 08/19/17 09:09 Resp 14 08/19/17 07:24 BP 108/93 H 08/19/17 09:09 Pulse Ox 95 08/19/17 07:24 Weight - Most Recent: 174 lb 3.207 oz I&O - Last 24 Hours: Intake & Output 08/18/17 08/19/17 08/19/17 22:59 06:59 14:59 Intake Total 640 Balance 640 Lab Results Last 24 Hours: Laboratory Results - last 24 hr 08/18/17 08/18/17 08/18/17 Range/Units 10:18 12:55 12:55 WBC (4.5-11.0) K/uL RBC (3.30-5.50) M/uL Hgb (12.0-15.0) g/dL Hct (36.0-48.0) % MCV (80-98) fL MCH (27-31) pg MCHC (32-36) % Plt Count (150-400) K/uL Neut % (Auto) (36-66) % Lymph % (Auto) (24-44) % [place] % (Auto) (2-6) % Eos % (Auto) (2-4) % Baso % (Auto) (0-1) % ESR 80 H (0-25) mm/hr Sodium (140-148) mmol/L Potassium (3.6-5.2) mmol/L Chloride (100-108) mmol/L Carbon Dioxide (21-32) mmol/L Anion Gap (5.0-14.0) mmol/L BUN (7-18) mg/dL Creatinine (0.6-1.0) mg/dL Est Cr Clr Drug Dosing mL/min Estimated GFR (MDRD) (>60) Glucose (74-106) mg/dL Calcium (8.5-10.1) mg/dL C-Reactive Protein 13.64 H (0.0-0.3) mg/dL Fluid Type Synovial fluid Fluid WBC 42709 /ul Fluid RBC 900 /ul Fluid Diff Comment Fluid Mononuclear Cell 19 % Fl Polymorphonucl Cell 81 % 08/19/17 08/19/17 Range/Units 05:00 05:00 WBC 10.0 (4.5-11.0) K/uL RBC 4.19 (3.30-5.50) M/uL Hgb 11.9 L (12.0-15.0) g/dL Hct 35.7 L (36.0-48.0) % MCV 85 (80-98) fL MCH 28 (27-31) pg MCHC 33 (32-36) % Plt Count 326 (150-400) K/uL Neut % (Auto) 67 H (36-66) % Lymph % (Auto) 22 L (24-44) % [place] % (Auto) 9 H (2-6) % Eos % (Auto) 3 (2-4) % Baso % (Auto) 0 (0-1) % ESR (0-25) mm/hr Sodium 134 L (140-148) mmol/L Potassium 3.5 L (3.6-5.2) mmol/L Chloride 99 L (100-108) mmol/L Carbon Dioxide 26 (21-32) mmol/L Anion Gap 12.5 (5.0-14.0) mmol/L BUN 5 L (7-18) mg/dL Creatinine 0.6 (0.6-1.0) mg/dL Est Cr Clr Drug Dosing 122.01 mL/min Estimated GFR (MDRD) > 60 (>60) Glucose 209 H (74-106) mg/dL Calcium 8.4 L (8.5-10.1) mg/dL C-Reactive Protein (0.0-0.3) mg/dL Fluid Type Fluid WBC /ul Fluid RBC /ul Fluid Diff Comment Fluid Mononuclear Cell % Fl Polymorphonucl Cell % Uli Results Last 24 Hours: Microbiology 08/18/17 10:18 Anaerobic Culture - Preliminary Knee, Left NO GROWTH AFTER 1 DAY 08/18/17 10:18 Gram Stain - Final Joint / Synovial Fluid - Knee, Left Body Fluid Culture - Preliminary NO GROWTH AFTER 1 DAY 08/16/17 20:30 Urine Culture - Final Urine, Clean Catch MIXED POSITIVE JOVITA DAY 2 08/16/17 23:40 Aerobic Blood Culture - Preliminary Blood - Arm, Right NO GROWTH AFTER 2 DAYS Anaerobic Blood Culture - Preliminary NO GROWTH AFTER 2 DAYS 08/16/17 23:45 Aerobic Blood Culture - Preliminary Blood - Arm, Right NO GROWTH AFTER 2 DAYS Anaerobic Blood Culture - Preliminary NO GROWTH AFTER 2 DAYS Med Orders - Current: Current Medications Acetaminophen (Tylenol) 650 mg PO Q4H PRN PRN Reason: Pain (Mild 1-3)/fever Last Admin: 08/19/17 07:32 Dose: 650 mg Cyclobenzaprine HCl (Flexeril) 10 mg PO TID PRN PRN Reason: muscle pain Last Admin: 08/18/17 22:27 Dose: 10 mg Dextrose (Glutose 15) 15 gm PO ASDIRECTED PRN PRN Reason: Hypoglycemia Dextrose/Water (Dextrose 50% In Water) 50 ml IV ASDIRECTED PRN PRN Reason: Hypoglycemia Gabapentin (Neurontin) 800 mg PO QID [facility] Last Admin: 08/19/17 09:09 Dose: 800 mg Ceftriaxone Sodium 1 gm/ (Sodium Chloride) 50 mls @ 100 mls/hr IV Q24H [facility] Last Admin: 08/18/17 22:22 Dose: 100 mls/hr Ibuprofen (Motrin) 400 mg PO Q6H PRN PRN Reason: Pain Insulin Aspart (Novolog) 0 unit SUBCUT QIDACANDBED [facility]; Protocol Last Admin: 08/19/17 09:11 Dose: 2 unit Insulin Aspart (Novolog) 20 unit SUBCUT TIDMEALS [facility] Last Admin: 08/19/17 09:11 Dose: 20 units Insulin Detemir (Levemir) 60 unit SUBCUT BEDTIME [facility] Last Admin: 08/18/17 21:33 Dose: 60 units Magnesium Hydroxide (Milk Of Magnesia) 30 ml PO Q12H PRN PRN Reason: Constipation Metoprolol Tartrate (Lopressor) 25 mg PO BID [facility] Last Admin: 08/19/17 09:09 Dose: 25 mg Ondansetron HCl (Zofran) 4 mg IV Q4H PRN PRN Reason: Nausea/Vomiting Oxycodone HCl (Oxycodone) 10 mg PO Q4H PRN PRN Reason: Pain (moderate 4-6) Last Admin: 08/19/17 07:27 Dose: 10 mg Polyethylene Glycol (Miralax) 17 gm PO DAILY PRN PRN Reason: Constipation Senna/Docusate Sodium (Senna Plus) 1 tab PO BID PRN PRN Reason: Constipation Sodium Chloride (Saline Flush) 10 ml FLUSH ASDIRECTED PRN PRN Reason: Keep Vein Open Discontinued Medications Dexamethasone (Dexamethasone) Confirm Administered Dose 4 mg .ROUTE .STK-MED ONE Stop: 08/19/17 09:01 Dextrose/Water (Dextrose 50% In Water) 50 ml IVPUSH ONETIME PRN PRN Reason: Blood Glucose Fentanyl (Sublimaze) Confirm Administered Dose 250 mcg .ROUTE .STK-MED ONE Stop: 08/19/17 09:02 Glycopyrrolate (Robinul) Confirm Administered Dose 1 mg .ROUTE .STK-MED ONE Stop: 08/19/17 09:01 Hydromorphone HCl (Dilaudid) 1 mg IM ONETIME ONE Stop: 08/16/17 19:20 Last Admin: 08/16/17 19:28 Dose: 1 mg Insulin Human Regular 100 unit (/ Sodium Chloride) 100 mls @ 10.79 mls/hr IV TITRATE [facility]; Protocol Last Admin: 08/16/17 22:13 Dose: 0.14 units/kg/hr, 10.79 mls/hr Sodium Chloride (Normal Saline) 1,000 mls @ 999 mls/hr IV ASDIRECTED [facility] Last Admin: 08/16/17 22:08 Dose: 999 mls/hr Insulin Human Regular 100 unit (/ Sodium Chloride) 101 mls @ 8 mls/hr IV TITRATE [facility]; Protocol Last Titration: 08/17/17 04:43 Dose: 2 units/hr, 2.02 mls/hr Magnesium Sulfate (Magnesium Sulfate 2 Gm In Water 50 Ml) 50 mls @ 25 mls/hr IV ONETIME PRN PRN Reason: low magnesium Last Admin: 08/17/17 01:15 Dose: 25 mls/hr Potassium Chloride 20 meq/ (Premix) 100 mls @ 50 mls/hr IV ONETIME ONE Stop: 08/17/17 01:30 Last Admin: 08/17/17 04:22 Dose: 50 mls/hr Potassium Chloride 20 meq/ (Premix) 100 mls @ 50 mls/hr IV Q2H PRN PRN Reason: Hypokalemia Last Admin: 08/17/17 06:25 Dose: 50 mls/hr Potassium Chloride 20 meq/ (Premix) 100 mls @ 50 mls/hr IV Q2H PRN PRN Reason: Hypokalemia Last Admin: 08/17/17 00:26 Dose: 50 mls/hr Sodium Chloride (Normal Saline) 2,000 mls @ 500 mls/hr IV .CONTINUOUS PRN PRN Reason: Blood Glucose Last Admin: 08/17/17 12:18 Dose: 150 mls/hr Sodium Phosphate 60 mmole/ (Sodium Chloride) 270 mls @ 62.5 mls/hr IV ONETIME PRN PRN Reason: Low phophorus Insulin Aspart (Novolog) 15 unit SUBCUT TIDMEALS [facility] Last Admin: 08/18/17 11:41 Dose: 15 unit Insulin Aspart (Novolog) 12 unit SUBCUT ONETIME ONE Stop: 08/18/17 11:33 Last Admin: 08/18/17 11:47 Dose: 12 units Insulin Aspart (Novolog) 35 unit SUBCUT ONETIME ONE Stop: 08/18/17 16:43 Last Admin: 08/18/17 16:57 Dose: 35 units Insulin Detemir (Levemir) 0 unit SUBCUT BEDTIME [facility] Last Admin: 08/17/17 00:31 Dose: 45 units Insulin Detemir (Levemir) 45 unit SUBCUT BEDTIME [facility] Last Admin: 08/17/17 21:10 Dose: 45 units Neostigmine Methylsulfate (Neostigmine) Confirm Administered Dose 5 mg .ROUTE .STK-MED ONE Stop: 08/19/17 09:01 Ondansetron HCl (Zofran) Confirm Administered Dose 4 mg .ROUTE .STK-MED ONE Stop: 08/19/17 09:01 Oxycodone HCl (Oxycodone) 5 mg PO Q4H PRN PRN Reason: Pain (moderate 4-6) Last Admin: 08/18/17 10:03 Dose: 5 mg Potassium Chloride (Klor-Con M20) 40 meq PO ONETIME ONE Stop: 08/17/17 16:31 Last Admin: 08/17/17 16:16 Dose: 40 meq Potassium Chloride (Klor-Con M20) 40 meq PO ONETIME ONE Stop: 08/18/17 09:01 Last Admin: 08/18/17 10:04 Dose: 40 meq Potassium Chloride (Klor-Con M20) 40 meq PO ONETIME ONE Stop: 08/19/17 09:01 Last Admin: 08/19/17 09:08 Dose: 40 meq Propofol (Diprivan 20 Ml) Confirm Administered Dose 200 mg .ROUTE .STK-MED ONE Stop: 08/19/17 09:01 Rocuronium Arp (Zemuron) Confirm Administered Dose 50 mg .ROUTE .STK-MED ONE Stop: 08/19/17 09:01 Sodium Chloride (Saline Flush) 10 ml FLUSH ASDIRECTED PRN PRN Reason: Keep Vein Open Last Admin: 08/16/17 22:09 Dose: 10 ml - Exam General: Alert, Oriented, Cooperative, Moderate Distress Lungs: Clear to Auscultation, Normal Respiratory Effort Cardiovascular: Regular Rate, Regular Rhythm, No Murmurs GI/Abdominal Exam: Soft, Non-Tender, No Organomegaly, No Distention Extremities: Other (Persistent pain right shoulder with range of motion, persistent swelling and pain left knee) - Problem List Review Problem List Initiated/Reviewed/Updated: Yes - My Orders Last 24 Hours: My Active Orders 08/18/17 09:33 Consult to Physician [CONS] Routine URIC ACID [CHEM] Stat 08/18/17 09:34 Notify Provider Consults [RC] ASDIRECTED 08/18/17 09:45 Metoprolol Tartrate [Lopressor] 25 mg PO BID 08/18/17 12:27 Patient Status [ADT] Routine 08/18/17 12:49 oxyCODONE 10 mg PO Q4H PRN 08/18/17 12:55 NATHEN W/RFX TO ALL IF POSITIVE Urgent 08/18/17 17:00 Insulin Aspart [NovoLOG] 20 unit SUBCUT TIDMEALS 08/18/17 21:00 Insulin Detemir [Levemir] 60 unit SUBCUT BEDTIME 08/19/17 08:26 Ibuprofen [Motrin] 400 mg PO Q6H PRN 08/19/17 09:59 Consult to Physical Therapy [PT Evaluation and Treatment] [CONS] Routine 08/19/17 11:30 GLUCOSE POC LAB TO COLLECT [POC] QIDACANDBED 08/19/17 16:30 GLUCOSE POC LAB TO COLLECT [POC] QIDACANDBED 08/19/17 21:00 GLUCOSE POC LAB TO COLLECT [POC] QIDACANDBED 08/19/17 Breakfast NPO After Midnight [Nothing per Oral After Midnight Diet] [DIET] 08/20/17 07:30 GLUCOSE POC LAB TO COLLECT [POC] QIDACANDBED 08/20/17 11:30 GLUCOSE POC LAB TO COLLECT [POC] QIDACANDBED 08/20/17 16:30 GLUCOSE POC LAB TO COLLECT [POC] QIDACANDBED 08/20/17 21:00 GLUCOSE POC LAB TO COLLECT [POC] QIDACANDBED 08/21/17 07:30 GLUCOSE POC LAB TO COLLECT [POC] QIDACANDBED 08/21/17 11:30 GLUCOSE POC LAB TO COLLECT [POC] QIDACANDBED 08/21/17 16:30 GLUCOSE POC LAB TO COLLECT [POC] QIDACANDBED 08/21/17 21:00 GLUCOSE POC LAB TO COLLECT [POC] QIDACANDBED 08/22/17 07:30 GLUCOSE POC LAB TO COLLECT [POC] QIDACANDBED 08/22/17 11:30 GLUCOSE POC LAB TO COLLECT [POC] QIDACANDBED - Plan Plan:: ASSESSMENT AND PLAN DIABETIC KETOACIDOSIS-resolved, glucose control improved with more aggressive insulin regimen -Continue current insulin management, adjust as needed JOINT PAIN-cultures and an evaluation thus far show no obvious sign of infection , still suspicious that this represents underlying joint infections, she had already been treated with ceftriaxone for a few days for management of a urinary tract infection -Orthopedic follow-up by Dr. Umana, arthroscopic surgery of the knee later today -Synovial fluid analysis pending including culture -Further laboratory studies including CRP, sedimentation rate, Lyme serology, NATHEN, and rheumatoid factor pending -Continue ceftriaxone 1 g every 24 hours URINARY TRACT -culture has grown only mixed jovita MAINTENANCE ISSUES -DVT prophylaxis; not indicated -GI prophylaxis; not indicated -Pandey catheter; not indicated -Nutrition; consistent carb diet -Nicotine dependence; not required CODE STATUS-FULL CODE ADMISSION STATUS-patient will be admitted to inpatient status, expect at least a 2 night hospital stay for evaluation and management of problems as outlined above. At the time of this admission I do not reasonably expected evaluation and management of this problem will require more than a 96 hour hospital stay. DISPOSITION-anticipate discharge to home after the hospital stay. PRIMARY CARE PROVIDER-
[2017-08-19] MEDS: Cyclobenzaprine 10 MG Tab PO PRN (10:41)
[2017-08-19] MEDS ORDERED: Bupivacaine 0.5%/EPINEPHrine 1:200,000 50 ML MDV ONE (10:42)
[2017-08-19] MEDS ORDERED: Povidone-Iodine 10% Soln 118.25 ML Bottle ONE (10:42)
[2017-08-19] MEDS ORDERED: Gentamicin 40 MG/ML 2 ML Vial ONE (10:42)
[2017-08-19] MEDS: Lactobacillus Rhamnosus GG (Probiotic) Cap PO SCH ×2 (13:27→21:11)
[2017-08-19] MEDS ORDERED: Lactated Ringers 1,000 ML IV SCH (13:45)
[2017-08-19] MEDS ORDERED: hydrOXYzine HCl 100 MG/2 ML SDV IM ONE (16:50)
[2017-08-19] MEDS: Ibuprofen 400 MG Tab PO PRN (17:40)
--- NOTE | 2017-08-19 20:13 | OR ---
DATE OF PROCEDURE: 08/19/2017 PREOPERATIVE DIAGNOSIS: Left knee effusion. POSTOPERATIVE DIAGNOSIS: Left knee effusion. PROCEDURE: Left knee arthroscopy with irrigation and debridement. ANESTHESIA: General endotracheal intubation. FLUID: Lactated Ringer's solution. ESTIMATED BLOOD LOSS: 25 mL. COMPLICATIONS: None. SPECIMEN: None. DISCHARGE DISPOSITION: Stable to PACU. HISTORY AND INDICATIONS FOR THE PROCEDURE: The patient was admitted to the hospitalist service on 08/16/2017 for diabetic ketoacidosis. She had very high blood sugars and we were able to get them under control. I captured yesterday with over 60 mL of cloudy yellow fluid. Labs showed white count of just over 40,000. No organisms were seen. No growth has been seen so far. She was not improving. Risks and benefits of the procedure were explained to the patient. Informed consent was obtained. DETAILS OF PROCEDURE: The patient was seen preoperatively by myself and the Anesthesia staff in the preoperative holding area, where the operative site was marked. She was brought to the operative suite by Anesthesia staff, where general anesthesia was induced. A well-padded tourniquet was placed on the left thigh. All extremities were found to be well padded. The right lower extremity was placed into a stirrup. I did not use a tourniquet on this case due to the possibility of infection. I then made a lateral to medial portal and I entered the lateral portal with the trocar and then with the arthroscopy unit, I did not detect any abnormalities. I went through the suprapatellar pouch as well as the medial lateral gutters and examined the medial and lateral menisci as well as the anterior cruciate ligament. I did debride a portion of the infrapatellar fat pad. I copiously irrigated with gentamicin-infused irrigation. We then exited the wound and then injected 0.5% bupivacaine with epinephrine and then closed with 2 horizontal mattress sutures which were nylon followed by Betadine-soaked Adaptic followed by sterile dressing. The patient was then transferred to hospital bed and taken to the PACU in stable condition. Juan A Umana DO /[id number]
[2017-08-19] MEDS ORDERED: Insulin Aspart 100 Units/ML 3 ML Pen SUBCUT ONE (21:11)
--- NOTE | 2017-08-19 21:16 | PCM.SN ---
- Free Text/Narrative Note: time: [id number] call from [address] [place] [address] Nursing: high blood sugar O: blood glucose 430, after patient "ate 3 suppers" A: hyperglycemia P: give Novolog 15 units subcut now. continue present plan of care
[2017-08-19] MEDS: Insulin Detemir 100 Units/ML 3 ML Pen SUBCUT SCH (21:27)
[2017-08-19] MEDS: cefTRIAXone 1 GM in Sodium Chloride 0.9% 50 ML IV SCH (22:32)
[2017-08-20] MEDS: oxyCODONE 5 MG Tab PO PRN ×3 (01:17→10:05)
[2017-08-20] MEDS: Ibuprofen 400 MG Tab PO PRN (01:18)
[2017-08-20] MEDS: Gabapentin 400 MG Cap PO SCH ×2 (05:57→10:07)
[2017-08-20] MEDS ORDERED: Insulin Aspart 100 Units/ML 3 ML Pen SUBCUT ONE (07:50)
[2017-08-20] MEDS: Insulin Aspart 100 Units/ML 3 ML Pen SUBCUT SCH ×4 (07:58→11:46)
[2017-08-20 08:47] VITALS: BP 113/67
[2017-08-20] MEDS: Lactobacillus Rhamnosus GG (Probiotic) Cap PO SCH (09:08)
[2017-08-20] MEDS: Metoprolol Tartrate 25 MG Tab PO SCH (09:08)
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
[2017-08-20 12:09] LABS: ANA DIRECT Negative (Negative)
== END 2017-08-20 12:30 | disposition home or self-care (01) | DRG 629 ==
LOC: JP.ED 18:57 → JP.ICU 23:01 → JP.MS 08-18 14:20
PROVIDERS: ADMIT Hospitalist; ATTEND Hospitalist
PROC: 0S9D3ZX Drainage of Left Knee Joint, Percutaneous Approach, Diagnostic (ICD-10-PCS; principal; 2017-08-18)
PROC: 0R9J3ZX Drainage of Right Shoulder Joint, Percutaneous Approach, Diagnostic (ICD-10-PCS; 2017-08-18)
PROC: 0SJD4ZZ Inspection of Left Knee Joint, Percutaneous Endoscopic Approach (ICD-10-PCS; 2017-08-19)
PROC: 0SBD4ZZ Excision of Left Knee Joint, Percutaneous Endoscopic Approach (ICD-10-PCS; 2017-08-19)
PROC: 3E1U38Z Irrigation of Joints using Irrigating Substance, Percutaneous Approach (ICD-10-PCS; 2017-08-19)
DX: E11.10 Type 2 diabetes mellitus with ketoacidosis without coma (principal); N39.0 Urinary tract infection, site not specified; Z79.4 Long term (current) use of insulin; M25.511 Pain in right shoulder; M25.562 Pain in left knee; F17.210 Nicotine dependence, cigarettes, uncomplicated; W16.112A Fall into natural body of water striking water surface causing other injury, initial encounter; Y93.39 Activity, other involving climbing, rappelling and jumping off; Y92.828 Other wilderness area as the place of occurrence of the external cause; M25.462 Effusion, left knee; M19.90 Unspecified osteoarthritis, unspecified site; T38.3X6A Underdosing of insulin and oral hypoglycemic [antidiabetic] drugs, initial encounter; Z86.32 Personal history of gestational diabetes; Z87.440 Personal history of urinary (tract) infections; Z22.322 Carrier or suspected carrier of Methicillin resistant Staphylococcus aureus; M54.9 Dorsalgia, unspecified; G89.29 Other chronic pain; Z88.1 Allergy status to other antibiotic agents; Z88.0 Allergy status to penicillin; Z88.2 Allergy status to sulfonamides
CPT/HCPCS: 36415; 36600; 73020-26-RT; 73020-RT; 73562-26-LT; 73562-LT; 80048; 80053; 80305; 81001; 82009; 82803; 82962; 83036; 83605; 83615; 83735; 84100; 84132; 84484; 84550; 85025; 85651; 86038; 86140; 87040; 87070; 87075; 87086; 87205; 89050; 89060; 93005; 96361; 96372; 96374; 97110-GP; 97161-GP; 97530-GP; 97535-GP; 99285-25; A9270-GY; J0696; J1100; J1170; J1580; J2405; J2704; J2710; J3010; J3410; J3475; J3480; J7030; J7050

== ENCOUNTER 2017-08-23 00:49 | Emergency (ER) | payer MEDICAID ==
[2017-08-23 01:32] VITALS: BP 134/52
[2017-08-23] MEDS ORDERED: Ketorolac 60 MG/2 ML SDV IM ONE (01:48)
--- NOTE | 2017-08-23 01:54 | EDM.PDOC ---
ED HPI GENERAL MEDICAL PROBLEM - General Chief Complaint: Lower Extremity Injury/Pain Stated Complaint: LEFT KNEE, RIGHT ARM PAIN Time Seen by Provider: 08/23/17 01:40 Source of Information: Reports: Patient, Old Records, RN History Limitations: Reports: No Limitations - History of Present Illness INITIAL COMMENTS - FREE TEXT/NARRATIVE: 37 yo NA female presents for L calf pain/swelling that began after recent L knee surgery. Is followed by Dr. Helena Umana, orthopedics. Also, states that she is nearly out of her Percocet and it is not helping her pain(2 tabs left). Is wearing a loose WEST on her L knee on arrival. Has a f/u appt scheduled soon with Dr. Umana. Onset: Gradual Onset Date: 08/20/17 Duration: Day(s):, Constant Location: Reports: Lower Extremity, Left Quality: Reports: Dull Severity: Mild Improves with: Reports: Rest Worsens with: Reports: Movement Context: Reports: Other (post-op knee surgery) Associated Symptoms: Reports: No Other Symptoms Treatments WINTER INTERN: Reports: Other (see below) (Percocet) Other Treatments WINTER INTERN: crutches, knee support Right Shoulder Pain Score (Numeric/FACES): 6 Left Knee Pain Score (Numeric/FACES): 8 - Related Data Allergies Allergy/AdvReac Type Severity Reaction Status Date / Time amoxicillin Allergy Rash Verified 08/23/17 01:57 erythromycin base Allergy Rash Verified 08/23/17 01:57 Penicillins Allergy Rash Verified 08/23/17 01:57 Sulfa (Sulfonamide Allergy Rash Verified 08/23/17 01:57 Antibiotics) Home Meds: Home Meds Gabapentin [Neurontin] 800 mg PO QID 02/28/15 [History] Cyclobenzaprine [Flexeril] 10 mg PO TID PRN 08/16/17 [History] Ibuprofen 400 mg PO Q6H PRN #40 capsule 08/20/17 [Rx] Insulin Aspart [NovoLOG] 20 unit SUBCUT TIDMEALS pen 08/20/17 [Rx] Insulin Detemir [Levemir] 60 unit SUBCUT BEDTIME pen 08/20/17 [Rx] oxyCODONE 5 mg PO Q4H PRN #12 tab 08/20/17 [Rx] Past Medical History HEENT History: Reports: Allergic Rhinitis, Other (See Below) Other HEENT History: cracked ear drum Gastrointestinal History: Reports: Cholelithiasis Genitourinary History: Reports: Pyelonephritis, Renal Calculus, UTI, Recurrent Other Genitourinary History: recent renal calculus dx 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 - Past Surgical History GI Surgical History: Reports: Cholecystectomy Musculoskeletal Surgical History: Reports: Arthroscopic Knee, Other (See Below) Other Musculoskeletal Surgeries/Procedures:: right ankle surgery Social & Family History - Family History Family Medical History: Noncontributory Endocrine/Metabolic: Reports: Diabetes, type II - Tobacco Use Smoking Status *Q: Current Some Day Smoker Years of Tobacco use: 10 Packs/Tins Daily: 0.5 - Caffeine Use Caffeine Use: Reports: Coffee - Recreational Drug Use Recreational Drug Use: No Review of Systems - Review of Systems Review Of Systems: See Below Constitutional: Reports: No Symptoms Mouth/Throat: Reports: No Symptoms Respiratory: Reports: No Symptoms Cardiovascular: Reports: No Symptoms GI/Abdominal: Reports: No Symptoms Genitourinary: Reports: No Symptoms Musculoskeletal: Reports: Joint Pain (L knee and R shoulder), Joint Swelling (L knee and calf) Skin: Reports: No Symptoms Neurological: Reports: No Symptoms ED EXAM, GENERAL - Physical Exam Exam: See Below Exam Limited By: No Limitations General Appearance: Alert, WD/WN, No Apparent Distress Eye Exam: Bilateral Eye: Normal Inspection Ears: Normal External Exam, Normal Canal, Hearing Grossly Normal Ear Exam: Bilateral Ear: Auricle Normal, Canal Normal Nose: Normal Inspection, Normal Mucosa, No Blood Throat/Mouth: Normal Inspection, Normal Lips, Normal Voice, No Airway Compromise Head: Atraumatic, Normocephalic Neck: Normal Inspection Respiratory/Chest: No Respiratory Distress, Lungs Clear, Normal Breath Sounds, No Accessory Muscle Use Cardiovascular: Regular Rate, Rhythm Extremities: Normal Inspection, Pedal Edema (trace L calf pain with some tenderness.), Limited Range of Motion (L knee due to recent surgery). No: Normal Range of Motion, Non-Tender, No Pedal Edema, Increased Warmth, Mottled, Redness Neurological: Alert, Oriented, CN II-XII Intact, Normal Cognition, No Motor/ Sensory Deficits Psychiatric: Normal Affect, Normal Mood Skin Exam: Warm, Dry, Intact, Normal Color, No Rash Course - Vital Signs Last Recorded V/S: Last Vital Signs Temp 36.7 C 08/23/17 01:25 Pulse 116 H 08/23/17 01:25 Resp 14 08/23/17 01:25 BP 134/52 L 08/23/17 01:25 Pulse Ox 98 08/23/17 01:25 - Orders/Labs/Meds Orders: Active Orders 24 hr Category Date Time Status Duplex Lwr Ext Veins Ltd Lt [US] Stat Exams 08/23/17 02:57 Ordered Labs: Laboratory Tests 08/23/17 Range/Units 01:55 D-Dimer, Quantitative 981 H (0.0-400.0) ng/mL Meds: Medications Discontinued Medications Generic Name Dose Route Start Last Admin Trade Name Freq PRN Reason Stop Dose Admin Ketorolac Tromethamine 60 mg 08/23/17 01:48 08/23/17 02:05 Toradol IM 08/23/17 01:49 60 mg ONETIME ONE Administration - Radiology Interpretation Free Text/Narrative:: Venous doppler L calf- Departure - Departure Time of Disposition: 04:18 Disposition: Home, Self-Care 01 Condition: Fair Clinical Impression: Dependent edema - Discharge Information Referrals: PCP,None [Primary Care Provider] - Forms: ED Department Discharge - My Orders Last 24 Hours: My Active Orders 08/23/17 02:57 Duplex Lwr Ext Veins Ltd Lt [US] Stat - Assessment/Plan Last 24 Hours: My Active Orders 08/23/17 02:57 Duplex Lwr Ext Veins Ltd Lt [US] Stat
--- NOTE | 2017-08-23 10:18 | US ---
VL Duplex Lwr Ext Veins Ltd Lt CLINICAL HISTORY: Left lower extremity pain swelling, postop arthroscopy FINDINGS: Normal flow is seen from the left common femoral vein downward to the calf veins. Veins wer e compressible. There is augmentation throughout. There is a small fluid collection in the popliteal fossa measuring 3.5 x 1.5 x 1.1 cm. IMPRESSION: No evidence of deep venous thrombosis Small left popliteal cyst
== END 2017-08-23 04:32 | disposition home or self-care (01) ==
LOC: JP.ED 00:49
DX: R60.0 Localized edema (principal); F41.9 Anxiety disorder, unspecified; F32.9 Major depressive disorder, single episode, unspecified; F17.210 Nicotine dependence, cigarettes, uncomplicated; Z88.1 Allergy status to other antibiotic agents; Z88.0 Allergy status to penicillin; Z88.2 Allergy status to sulfonamides; Z79.899 Other long term (current) drug therapy; Z79.4 Long term (current) use of insulin; Z87.442 Personal history of urinary calculi
CPT/HCPCS: 36415; 85379; 93971; 96372; 99284; J1885; 99283

== ENCOUNTER 2017-08-25 10:06 | Emergency (ER) | payer MEDICAID ==
[2017-08-25 10:29] VITALS: BP 104/66
--- NOTE | 2017-08-25 10:37 | EDM.PDOC ---
ED HPI GENERAL MEDICAL PROBLEM - General Chief Complaint: Upper Extremity Injury/Pain Stated Complaint: RIGHT SHOULDER PAIN Time Seen by Provider: 08/25/17 10:30 Source of Information: Reports: Patient, Old Records History Limitations: Reports: No Limitations - History of Present Illness INITIAL COMMENTS - FREE TEXT/NARRATIVE: 37 yo female was seen here 2 d ago for L knee and R shoulder pain as well as L calf puffiness. A DVT was ruled out and she was given a Toradol shot. She had stated that day that she had a couple of her pain pills left but they were not working. Is followed by Dr. Helena Umana who did arthroscopy on her L knee 08/19/17. She has a PT appt for tomorrow, but she has already cancelled it. I looks like her next visit with ortho is on 09/02/17. She returns to the ER today for this continued shoulder/knee pain. Has not attempted to get in to see her primary. Says its hard to raise her L arm. 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) (Ortho did arthroscopy on the L knee , PT was ordered, had pain pills(out now).) Right Arm Pain Score (Numeric/FACES): 9 - Related Data Allergies Allergy/AdvReac Type Severity Reaction Status Date / Time amoxicillin Allergy Rash Verified 08/25/17 10:38 erythromycin base Allergy Rash Verified 08/25/17 10:38 Penicillins Allergy Rash Verified 08/25/17 10:38 Sulfa (Sulfonamide Allergy Rash Verified 08/25/17 10:38 Antibiotics) Home Meds: Home Meds Gabapentin [Neurontin] 800 mg PO QID 02/28/15 [History] Cyclobenzaprine [Flexeril] 10 mg PO TID PRN 08/16/17 [History] Ibuprofen 400 mg PO Q6H PRN #40 capsule 08/20/17 [Rx] Insulin Aspart [NovoLOG] 20 unit SUBCUT TIDMEALS pen 08/20/17 [Rx] Insulin Detemir [Levemir] 60 unit SUBCUT BEDTIME pen 08/20/17 [Rx] Past Medical History HEENT History: Reports: Allergic Rhinitis, Other (See Below) Other HEENT History: cracked ear drum Gastrointestinal History: Reports: Cholelithiasis Genitourinary History: Reports: Pyelonephritis, Renal Calculus, UTI, Recurrent Other Genitourinary History: recent renal calculus dx 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 - Past Surgical History Musculoskeletal Surgical History: Reports: Arthroscopic Knee, Other (See Below) Social & Family History - Family History Family Medical History: Noncontributory Endocrine/Metabolic: Reports: Diabetes, type II - Caffeine Use Caffeine Use: Reports: Coffee Review of Systems - Review of Systems Review Of Systems: See Below Constitutional: Reports: No Symptoms Mouth/Throat: Reports: No Symptoms Respiratory: Reports: No Symptoms Cardiovascular: Reports: No Symptoms GI/Abdominal: Reports: No Symptoms Musculoskeletal: Reports: Joint Pain (R shoulder and L knee) Skin: Reports: No Symptoms Neurological: Reports: No Symptoms ED EXAM, GENERAL - Physical Exam Exam: See Below Exam Limited By: No Limitations General Appearance: Alert, WD/WN, No Apparent Distress Eye Exam: Bilateral Eye: Normal Inspection Ears: Normal External Exam, Normal Canal, Hearing Grossly Normal Ear Exam: Bilateral Ear: Auricle Normal, Canal Normal Nose: Normal Inspection, Normal Mucosa, No Blood Throat/Mouth: Normal Lips, Normal Voice, No Airway Compromise Head: Atraumatic, Normocephalic Neck: Normal Inspection, Supple, Non-Tender Respiratory/Chest: No Respiratory Distress, Lungs Clear, Normal Breath Sounds, No Accessory Muscle Use Cardiovascular: Regular Rate, Rhythm Extremities: Normal Inspection, No Pedal Edema, Limited Range of Motion (due to pain, ? muscle weakness R shoulder.). No: Increased Warmth, Mottled, Redness Neurological: Alert, Oriented, CN II-XII Intact, Normal Cognition, No Motor/ Sensory Deficits Psychiatric: Normal Affect, Normal Mood Skin Exam: Warm, Dry, Intact, Normal Color, No Rash Course - Vital Signs Last Recorded V/S: Last Vital Signs Temp 36.3 C 08/25/17 10:33 Pulse 93 08/25/17 10:33 Resp 16 08/25/17 10:33 BP 104/66 08/25/17 10:33 Pulse Ox 97 08/25/17 10:33 - Orders/Labs/Meds Meds: Medications Discontinued Medications Generic Name Dose Route Start Last Admin Trade Name Freq PRN Reason Stop Dose Admin Ketorolac Tromethamine 60 mg 08/25/17 10:48 Toradol IM 08/25/17 10:49 ONETIME ONE Departure - Departure Time of Disposition: 11:00 Disposition: Home, Self-Care 01 Condition: Good Clinical Impression: Rotator cuff disorder Qualifiers: Laterality: right Qualified Code(s): M67.911 - Unspecified disorder of synovium and tendon, right shoulder Knee pain, left Qualifiers: Chronicity: unspecified Qualified Code(s): M25.562 - Pain in left knee - Discharge Information Referrals: PCP,None [Primary Care Provider] - Forms: ED Department Discharge
[2017-08-25] MEDS ORDERED: Ketorolac 60 MG/2 ML SDV IM ONE (10:48)
== END 2017-08-25 11:05 | disposition home or self-care (01) ==
LOC: JP.ED 10:06
DX: M67.911 Unspecified disorder of synovium and tendon, right shoulder (principal); M25.562 Pain in left knee; E11.9 Type 2 diabetes mellitus without complications; F41.9 Anxiety disorder, unspecified; F32.9 Major depressive disorder, single episode, unspecified; Z79.4 Long term (current) use of insulin; Z79.899 Other long term (current) drug therapy; Z88.1 Allergy status to other antibiotic agents; Z88.2 Allergy status to sulfonamides
CPT/HCPCS: 96372; 99283; J1885

== ENCOUNTER 2020-07-05 20:23 | Emergency (ER) | payer MEDICAID ==
[2020-07-05 20:35] VITALS: BP 127/69; PULSE 107
[2020-07-05] MEDS ORDERED: Ketorolac 30 MG/ML SDV IVPUSH ONE (21:09)
--- NOTE | 2020-07-05 21:40 | EDM.PDOC ---
ED HPI GENERAL MEDICAL PROBLEM - General Chief Complaint: Genitourinary Problem Stated Complaint: MEDICAL VIA [facility] Time Seen by Provider: 07/05/20 20:35 Source of Information: Reports: Patient, EMS History Limitations: Reports: No Limitations - History of Present Illness INITIAL COMMENTS - FREE TEXT/NARRATIVE: 39-year-old female brought in by ambulance with lower extremity weakness, fatigue, intermittent fevers, generalized myalgias and some urinary urgency and dysuria. This has all come on in the last 36 hours. She is also developed a headache. No sore throat, no significant shortness of breath or cough. A few episodes of emesis at home, now just mild nausea. Onset: Gradual Duration: Day(s): (2 days) Associated Symptoms: Reports: Fever/Chills, Headaches, Malaise, Nausea/Vomiting, Weakness. Denies: Cough, Shortness of Breath Head Pain Score (Numeric/FACES): 9 - Related Data Allergies Allergy/AdvReac Type Severity Reaction Status Date / Time amoxicillin Allergy Rash Verified 07/05/20 20:30 erythromycin base Allergy Rash Verified 07/05/20 20:30 Penicillins Allergy Rash Verified 07/05/20 20:30 Sulfa (Sulfonamide Allergy Rash Verified 07/05/20 20:30 Antibiotics) Home Meds: Home Meds Ibuprofen 400 mg PO Q6H PRN #40 capsule 08/20/17 [Rx] Insulin Aspart [NovoLOG] 20 unit SUBCUT TIDMEALS pen 08/20/17 [Rx] Gabapentin [Neurontin] 1 tab PO BID 07/05/20 [History] Insulin Glarg,Human.Rec.Analog [Lantus Solostar] 15 units SQ BEDTIME 07/05/20 [History] Past Medical History HEENT History: Reports: Allergic Rhinitis, Other (See Below) Other HEENT History: cracked ear drum Gastrointestinal History: Reports: Cholelithiasis Genitourinary History: Reports: Pyelonephritis, Renal Calculus, UTI, Recurrent Other Genitourinary History: recent renal calculus dx 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 - Past Surgical History GI Surgical History: Reports: Cholecystectomy Musculoskeletal Surgical History: Reports: Arthroscopic Knee, Other (See Below), Other (See Below) Other Musculoskeletal Surgeries/Procedures:: right ankle surgery Dermatological Surgical History: Reports: Other (See Below) Social & Family History - Family History Family Medical History: No Pertinent Family History Endocrine/Metabolic: Reports: Diabetes, type II - Tobacco Use Tobacco Use Status *Q: Current Every Day Tobacco User Years of Tobacco use: 20 Packs/Tins Daily: 0.5 - Caffeine Use Caffeine Use: Reports: Coffee - Recreational Drug Use Recreational Drug Use: Yes Drug Use in Last 12 Months: Yes Recreational Drug Type: Reports: Marijuana/Hashish Recreational Drug Use Frequency: Socially ED ROS GENERAL - Review of Systems Review Of Systems: See Below Constitutional: Reports: Fever, Chills, Malaise, Decreased Appetite HEENT: Denies: Throat Pain, Vision Change Respiratory: Denies: Cough Cardiovascular: Denies: Chest Pain Endocrine: Reports: Fatigue GI/Abdominal: Reports: Nausea, Vomiting. Denies: Abdominal Pain Musculoskeletal: Reports: Leg Pain (Bilateral) Skin: Reports: No Symptoms Neurological: Reports: Dizziness, Headache, Weakness Psychiatric: Reports: No Symptoms ED EXAM, GENERAL - Physical Exam Exam: See Below Exam Limited By: No Limitations General Appearance: Alert, No Apparent Distress (Looks uncomfortable but not distressed) Eye Exam: Bilateral Eye: Normal Inspection (No jaundice) Head: Atraumatic Neck: Supple, Non-Tender Respiratory/Chest: No Respiratory Distress, Lungs Clear Cardiovascular: Regular Rate, Rhythm, Tachycardia (Mild tachycardia) GI/Abdominal: Soft, Non-Tender Back Exam: CVA Tenderness (R), CVA Tenderness (L), Other (Patient does have some tenderness to percussion over both CVA areas) Extremities: Normal Inspection. No: Pedal Edema Neurological: Alert, Oriented Psychiatric: Normal Affect, Normal Mood Skin Exam: Warm, Dry Course - Vital Signs Last Recorded V/S: Last Vital Signs Temp 101.3 F H 07/05/20 20:25 Pulse 107 H 07/05/20 20:25 Resp 16 07/05/20 20:25 BP 127/69 07/05/20 20:25 Pulse Ox 97 07/05/20 20:25 - Orders/Labs/Meds Orders: Active Orders 24 hr Category Date Time Status Isolation [COMM] Stat Oth 07/05/20 21:06 Ordered Labs: Laboratory Tests 07/05/20 07/05/20 07/05/20 Range/Units 21:06 21:06 21:22 WBC 18.7 H (4.5-11.0) K/uL RBC 5.06 (3.30-5.50) M/uL Hgb 13.9 D (12.0-15.0) g/dL Hct 42.3 (36.0-48.0) % MCV 84 (80-98) fL MCH 28 (27-31) pg MCHC 33 (32-36) % Plt Count 338 (150-400) K/uL Neut % (Auto) 87 H (36-66) % Lymph % (Auto) 9 L (24-44) % [place] % (Auto) 4 (2-6) % Eos % (Auto) 0 L (2-4) % Baso % (Auto) 0 (0-1) % Sodium (140-148) mmol/L Potassium (3.6-5.2) mmol/L Chloride (100-108) mmol/L Carbon Dioxide (21-32) mmol/L Anion Gap (5.0-14.0) mmol/L BUN (7-18) mg/dL Creatinine (0.6-1.0) mg/dL Est Cr Clr Drug Dosing mL/min Estimated GFR (MDRD) (>60) Glucose (74-106) mg/dL Calcium (8.5-10.1) mg/dL Total Bilirubin (0.2-1.0) mg/dL AST (15-37) U/L ALT (12-78) U/L Alkaline Phosphatase (46-116) U/L Total Protein (6.4-8.2) g/dL Albumin (3.4-5.0) g/dL Globulin (2.3-3.5) g/dL Albumin/Globulin Ratio (1.2-2.2) Lipase (73-393) U/L Urine Color Yellow (YELLOW) Urine Appearance Slightly cloudy A (CLEAR) Urine pH 6.0 (5.0-8.0) Ur Specific [place] >= 1.030 (1.008-1.030) Urine Protein Trace H (NEGATIVE) mg/dL Urine Glucose (UA) 500 H (NEGATIVE) mg/dL Urine Ketones 40 H (NEGATIVE) mg/dL Urine Occult Blood Negative (NEGATIVE) Urine Nitrite Negative (NEGATIVE) Urine Bilirubin Negative (NEGATIVE) Urine Urobilinogen 0.2 (0.2-1.0) EU/dL Ur Leukocyte Esterase Negative (NEGATIVE) Urine RBC 0-5 (0-5) Urine WBC 0-5 (0-5) Ur Epithelial Cells Few Amorphous Sediment Rare Urine Bacteria Occasional Urine Mucus Few Urine Other See note Urine Opiates Screen Negative (NEGATIVE) Ur Oxycodone Screen Negative (NEGATIVE) Urine Methadone Screen Negative (NEGATIVE) Ur Propoxyphene Screen Negative (NEGATIVE) Ur Barbiturates Screen Negative (NEGATIVE) Ur Tricyclics Screen Negative (NEGATIVE) Ur Phencyclidine Scrn Negative (NEGATIVE) Ur Amphetamine Screen Negative (NEGATIVE) U Methamphetamines Scrn Negative (NEGATIVE) Urine MDMA Screen Negative (NEGATIVE) U Benzodiazepines Scrn Negative (NEGATIVE) U Cocaine Metab Screen Negative (NEGATIVE) U Marijuana (THC) Screen Presumptive positive H (NEGATIVE) Influenza Type A RNA (NEGATIVE) RSV RNA (INAAT) (NEGATIVE) Influenza Type B RNA (NEGATIVE) SARS-CoV-2 RNA (LUANN) (NEGATIVE) 07/05/20 07/05/20 Range/Units 21:22 21:22 WBC (4.5-11.0) K/uL RBC (3.30-5.50) M/uL Hgb (12.0-15.0) g/dL Hct (36.0-48.0) % MCV (80-98) fL MCH (27-31) pg MCHC (32-36) % Plt Count (150-400) K/uL Neut % (Auto) (36-66) % Lymph % (Auto) (24-44) % [place] % (Auto) (2-6) % Eos % (Auto) (2-4) % Baso % (Auto) (0-1) % Sodium 141 (140-148) mmol/L Potassium 3.9 (3.6-5.2) mmol/L Chloride 104 (100-108) mmol/L Carbon Dioxide 22 (21-32) mmol/L Anion Gap 15.2 H (5.0-14.0) mmol/L BUN 14 (7-18) mg/dL Creatinine 0.8 (0.6-1.0) mg/dL Est Cr Clr Drug Dosing 89.26 mL/min Estimated GFR (MDRD) > 60 (>60) Glucose 259 H (74-106) mg/dL Calcium 9.0 (8.5-10.1) mg/dL Total Bilirubin 0.3 (0.2-1.0) mg/dL AST 12 L (15-37) U/L ALT 24 (12-78) U/L Alkaline Phosphatase 149 H (46-116) U/L Total Protein 7.9 (6.4-8.2) g/dL Albumin 3.3 L (3.4-5.0) g/dL Globulin 4.6 H (2.3-3.5) g/dL Albumin/Globulin Ratio 0.7 L (1.2-2.2) Lipase 106 (73-393) U/L Urine Color (YELLOW) Urine Appearance (CLEAR) Urine pH (5.0-8.0) Ur Specific [place] (1.008-1.030) Urine Protein (NEGATIVE) mg/dL Urine Glucose (UA) (NEGATIVE) mg/dL Urine Ketones (NEGATIVE) mg/dL Urine Occult Blood (NEGATIVE) Urine Nitrite (NEGATIVE) Urine Bilirubin (NEGATIVE) Urine Urobilinogen (0.2-1.0) EU/dL Ur Leukocyte Esterase (NEGATIVE) Urine RBC (0-5) Urine WBC (0-5) Ur Epithelial Cells Amorphous Sediment Urine Bacteria Urine Mucus Urine Other Urine Opiates Screen (NEGATIVE) Ur Oxycodone Screen (NEGATIVE) Urine Methadone Screen (NEGATIVE) Ur Propoxyphene Screen (NEGATIVE) Ur Barbiturates Screen (NEGATIVE) Ur Tricyclics Screen (NEGATIVE) Ur Phencyclidine Scrn (NEGATIVE) Ur Amphetamine Screen (NEGATIVE) U Methamphetamines Scrn (NEGATIVE) Urine MDMA Screen (NEGATIVE) U Benzodiazepines Scrn (NEGATIVE) U Cocaine Metab Screen (NEGATIVE) U Marijuana (THC) Screen (NEGATIVE) Influenza Type A RNA Negative (NEGATIVE) RSV RNA (INAAT) Negative (NEGATIVE) Influenza Type B RNA Negative (NEGATIVE) SARS-CoV-2 RNA (LUANN) Negative (NEGATIVE) Meds: Medications Discontinued Medications Generic Name Dose Route Start Last Admin Trade Name Bailey PRN Reason Stop Dose Admin Ciprofloxacin/Dextrose 400 mg/ 200 mls @ 200 mls/hr 07/05/20 22:17 07/05/20 22:38 Premix IV 07/05/20 23:16 200 mls/hr ONETIME ONE Administration Sodium Chloride 1,000 mls @ 999 mls/hr 07/05/20 22:45 07/05/20 22:41 Normal Saline IV 999 mls/hr ASDIRECTED SHAHBAZ Administration Ketorolac Tromethamine 30 mg 07/05/20 21:09 07/05/20 21:15 Ketorolac 30 Mg/Ml Sdv IVPUSH 07/05/20 21:10 30 mg ONETIME ONE Administration - Re-Assessments/Exams Free Text/Narrative Re-Assessment/Exam: 07/05/20 21:40 CBC, CMP, lipase were obtained as well as a UA and urine drug screen. Patient was given 30 mg of IV Toradol. 07/05/20 23:23 CBC revealed a white count of 15,200, CMP and lipase were relatively normal other than an elevated glucose. Urine looked better than expected but there was some bacteria, with her CVA tenderness and lack of other findings presumptive UTI with possible early pyelonephritis was treated. Her 4 Plex viral study including Covid came back negative. Patient was bolused with 1 L of normal saline, given 400 mg of IV Cipro, and will be placed on 500 mg twice daily and a urine culture was ordered. She also responded well to 30 mg of IV Toradol, so was given 10 additional doses of oral Toradol to take for pain control. Departure - Departure Time of Disposition: 00:03 Disposition: Home, Self-Care 01 Clinical Impression: UTI, Urinary tract infectious disease - Discharge Information Instructions: Urinary Tract Infection, Adult Referrals: PCP,None [Primary Care Provider] - Forms: ED Department Discharge Care Plan Goals: Take antibiotic twice daily for at least 7 days, and use Toradol up to three times daily for pain control. Drink lots of fluids, recheck next week if not improving satisfactorily or return anytime if worsening such as vomiting the medication or worsening pain which is persistent. Sepsis Event Note (ED) - Evaluation Sepsis Screening Result: No Definite Risk - Focused Exam Vital Signs: Vital Signs Temp Pulse Resp BP Pulse Ox 07/05/20 20:25 101.3 F H 107 H 16 127/69 97 - My Orders Last 24 Hours: My Active Orders 07/05/20 21:06 Isolation [COMM] Stat - Assessment/Plan Last 24 Hours: My Active Orders 07/05/20 21:06 Isolation [COMM] Stat
[2020-07-05 22:03] LABS: CORONAVIRUS COVID-19 NAA NEGATIVE (NEGATIVE)
[2020-07-05] MEDS ORDERED: Ciprofloxacin in D5W 400 MG in Premix Bag 1 BAG IV ONE ×2 (22:17)
[2020-07-05] MEDS ORDERED: Sodium Chloride 0.9% 1,000 ML IV SCH (22:45)
== END 2020-07-06 00:02 | disposition home or self-care (01) ==
LOC: JP.ED 20:23
DX: N39.0 Urinary tract infection, site not specified (principal); E66.9 Obesity, unspecified; E11.9 Type 2 diabetes mellitus without complications; Z68.29 Body mass index [BMI] 29.0-29.9, adult; Z20.822 Contact with and (suspected) exposure to COVID-19; Z88.0 Allergy status to penicillin; Z88.1 Allergy status to other antibiotic agents; Z88.2 Allergy status to sulfonamides; Z79.4 Long term (current) use of insulin; Z72.0 Tobacco use
CPT/HCPCS: 0241U; 36415; 80053; 80305; 81001; 83690; 85025; 96365; 96375; 99284; J0744; J1885; J7030

== ENCOUNTER 2020-07-27 20:04 | Emergency (ER) | payer MEDICAID ==
[2020-07-27] MEDS ORDERED: Sodium Chloride 0.9% 10 ML Syringe FLUSH PRN (20:05)
[2020-07-27] MEDS ORDERED: Clindamycin Phosphate 900 MG in Sodium Chloride 0.9% 100 ML IV ONE (20:08)
[2020-07-27] MEDS ORDERED: HYDROmorphone 1 MG/ML Syringe IVPUSH ONE (20:12)
[2020-07-27] MEDS ORDERED: Ondansetron 4 MG/2 ML SDV IVPUSH ONE (20:12)
--- NOTE | 2020-07-27 20:26 | EDM.PDOC ---
ED HPI GENERAL MEDICAL PROBLEM - General Chief Complaint: Allergic Reaction Stated Complaint: NECK/FACE PAIN VIA [facility] Time Seen by Provider: 07/27/20 20:05 Source of Information: Reports: Patient, EMS History Limitations: Reports: No Limitations - History of Present Illness INITIAL COMMENTS - FREE TEXT/NARRATIVE: Jerrod is a 40-year-old female presenting to the ED via [facility] for difficulty swallowing and difficulty breathing secondary to right facial, neck, and throat swelling. Patient has been dealing with this for the last 4 days and it has continued to worsen. She reports that she had a tonsillectomy as a child. She states that it started out with a sore throat but now has become so intense that is causing right-sided headache, right neck pain and swelling, causing a muffled voice and making it difficult for her to breathe or swallow. She currently is able to manage her airway and secretions. She has a very muffled voice. Neck Pain Score (Numeric/FACES): 9 - Related Data Allergies Allergy/AdvReac Type Severity Reaction Status Date / Time amoxicillin Allergy Rash Verified 07/05/20 20:30 erythromycin base Allergy Rash Verified 07/05/20 20:30 Penicillins Allergy Rash Verified 07/05/20 20:30 Sulfa (Sulfonamide Allergy Rash Verified 07/05/20 20:30 Antibiotics) Home Meds: Home Meds Gabapentin [Neurontin] 1 tab PO BID 07/05/20 [History] Insulin Glarg,Human.Rec.Analog [Lantus Solostar] 15 units SQ BEDTIME 07/05/20 [History] Insulin Aspart [NovoLOG] 10 - 20 unit SUBCUT TIDMEALS 07/27/20 [History] Past Medical History HEENT History: Reports: Allergic Rhinitis, Other (See Below) Other HEENT History: cracked ear drum Cardiovascular History: Reports: None Respiratory History: Reports: None Gastrointestinal History: Reports: Cholelithiasis Genitourinary History: Reports: Pyelonephritis, Renal Calculus, UTI, Recurrent Other Genitourinary History: recent renal calculus dx OPTICAL DISPENSER History: Reports: , 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 - Past Surgical History GI Surgical History: Reports: Cholecystectomy Musculoskeletal Surgical History: Reports: Arthroscopic Knee, Other (See Below), Other (See Below) Other Musculoskeletal Surgeries/Procedures:: right ankle surgery Dermatological Surgical History: Reports: Other (See Below) Social & Family History - Family History Family Medical History: No Pertinent Family History Endocrine/Metabolic: Reports: Diabetes, type II - Caffeine Use Caffeine Use: Reports: Coffee ED ROS ALLERGIC REACTION - Review of Systems Review Of Systems: See Below Constitutional: Reports: Chills, Malaise HEENT: Reports: Throat Pain, Throat Swelling, Other (Difficulty swallowing) Respiratory: Reports: Shortness of Breath (Secondary to the swelling in her throat) Cardiovascular: Reports: No Symptoms Endocrine: Reports: Fatigue GI/Abdominal: Reports: No Symptoms : Reports: No Symptoms Musculoskeletal: Reports: Neck Pain (Right-sided neck pain and swelling) Skin: Reports: No Symptoms Neurological: Reports: Headache (Right-sided headache) Psychiatric: Reports: Anxiety Hematologic/Lymphatic: Reports: No Symptoms Immunologic: Reports: No Symptoms ED EXAM GENERAL NO PERIP PULSE - Physical Exam Exam: See Below Exam Limited By: No Limitations General Appearance: Alert, Moderate Distress Eye Exam: Bilateral Eye: EOMI, PERRL Nose: Normal Inspection Throat/Mouth: Other (Large swelling around the right tonsillar arch approaching the uvula. The area is thematous.) Head: Facial Swelling (Right-sided facial swelling), Facial Tenderness (Right- sided facial tenderness) Neck: Limited Range of Motion (Limited range of motion secondary to pain on the right side of the neck), Lymphadenopathy (R), Tender Lateral, Other (Significant swelling of the right side of the neck into the soft tissues with increased heat.) Respiratory/Chest: No Respiratory Distress, Lungs Clear, Normal Breath Sounds. No: Rales, Rhonchi, Wheezing, Stridor Cardiovascular: Normal Peripheral Pulses, Tachycardia GI/Abdominal: Normal Bowel Sounds, Soft, Non-Tender Back Exam: Normal Inspection Extremities: Normal Inspection Neurological: Alert, Oriented, CN II-XII Intact, Normal Cognition, No Motor/Sensory Deficits Psychiatric: Normal Affect, Anxious Skin Exam: Warm, Dry, Intact Lymphatic: Adenopathy (Left cervical adenopathy) Course - Vital Signs Last Recorded V/S: Last Vital Signs Temp 38.2 C H 07/27/20 20:07 Pulse 118 H 07/27/20 20:07 Resp 24 H 07/27/20 20:07 BP 139/94 H 07/27/20 20:07 Pulse Ox 96 07/27/20 20:07 - Orders/Labs/Meds Orders: Active Orders 24 hr Category Date Time Status Soft Tissue Neck w Cont [CT] Stat Exams 07/27/20 20:09 Taken Iopamidol [Isovue-300 (61%)] Med 07/27/20 20:45 Active 100 ml IV . DIRECTED Sodium Chloride 0.9% [Normal Saline] 80 ml Med 07/27/20 20:45 Active IV ASDIRECTED Sodium Chloride 0.9% [Saline Flush] Med 07/27/20 20:05 Active 10 ml FLUSH ASDIRECTED PRN Isolation [COMM] Stat Oth 07/27/20 20:07 Ordered Saline Lock Insert [OM.PC] Routine Oth 07/27/20 20:05 Ordered Medication Orders Sodium Chloride (Normal Saline) 80 mls @ 3 mls/sec IV ASDIRECTED SHAHBAZ Last Admin: 07/27/20 20:38 Dose: 3 mls/sec Documented by: BRYAN Iopamidol (Iopamidol 612 Mg/Ml 100 Ml Bottle) 100 ml IV . DIRECTED SHAHBAZ Last Admin: 07/27/20 20:39 Dose: 100 ml Documented by: BRYAN Sodium Chloride (Sodium Chloride 0.9% 10 Ml Syringe) 10 ml FLUSH ASDIRECTED PRN PRN Reason: Keep Vein Open Last Admin: 07/27/20 20:31 Dose: 10 ml Documented by: PREILOR Labs: Laboratory Tests 07/27/20 07/27/20 07/27/20 Range/Units 20:14 20:15 20:15 WBC 13.3 H (4.5-11.0) K/uL RBC 5.31 (3.30-5.50) M/uL Hgb 14.5 (12.0-15.0) g/dL Hct 44.3 (36.0-48.0) % MCV 83 (80-98) fL MCH 27 (27-31) pg MCHC 33 (32-36) % Plt Count 462 H (150-400) K/uL Neut % (Auto) 71 H (36-66) % Lymph % (Auto) 19 L (24-44) % [place] % (Auto) 7 H (2-6) % Eos % (Auto) 2 (2-4) % Baso % (Auto) 0 (0-1) % Sodium 135 L (140-148) mmol/L Potassium 4.0 (3.6-5.2) mmol/L Chloride 94 L (100-108) mmol/L Carbon Dioxide 26 (21-32) mmol/L Anion Gap 19.0 H (5.0-14.0) mmol/L BUN 8 (7-18) mg/dL Creatinine 0.8 (0.6-1.0) mg/dL Est Cr Clr Drug Dosing 91.81 mL/min Estimated GFR (MDRD) > 60 (>60) Glucose 388 H (74-106) mg/dL Lactic Acid (0.4-2.0) mmol/L Calcium 9.0 (8.5-10.1) mg/dL Total Bilirubin 0.7 D (0.2-1.0) mg/dL AST 18 (15-37) U/L ALT 23 (12-78) U/L Alkaline Phosphatase 189 H (46-116) U/L C-Reactive Protein 9.30 H (0.0-0.3) mg/dL Total Protein 9.3 H (6.4-8.2) g/dL Albumin 3.6 (3.4-5.0) g/dL Globulin 5.7 H (2.3-3.5) g/dL Albumin/Globulin Ratio 0.6 L (1.2-2.2) SARS CoV-2 RNA Rapid LUANN Negative 07/27/20 Range/Units 20:15 WBC (4.5-11.0) K/uL RBC (3.30-5.50) M/uL Hgb (12.0-15.0) g/dL Hct (36.0-48.0) % MCV (80-98) fL MCH (27-31) pg MCHC (32-36) % Plt Count (150-400) K/uL Neut % (Auto) (36-66) % Lymph % (Auto) (24-44) % [place] % (Auto) (2-6) % Eos % (Auto) (2-4) % Baso % (Auto) (0-1) % Sodium (140-148) mmol/L Potassium (3.6-5.2) mmol/L Chloride (100-108) mmol/L Carbon Dioxide (21-32) mmol/L Anion Gap (5.0-14.0) mmol/L BUN (7-18) mg/dL Creatinine (0.6-1.0) mg/dL Est Cr Clr Drug Dosing mL/min Estimated GFR (MDRD) (>60) Glucose (74-106) mg/dL Lactic Acid 1.3 (0.4-2.0) mmol/L Calcium (8.5-10.1) mg/dL Total Bilirubin (0.2-1.0) mg/dL AST (15-37) U/L ALT (12-78) U/L Alkaline Phosphatase (46-116) U/L C-Reactive Protein (0.0-0.3) mg/dL Total Protein (6.4-8.2) g/dL Albumin (3.4-5.0) g/dL Globulin (2.3-3.5) g/dL Albumin/Globulin Ratio (1.2-2.2) SARS CoV-2 RNA Rapid LUANN Meds: Medications Generic Name Dose Route Start Last Admin Trade Name Freq PRN Reason Stop Dose Admin Sodium Chloride 80 mls @ 3 mls/sec 07/27/20 20:45 07/27/20 20:38 Normal Saline IV 3 mls/sec ASDIRECTED SHAHBAZ Administration Iopamidol 100 ml 07/27/20 20:45 07/27/20 20:39 Iopamidol 612 Mg/Ml 100 Ml Bottle IV 100 ml . DIRECTED SHAHBAZ Administration Sodium Chloride 10 ml 07/27/20 20:05 07/27/20 20:31 Sodium Chloride 0.9% 10 Ml Syringe FLUSH 10 ml ASDIRECTED PRN Administration Keep Vein Open Discontinued Medications Generic Name Dose Route Start Last Admin Trade Name Freq PRN Reason Stop Dose Admin Hydromorphone HCl 1 mg 07/27/20 20:12 07/27/20 20:28 Hydromorphone 1 Mg/Ml Syringe IVPUSH 07/27/20 20:13 1 mg ONETIME ONE Administration Clindamycin Phosphate 900 mg/ 106 mls @ 200 mls/hr 07/27/20 20:08 07/27/20 20:28 Sodium Chloride IV 07/27/20 20:39 200 mls/hr ONETIME ONE Administration Ondansetron HCl 4 mg 07/27/20 20:12 07/27/20 20:23 Ondansetron 4 Mg/2 Ml Sdv IVPUSH 07/27/20 20:13 4 mg ONETIME ONE Administration - Radiology Interpretation Free Text/Narrative:: I reviewed the CT of the soft tissue neck showing a large right peritonsillar abscess measuring 2.4 x 1.8 cm causing shift of the uvula. There is some impingement into the retropharynx likely causing the muffled voice. The remainder of the airway appears to be patent. - Re-Assessments/Exams Free Text/Narrative Re-Assessment/Exam: 07/27/20 20:45 I am concerned based on the fact that the patient is a type II diabetic with a glucose of 388 and has a sizable right peritonsillar abscess despite having her "tonsils removed" in childhood. We initiated IV antibiotics with clindamycin 900 mg. The patient has been given Dilaudid 1 mg IV for pain. Currently she is able to manage her secretions and airway so there is no need for intubation, however, I do need to facilitate transfer of the patient to otorhinolaryngology for intervention. She will likely need hospitalization with IV antibiotics but we will leave that to them to assess. 07/27/20 21:06 I discussed the case with Dr. Jenkins, from otorhinolaryngology at [facility] who accepts the patient in transfer to the ED for evaluation and intervention. Will arrange for ground transportation of the patient. Currently she is stable. I reviewed her labs showing a leukocytosis of 13.3. Her CRP is elevated at 9.3. Covid is negative. Departure - Departure Time of Disposition: 21:08 Disposition: DC/Tfer to Acute Hospital 02 Clinical Impression: Peritonsillar abscess Difficulty swallowing Qualifiers: Dysphagia type: unspecified Qualified Code(s): R13.10 - Dysphagia, unspecified Diabetes mellitus Qualifiers: Diabetes mellitus type: type 2 Diabetes mellitus snf insulin use: with snf use - Discharge Information Referrals: PCP,None [Primary Care Provider] - Forms: ED Department Discharge Sepsis Event Note (ED) - Evaluation Sepsis Screening Result: No Definite Risk - Focused Exam Vital Signs: Vital Signs Temp Pulse Resp BP Pulse Ox 07/27/20 20:07 38.2 C H 118 H 24 H 139/94 H 96 - Problem List & Annotations (1) Diabetes mellitus SNOMED Code(s): 82376150 Code(s): E11.9 - TYPE 2 DIABETES MELLITUS WITHOUT COMPLICATIONS Status: Chronic Priority: Medium Current Visit: Yes Qualifiers: Diabetes mellitus type: type 2 Diabetes mellitus director long term care insulin use: with snf use (2) Difficulty swallowing SNOMED Code(s): 44787576, 671952705 Code(s): R13.10 - DYSPHAGIA, UNSPECIFIED Status: Acute Priority: High Current Visit: Yes Qualifiers: Dysphagia type: unspecified Qualified Code(s): R13.10 - Dysphagia, unspecified (3) Peritonsillar abscess SNOMED Code(s): 05776245 Code(s): J36 - PERITONSILLAR ABSCESS Status: Acute Priority: High Current Visit: Yes - Problem List Review Problem List Initiated/Reviewed/Updated: Yes - My Orders Last 24 Hours: My Active Orders 07/27/20 20:05 Sodium Chloride 0.9% [Saline Flush] 10 ml FLUSH ASDIRECTED PRN Saline Lock Insert [OM.PC] Routine 07/27/20 20:07 Isolation [COMM] Stat 07/27/20 20:09 Soft Tissue Neck w Cont [CT] Stat 07/27/20 20:45 Iopamidol [Isovue-300 (61%)] 100 ml IV . DIRECTED Sodium Chloride 0.9% [Normal Saline] 80 ml IV ASDIRECTED - Assessment/Plan Last 24 Hours: My Active Orders 07/27/20 20:05 Sodium Chloride 0.9% [Saline Flush] 10 ml FLUSH ASDIRECTED PRN Saline Lock Insert [OM.PC] Routine 07/27/20 20:07 Isolation [COMM] Stat 07/27/20 20:09 Soft Tissue Neck w Cont [CT] Stat 07/27/20 20:45 Iopamidol [Isovue-300 (61%)] 100 ml IV . DIRECTED Sodium Chloride 0.9% [Normal Saline] 80 ml IV ASDIRECTED
[2020-07-27] MEDS ORDERED: Sodium Chloride 0.9% 80 ML IV SCH (20:45)
[2020-07-27] MEDS ORDERED: Iopamidol 612 MG/ML 100 ML Bottle IV SCH (20:45)
--- NOTE | 2020-07-27 21:15 | CRLCT ---
INDICATION: Right neck and peritonsillar swelling. TECHNIQUE: IV contrast-enhanced CT soft tissue neck. 100 mL Isovue-300 injected. FINDINGS: There is a 2.3 x 1.3 x 0.8 cm right peritonsillar abscess image 29 series 3 and image 35 series 5. This causes some mass effect on the posterior oropharynx and nasopharyngeal airway. Remainder the airway is widely patent. Mild reactive adenopathy in the neck. The salivary glands are normal. Vocal folds and epiglottis are normal. Thyroid gland is normal. Visualized lung apices are clear. IMPRESSION: Right peritonsillar abscess. Please note that all CT scans at this facility use dose modulation, iterative reconstruction, and/or weight-based dosing when appropriate to reduce radiation dose to as low as reasonably achievable. Dictated by Jim Damon MD @ 07/27/2020 9:13:[address] Jim Damon @ Jul 27 2020 9:13PM
[2020-07-27 22:59] VITALS: BP 99/56; PULSE 103
== END 2020-07-27 23:05 ==
LOC: EEVIPCON 20:04 → JP.ED 20:04
DX: J36 Peritonsillar abscess (principal); E11.9 Type 2 diabetes mellitus without complications; E66.9 Obesity, unspecified; Z68.28 Body mass index [BMI] 28.0-28.9, adult; Z88.1 Allergy status to other antibiotic agents; Z88.0 Allergy status to penicillin; Z88.2 Allergy status to sulfonamides; Z79.4 Long term (current) use of insulin; Z79.899 Other long term (current) drug therapy; Z20.822 Contact with and (suspected) exposure to COVID-19
CPT/HCPCS: 36415; 70491; 80053; 83605; 85025; 86140; 87635; 96365; 96375; 99285; J1170; J2405; J3490; Q9967; U0002

== ENCOUNTER 2020-12-06 11:42 | Emergency (ER) | payer MEDICAID ==
[2020-12-06 12:03] VITALS: BP 143/88; PULSE 87
--- NOTE | 2020-12-06 12:24 | EDM.PDOC ---
ED HPI GENERAL MEDICAL PROBLEM - General Chief Complaint: Genitourinary Problem Stated Complaint: PAIN IN ABDOMEN Time Seen by Provider: 12/06/20 12:10 Source of Information: Reports: Patient History Limitations: Reports: No Limitations - History of Present Illness INITIAL COMMENTS - FREE TEXT/NARRATIVE: 40-year-old female arrives with 4 days of generalized complaints of sinus congestion and pressure, headache, fatigue, generalized muscle aches and intermittent abdominal discomfort. No nausea or vomiting, denies diarrhea. Appetite is down but she is eating okay. Unsure if she has been having fevers or chills, no urinary complaints. Onset: Gradual Duration: Day(s): (4 days of symptoms) Associated Symptoms: Reports: Cough (Mild cough), Headaches, Loss of Appetite, Malaise. Denies: Chest Pain, Fever/Chills, Nausea/Vomiting, Shortness of Breath - Related Data Allergies Allergy/AdvReac Type Severity Reaction Status Date / Time amoxicillin Allergy Rash Verified 12/06/20 12:10 erythromycin base Allergy Rash Verified 12/06/20 12:10 Penicillins Allergy Rash Verified 12/06/20 12:10 Sulfa (Sulfonamide Allergy Rash Verified 12/06/20 12:10 Antibiotics) Home Meds: Home Meds Gabapentin [Neurontin] 1 tab PO BID 07/05/20 [History] Insulin Glarg,Human.Rec.Analog [Lantus Solostar] 15 units SQ BEDTIME 07/05/20 [History] FLUoxetine HCl [Prozac] 20 mg PO DAILY 07/27/20 [History] Insulin Aspart [NovoLOG] 10 - 20 unit SUBCUT TIDMEALS 07/27/20 [History] Past Medical History HEENT History: Reports: Allergic Rhinitis, Other (See Below) Other HEENT History: cracked ear drum Cardiovascular History: Reports: None Respiratory History: Reports: None Gastrointestinal History: Reports: Cholelithiasis Genitourinary History: Reports: Pyelonephritis, Renal Calculus, UTI, Recurrent Other Genitourinary History: recent renal calculus dx THERAPIST PHYSICAL History: Reports: , 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 - Past Surgical History GI Surgical History: Reports: Cholecystectomy Musculoskeletal Surgical History: Reports: Arthroscopic Knee, Other (See Below), Other (See Below) Other Musculoskeletal Surgeries/Procedures:: right ankle surgery Dermatological Surgical History: Reports: Other (See Below) Social & Family History - Family History Family Medical History: No Pertinent Family History Endocrine/Metabolic: Reports: Diabetes, type II - Tobacco Use Tobacco Use Status *Q: Current Every Day Tobacco User Years of Tobacco use: 20 Packs/Tins Daily: 0.2 - Caffeine Use Caffeine Use: Reports: Coffee, Soda - Recreational Drug Use Recreational Drug Type: Reports: Marijuana/Hashish Recreational Drug Use Frequency: Daily ED ROS GENERAL - Review of Systems Review Of Systems: See Below Constitutional: Reports: Malaise, Decreased Appetite. Denies: Fever, Chills HEENT: Reports: Sinus Problem (Pressure in both sides over the maxillary and ethmoid sinuses) Respiratory: Reports: Cough. Denies: Shortness of Breath Cardiovascular: Denies: Chest Pain GI/Abdominal: Reports: Abdominal Pain. Denies: Diarrhea, Nausea, Vomiting Skin: Reports: No Symptoms Neurological: Reports: Dizziness, Headache. Denies: Paresthesia, Difficulty Walking, Weakness Psychiatric: Reports: No Symptoms ED EXAM, GENERAL - Physical Exam Exam: See Below Exam Limited By: No Limitations General Appearance: Alert, No Apparent Distress Eye Exam: Bilateral Eye: Normal Inspection Ears: Normal TMs Throat/Mouth: Normal Inspection Head: Sinus Tenderness (Tenderness to palpation over both maxillary sinuses, especially on the left) Respiratory/Chest: No Respiratory Distress, Wheezing (A few scattered expiratory wheezes are heard) Cardiovascular: Regular Rate, Rhythm. No: Tachycardia GI/Abdominal: Soft, Tender (Reacts with tenderness to palpation anywhere in the abdomen but no guarding or rebound, no focal area worse than any other) Extremities: Normal Inspection, Other (A few superficial abrasions on the knees). No: Pedal Edema Neurological: Alert, Oriented Psychiatric: Normal Affect, Normal Mood Course - Vital Signs Last Recorded V/S: Last Vital Signs Temp 98.0 F 12/06/20 12:16 Pulse 87 09/17/21 12:16 Resp 14 12/06/20 12:16 BP 143/88 H 12/06/20 12:16 Pulse Ox 99 12/06/20 12:16 - Orders/Labs/Meds Labs: Laboratory Tests 12/06/20 12/06/20 12/06/20 Range/Units 12:35 12:35 12:36 WBC 9.0 (4.5-11.0) K/uL RBC 4.84 (3.30-5.50) M/uL Hgb 13.6 (12.0-15.0) g/dL Hct 39.4 (36.0-48.0) % MCV 81 (80-98) fL MCH 28 (27-31) pg MCHC 35 (32-36) % Plt Count 329 (150-400) K/uL Neut % (Auto) 55.5 (36-66) % Lymph % (Auto) 24.6 (24-44) % [place] % (Auto) 10.4 H (2-6) % Eos % (Auto) 8.8 H (2-4) % Baso % (Auto) 0.7 (0-1) % Sodium 137 L (140-148) mmol/L Potassium 4.1 (3.6-5.2) mmol/L Chloride 100 (100-108) mmol/L Carbon Dioxide 26 (21-32) mmol/L Anion Gap 15.1 H (5.0-14.0) mmol/L BUN 11 (7-18) mg/dL Creatinine 0.8 (0.6-1.0) mg/dL Est Cr Clr Drug Dosing 91.81 mL/min Estimated GFR (MDRD) > 60 (>60) Glucose 255 H (74-106) mg/dL Calcium 8.4 L (8.5-10.1) mg/dL Total Bilirubin 0.2 D (0.2-1.0) mg/dL AST 25 (15-37) U/L ALT 34 (12-78) U/L Alkaline Phosphatase 100 (46-116) U/L Total Protein 6.7 (6.4-8.2) g/dL Albumin 3.0 L (3.4-5.0) g/dL Globulin 3.7 H (2.3-3.5) g/dL Albumin/Globulin Ratio 0.8 L (1.2-2.2) SARS-CoV-2 RNA (LUANN) Negative (NEGATIVE) - Re-Assessments/Exams Free Text/Narrative Re-Assessment/Exam: 12/06/20 13:52 CBC and CMP were obtained, white count hemoglobin are normal. Covid test was negative. Chemistry profile was reassuring other than a moderately elevated glucose. Patient will be treated with Zithromax for sinuses, but also counseled that this is likely viral and the Zithromax may help her from getting sicker but also may not treat her illness. She needs to rest, take ibuprofen, stay hydrated and recheck next week if not improving satisfactorily. Departure - Departure Time of Disposition: 13:48 Disposition: Home, Self-Care 01 Clinical Impression: Viral syndrome Sinusitis Qualifiers: Sinusitis location: unspecified location Chronicity: acute Recurrence: non- recurrent Qualified Code(s): J01.90 - Acute sinusitis, unspecified - Discharge Information Instructions: Sinusitis, Adult Referrals: Kimmy Umana [employer] SECRETARY [Primary Care Provider] - Forms: ED Department Discharge Care Plan Goals: Stay hydrated, rest, ibuprofen may be helpful and take antibiotic as prescribed. Consider rechecking next week if not improving satisfactorily. Sepsis Event Note (ED) - Evaluation Sepsis Screening Result: No Definite Risk - Focused Exam Vital Signs: Vital Signs Temp Pulse Resp BP Pulse Ox 12/06/20 12:16 98.0 F 87 14 143/88 H 99 12/06/20 12:01 98.0 F 87 14 143/88 H 99
== END 2020-12-06 13:48 | disposition home or self-care (01) ==
LOC: JP.ED 11:42
DX: B34.9 Viral infection, unspecified (principal); J01.90 Acute sinusitis, unspecified; E66.9 Obesity, unspecified; Z68.30 Body mass index [BMI] 30.0-30.9, adult; Z72.0 Tobacco use; Z88.0 Allergy status to penicillin; Z88.1 Allergy status to other antibiotic agents; Z88.2 Allergy status to sulfonamides; Z20.822 Contact with and (suspected) exposure to COVID-19
CPT/HCPCS: 36415; 80053; 85025; 99283; U0002

== ENCOUNTER 2021-02-19 09:24 | Emergency (ER) | payer MEDICAID ==
[2021-02-19 11:35] VITALS: BP 122/86; PULSE 95
[2021-02-19] MEDS ORDERED: Lidocaine 1% with EPINEPHrine 1:100,000 50 ML MDV SUBCUT STA (12:50)
--- NOTE | 2021-02-19 12:53 | EDM.PDOC ---
ED HPI GENERAL MEDICAL PROBLEM - General Chief Complaint: General Stated Complaint: ABCESS Time Seen by Provider: 02/19/21 12:46 Source of Information: Reports: Patient, RN Notes Reviewed History Limitations: Reports: No Limitations - History of Present Illness INITIAL COMMENTS - FREE TEXT/NARRATIVE: lump on the back of her head , has been present for 2 days Left Posterior Head Pain Score (Numeric/FACES): 8 - Related Data Allergies Allergy/AdvReac Type Severity Reaction Status Date / Time amoxicillin Allergy Rash Verified 02/19/21 12:18 erythromycin base Allergy Rash Verified 02/19/21 12:18 Penicillins Allergy Rash Verified 02/19/21 12:18 Sulfa (Sulfonamide Allergy Rash Verified 02/19/21 12:18 Antibiotics) Home Meds: Home Meds Gabapentin [Neurontin] 1 tab PO BID 07/05/20 [History] Insulin Glarg,Human.Rec.Analog [Lantus Solostar] 15 units SQ BEDTIME 07/05/20 [History] FLUoxetine HCl [Prozac] 20 mg PO DAILY 07/27/20 [History] Insulin Aspart [NovoLOG] 10 - 20 unit SUBCUT TIDMEALS 07/27/20 [History] Past Medical History HEENT History: Reports: Allergic Rhinitis, Other (See Below) Other HEENT History: cracked ear drum Gastrointestinal History: Reports: Cholelithiasis Genitourinary History: Reports: Pyelonephritis, Renal Calculus, UTI, Recurrent Other Genitourinary History: recent renal calculus dx 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 - Past Surgical History GI Surgical History: Reports: Cholecystectomy Musculoskeletal Surgical History: Reports: Arthroscopic Knee, Other (See Below), Other (See Below) Other Musculoskeletal Surgeries/Procedures:: right ankle surgery Dermatological Surgical History: Reports: Other (See Below) Social & Family History - Family History Family Medical History: No Pertinent Family History Endocrine/Metabolic: Reports: Diabetes, type II - Tobacco Use Tobacco Use Status *Q: Heavy Tobacco User Years of Tobacco use: 20 Packs/Tins Daily: 0.2 - Caffeine Use Caffeine Use: Reports: Coffee, Soda - Recreational Drug Use Recreational Drug Use: Yes Recreational Drug Type: Reports: Marijuana/Hashish Recreational Drug Use Frequency: Daily ED ROS GENERAL - Review of Systems Review Of Systems: See Below Constitutional: Reports: No Symptoms HEENT: Reports: No Symptoms Respiratory: Reports: No Symptoms Cardiovascular: Reports: No Symptoms GI/Abdominal: Reports: No Symptoms Skin: Reports: Lesions ED EXAM, GENERAL - Physical Exam Exam: See Below Free Text/Narrative:: scalp, a leasion about the size of a 25 cent , firm, tender no drainage no warmth Exam Limited By: No Limitations General Appearance: Alert, WD/WN, No Apparent Distress ED I&D PROCEDURES - I&D Site: scalp Skin prep: Saline Local anesthesia - Lidocaine (Xylocaine): 1% with EPI Local Anesthetic Volume: 2cc Area Incised With: 11 Blade Drainage: Purulent, Bloody, Small Amount Probed to Break Up Loculations: Yes Packed With: None Complications: No Course - Vital Signs Last Recorded V/S: Last Vital Signs Temp 97.5 F 02/19/21 12:16 Pulse 95 02/19/21 12:16 Resp 16 02/19/21 12:16 BP 122/86 02/19/21 12:16 Pulse Ox 95 02/19/21 12:16 - Orders/Labs/Meds Meds: Medications Discontinued Medications Generic Name Dose Route Start Last Admin Trade Name Bailey PRN Reason Stop Dose Admin Lidocaine/Epinephrine 20 ml 02/19/21 12:50 02/19/21 12:57 Lidocaine 1% With Epinephrine 1:100,000 50 Ml Mdv SUBCUT 02/19/21 12:51 20 ml NOW STA Administration Departure - Departure Time of Disposition: 13:36 Disposition: Home, Self-Care 01 Condition: Fair Clinical Impression: Scalp abscess - Discharge Information Instructions: Skin Abscess, [id number] Referrals: PCP,None [Primary Care Provider] - Forms: ED Department Discharge Additional Instructions: Take full course of antibiotics, please followup with your primary care provider in 3-5 days if not better, please call return to the emergency department with worsening of symptoms. Sepsis Event Note (ED) - Evaluation Sepsis Screening Result: No Definite Risk - Focused Exam Vital Signs: Vital Signs Temp Pulse Resp BP Pulse Ox 02/19/21 12:16 97.5 F 95 16 122/86 95 02/19/21 11:33 97.5 F 95 16 122/86 95 - Assessment/Plan Plan: Assessment Acuity = acute Site and laterality = scalp abscess Etiology = probable bacterial cause Manifestations = none Location of injury = Home Lab values = wound culture pending Plan Placed on Bactrim DS 1 tab p.o. twice daily x10 days This note was dictated using [employer] voice recognition software please call with any questions on syntax or grammar.
== END 2021-02-19 13:50 | disposition home or self-care (01) ==
LOC: JP.ED 09:24
DX: L02.811 Cutaneous abscess of head [any part, except face] (principal); E66.9 Obesity, unspecified; Z68.31 Body mass index [BMI] 31.0-31.9, adult; Z72.0 Tobacco use; Z88.0 Allergy status to penicillin; Z88.1 Allergy status to other antibiotic agents; Z88.2 Allergy status to sulfonamides; Z79.899 Other long term (current) drug therapy
CPT/HCPCS: 10060; 87070; 87077; 87186; 87205; 99283-25

== ENCOUNTER 2021-11-29 11:17 | Emergency (ER) | payer MEDICAID ==
[2021-11-29 12:18] VITALS: BP 119/83; PULSE 96
[2021-11-29] MEDS ORDERED: Ketorolac 30 MG/ML SDV IM ONE (13:18)
[2021-11-29] MEDS ORDERED: Acetaminophen/HYDROcodone 325-5 MG Tab PO ONE (13:18)
[2021-11-29 13:52] LABS: ESTIMATED GFR 95 mL/min (>60)
[2021-11-29] MEDS ORDERED: Clindamycin HCl 150 MG Cap PO ONE (14:26)
== END 2021-11-29 15:10 | disposition home or self-care (01) ==
LOC: JP.ED 11:17
DX: L03.211 Cellulitis of face (principal); E11.9 Type 2 diabetes mellitus without complications; E66.9 Obesity, unspecified; Z68.30 Body mass index [BMI] 30.0-30.9, adult; Z88.0 Allergy status to penicillin; Z88.1 Allergy status to other antibiotic agents; Z88.2 Allergy status to sulfonamides; Z79.899 Other long term (current) drug therapy; Z79.4 Long term (current) use of insulin; Z79.84 Long term (current) use of oral hypoglycemic drugs; Z90.49 Acquired absence of other specified parts of digestive tract
CPT/HCPCS: 36415; 80053; 85025; 85651; 86140; 87070; 87077; 87186; 87205; 96372; 99283; A9270; J1885

== ENCOUNTER 2022-02-18 12:55 | Emergency (ER) | payer MEDICAID ==
[2022-02-18] MEDS ORDERED: Ondansetron 4 MG/2 ML SDV IVPUSH ONE ×2 (13:00→17:18)
[2022-02-18] MEDS: Sodium Chloride 0.9% 1,000 ML IV SCH ×2 (13:33→14:38)
[2022-02-18 13:46] LABS: ESTIMATED GFR 83 mL/min (>60)
[2022-02-18] MEDS ORDERED: HYDROmorphone 0.5 MG/0.5 ML Syringe IVPUSH ONE ×2 (13:49→17:18)
[2022-02-18] MEDS ORDERED: Sodium Chloride 0.9% 1,000 ML IV SCH ×2 (14:00→16:00)
[2022-02-18] MEDS ORDERED: Pantoprazole 40 MG Vial IVPUSH SCH (14:00)
[2022-02-18] MEDS ORDERED: Glucagon,Human Recombinant 1 MG Vial IM PRN (14:01)
[2022-02-18] MEDS ORDERED: 50% Dextrose in Water 50 ML Syringe IVPUSH PRN (14:01)
[2022-02-18] MEDS ORDERED: Insulin Regular, Human 100 Units/ML 3 ML Vial SUBCUT ONE (14:01)
[2022-02-18] MEDS ORDERED: cefTRIAXone 2 GM in Sodium Chloride 0.9% 50 ML IV ONE (14:06)
[2022-02-18 14:18] LABS: CORONAVIRUS COVID-19 NAA NEGATIVE (NEGATIVE)
[2022-02-18] MEDS ORDERED: Sodium Chloride 0.9% 50 ML IV ONE (14:40)
[2022-02-18] MEDS ORDERED: Sodium Chloride 0.9% 10 ML Syringe FLUSH PRN (14:40)
[2022-02-18] MEDS ORDERED: Iopamidol 612 MG/ML 100 ML Bottle IV PRN (14:40)
[2022-02-18] MEDS ORDERED: Prochlorperazine 10 MG/2 ML SDV IVPUSH ONE (18:23)
[2022-02-18 18:30] VITALS: PULSE 111
[2022-02-18 19:59] VITALS: BP 129/73
== END 2022-02-18 20:39 ==
LOC: JP.ED 12:55
DX: A41.9 Sepsis, unspecified organism (principal); E86.0 Dehydration; K92.0 Hematemesis; N13.4 Hydroureter; N20.1 Calculus of ureter; M19.90 Unspecified osteoarthritis, unspecified site; E11.9 Type 2 diabetes mellitus without complications; E66.9 Obesity, unspecified; Z68.31 Body mass index [BMI] 31.0-31.9, adult; Z72.0 Tobacco use; Z88.0 Allergy status to penicillin; Z88.1 Allergy status to other antibiotic agents; Z88.2 Allergy status to sulfonamides; Z79.899 Other long term (current) drug therapy; Z20.822 Contact with and (suspected) exposure to COVID-19
CPT/HCPCS: 0241U; 36415; 71045; 74177; 80053; 80305; 80307; 81001; 81025; 82800; 82947; 83605; 85025; 87040; 87086; 87088; 87186; 96361; 96365; 96375; 96376; 99285; C9113; J0696; J0780; J1170; J1815; J2405; J3490; J7030; Q9967

== ENCOUNTER 2023-02-16 22:20 | Emergency (ER) | payer MEDICAID ==
[2023-02-16 22:58] LABS: BASOPHILS ABSOLUTE AUTO 0.04 K/uL (0.00-0.10); BASOPHILS PERCENT AUTO 0.3 % (0.1-1.3); EOSINOPHILS ABSOLUTE AUTO 0.03 K/uL (0.00-0.40); EOSINOPHILS PERCENT AUTO 0.2 % (0.0-5.4); HEMATOCRIT 35.2 % (34.3-46.0); HEMOGLOBIN 11.3 g/dL (11.2-15.5); IMMATURE GRAN ABSOLUTE AUTO 0.03 K/uL (0.00-0.23); IMMATURE GRAN PERCENT AUTO 0.2 % (0.0-0.7); LYMPHOCYTES ABSOLUTE AUTO 0.69 K/uL (0.8-3.3); LYMPHOCYTES PERCENT AUTO 5.6 % (11.4-47.7); MEAN CORPUSCULAR HEMOGLOBIN 26.4 pg (31.6-35.5); MEAN CORPUSCULAR HGB CONC 32.1 g/dL (31.6-35.5); MEAN CORPUSCULAR VOLUME 82.2 fL (81.4-99.0); MONOCYTES ABSOLUTE AUTO 0.81 K/uL (0.20-0.90); MONOCYTES PERCENT AUTO 6.5 % (3.3-12.6); NEUTROPHILS PERCENT AUTO 87.2 % (40.0-78.1); PLATELET COUNT,PLT 321 K/uL (130-375); RED BLOOD CELL COUNT 4.28 M/uL (3.77-5.24); WHITE BLOOD CELL COUNT,WBC 12.4 K/uL (3.2-11.0)
[2023-02-16 23:03] LABS: APPEARANCE,URINE SLIGHTLY CLOUDY (CLEAR); BILIRUBIN,URINE NEGATIVE (NEGATIVE); COLOR,URINE YELLOW (YELLOW); GLUCOSE,URINE 500 mg/dL (NEGATIVE); KETONES,URINE 40 mg/dL (NEGATIVE); LEUKOCYTE ESTERASE,URINE NEGATIVE (NEGATIVE); NITRITE,URINE NEGATIVE (NEGATIVE); OCCULT BLOOD,URINE LARGE (NEGATIVE); PROTEIN,URINE NEGATIVE (NEGATIVE); UROBILINOGEN,URINE 0.2 EU/dL (0.2-1.0)
[2023-02-16] MEDS: Sodium Chloride 0.9% 1,000 ML IV ONE (23:05)
[2023-02-16 23:10] LABS: AMORPHOUS SEDIMENT,URINE NOT SEEN; BACTERIA,URINE FEW; EPITHELIAL CELLS,URINE FEW; MUCUS,URINE NOT SEEN; RBC,URINE 75-100 (0-5)
[2023-02-16 23:11] LABS: AMPHETAMINES SCREEN, URINE NEGATIVE (NEGATIVE); BARBITURATE SCREEN,URINE NEGATIVE (NEGATIVE); BENZODIAZEPINES SCREEN,URINE NEGATIVE (NEGATIVE); METHADONE SCREEN, URINE NEGATIVE (NEGATIVE); METHAMPHETAMINES SCREEN, URINE NEGATIVE (NEGATIVE); OXYCODONE SCREEN,URINE PRESUMPTIVE POSITIVE (NEGATIVE); PROPOXYPHENE SCREEN,URINE NEGATIVE (NEGATIVE); THC SCREEN,URINE 50 NG/ML PRESUMPTIVE POSITIVE (NEGATIVE)
[2023-02-16 23:14] LABS: CALCIUM 7.7 mg/dL (8.5-10.1); CREATININE 0.8 mg/dL (0.6-1.0); EST CRCL DRUG DOSING (CG) 89.99 mL/min; POTASSIUM,K 3.8 mmol/L (3.6-5.2)
[2023-02-16 23:15] LABS: ANION GAP 14.8 mmol/L (5.0-14.0)
[2023-02-17] MEDS: Calcium Carbonate 500 MG Tab.Chew PO ONE (01:04)
[2023-02-17] MEDS ORDERED: 50% Dextrose in Water 50 ML Syringe IVPUSH PRN (01:21)
[2023-02-17] MEDS ORDERED: Glucagon,Human Recombinant 1 MG Vial IM PRN (01:21)
[2023-02-17] MEDS: Insulin Glargine,Human Rec. Analog 100 Units/ML 3 ML Pen SUBCUT STA (01:40)
[2023-02-17] MEDS: Lactated Ringers 1,000 ML IV SCH (02:30)
[2023-02-17 05:07] VITALS: BP 107/75; PULSE 108
[2023-02-17] MEDS ORDERED: Insulin Glargine,Human Rec. Analog 100 Units/ML 3 ML Pen SUBCUT SCH (21:00)
== END 2023-02-17 08:32 | disposition home or self-care (01) ==
LOC: JP.ED 22:20
DX: T40.2X2A Poisoning by other opioids, intentional self-harm, initial encounter (principal); F17.210 Nicotine dependence, cigarettes, uncomplicated; E11.9 Type 2 diabetes mellitus without complications; E66.9 Obesity, unspecified; Z68.32 Body mass index [BMI] 32.0-32.9, adult; Z88.0 Allergy status to penicillin; Z88.2 Allergy status to sulfonamides; Z88.1 Allergy status to other antibiotic agents; Z79.84 Long term (current) use of oral hypoglycemic drugs; Z79.4 Long term (current) use of insulin
CPT/HCPCS: 36415; 71045; 80048; 80143; 80305; 80307; 81001; 83605; 85025; 86140; 96360; 96361; 99284; A9270; J1815; J7030; J7120

== ENCOUNTER 2023-02-19 12:48 | Emergency (ER) | payer MEDICAID ==
[2023-02-19] MEDS ORDERED: Sodium Chloride 0.9% 10 ML Syringe FLUSH PRN ×2 (13:37→15:46)
[2023-02-19] MEDS ORDERED: Metoclopramide 10 MG/2 ML SDV IM ONE (13:56)
[2023-02-19] MEDS ORDERED: Sodium Chloride 0.9% 1,000 ML IV ONE (14:06)
[2023-02-19] MEDS ORDERED: Metoclopramide 10 MG/2 ML SDV IVPUSH ONE (14:07)
[2023-02-19 14:23] LABS: APPEARANCE,URINE CLEAR (CLEAR); BILIRUBIN,URINE SMALL (NEGATIVE); COLOR,URINE YELLOW (YELLOW); GLUCOSE,URINE 500 mg/dL (NEGATIVE); KETONES,URINE 80 mg/dL (NEGATIVE); LEUKOCYTE ESTERASE,URINE NEGATIVE (NEGATIVE); NITRITE,URINE NEGATIVE (NEGATIVE); OCCULT BLOOD,URINE TRACE-INTACT (NEGATIVE); PH,URINE 7.5 (5.0-8.0); PROTEIN,URINE 30 mg/dL (NEGATIVE); UROBILINOGEN,URINE 0.2 EU/dL (0.2-1.0)
[2023-02-19 14:31] LABS: A/G RATIO 0.8 (1.2-2.2); ALANINE AMINOTRANSFERASE,ALT 9 U/L (12-78); ALBUMIN 3.8 g/dL (3.4-5.0); ALKALINE PHOSPHATASE 99 U/L (46-116); ASPARTATE AMNIOTRANSFERASE,AST 14 U/L (15-37); BASOPHILS ABSOLUTE AUTO 0.03 K/uL (0.00-0.10); BASOPHILS PERCENT AUTO 0.3 % (0.1-1.3); BILIRUBIN TOTAL 0.5 mg/dL (0.2-1.0); BLOOD UREA NITROGEN,BUN 8 mg/dL (7-18); CALCIUM 9.3 mg/dL (8.5-10.1); CARBON DIOXIDE,CO2 23 mmol/L (21-32); CHLORIDE,CL 102 mmol/L (100-108); CREATININE 0.9 mg/dL (0.6-1.0); EOSINOPHILS PERCENT AUTO 0.1 % (0.0-5.4); EST CRCL DRUG DOSING (CG) 79.99 mL/min; ESTIMATED GFR 82 mL/min (>60); GLUCOSE RANDOM 289 mg/dL (74-106); HEMATOCRIT 37.6 % (34.3-46.0); HEMOGLOBIN 12.4 g/dL (11.2-15.5); IMMATURE GRAN ABSOLUTE AUTO 0.03 K/uL (0.00-0.23); IMMATURE GRAN PERCENT AUTO 0.3 % (0.0-0.7); LYMPHOCYTES ABSOLUTE AUTO 2.36 K/uL (0.8-3.3); LYMPHOCYTES PERCENT AUTO 22.5 % (11.4-47.7); MEAN CORPUSCULAR HEMOGLOBIN 26.2 pg (31.6-35.5); MEAN CORPUSCULAR VOLUME 79.3 fL (81.4-99.0); MONOCYTES ABSOLUTE AUTO 0.75 K/uL (0.20-0.90); MONOCYTES PERCENT AUTO 7.2 % (3.3-12.6); NEUTROPHILS ABSOLUTE AUTO 7.29 K/uL (1.0-7.6); NEUTROPHILS PERCENT AUTO 69.6 % (40.0-78.1); PLATELET COUNT,PLT 378 K/uL (130-375); PROTEIN TOTAL,TP 8.4 g/dL (6.4-8.2); RED BLOOD CELL COUNT 4.74 M/uL (3.77-5.24); SODIUM,NA 141 mmol/L (140-148); WHITE BLOOD CELL COUNT,WBC 10.5 K/uL (3.2-11.0)
[2023-02-19 14:33] LABS: EOSINOPHILS ABSOLUTE AUTO 0.01 K/uL (0.00-0.40)
[2023-02-19 14:39] LABS: AMPHETAMINES SCREEN, URINE NEGATIVE (NEGATIVE); BARBITURATE SCREEN,URINE NEGATIVE (NEGATIVE); BENZODIAZEPINES SCREEN,URINE NEGATIVE (NEGATIVE); METHADONE SCREEN, URINE NEGATIVE (NEGATIVE); METHAMPHETAMINES SCREEN, URINE NEGATIVE (NEGATIVE); OXYCODONE SCREEN,URINE NEGATIVE (NEGATIVE); PROPOXYPHENE SCREEN,URINE NEGATIVE (NEGATIVE); THC SCREEN,URINE 50 NG/ML PRESUMPTIVE POSITIVE (NEGATIVE)
[2023-02-19 14:39] LABS: BACTERIA,URINE FEW; EPITHELIAL CELLS,URINE MODERATE; WBC,URINE 0-5 (0-5)
[2023-02-19 14:40] LABS: AMORPHOUS SEDIMENT,URINE NOT SEEN; MUCUS,URINE NOT SEEN
[2023-02-19 14:48] LABS: INR 1.1; PROTHROMBIN TIME 11.1 sec (9.2-10.6)
[2023-02-19 15:10] LABS: CORONAVIRUS COVID-19 NAA NEGATIVE (NEGATIVE); INFLUENZA A NAA NEGATIVE (NEGATIVE); INFLUENZA B NAA NEGATIVE (NEGATIVE); RESPIRATORY SYNCYTIAL VIR NAA NEGATIVE (NEGATIVE)
[2023-02-19 15:25] LABS: ANION GAP 20.2 mmol/L (5.0-14.0); CALCIUM 8.2 mg/dL (8.5-10.1); CREATININE 0.7 mg/dL (0.6-1.0); EST CRCL DRUG DOSING (CG) 102.85 mL/min; POTASSIUM,K 3.2 mmol/L (3.6-5.2)
[2023-02-19] MEDS ORDERED: droPERidol 5 MG/2 ML SDV IVPUSH ONE (15:29)
[2023-02-19] MEDS ORDERED: Iopamidol 612 MG/ML 100 ML Bottle IV SCH ×2 (16:00)
[2023-02-19] MEDS ORDERED: Sodium Chloride 0.9% 50 ML IV SCH (16:00)
[2023-02-19 16:29] VITALS: BP 172/93; PULSE 100
== END 2023-02-19 17:29 | disposition home or self-care (01) ==
LOC: JP.ED 12:48
DX: R11.10 Vomiting, unspecified (principal); F12.90 Cannabis use, unspecified, uncomplicated; E11.9 Type 2 diabetes mellitus without complications; F17.210 Nicotine dependence, cigarettes, uncomplicated; E66.9 Obesity, unspecified; Z88.0 Allergy status to penicillin; Z88.2 Allergy status to sulfonamides; Z88.1 Allergy status to other antibiotic agents; Z88.8 Allergy status to other drugs, medicaments and biological substances; Z79.4 Long term (current) use of insulin; Z79.899 Other long term (current) drug therapy; Z90.49 Acquired absence of other specified parts of digestive tract; Z20.822 Contact with and (suspected) exposure to COVID-19; Z68.28 Body mass index [BMI] 28.0-28.9, adult
CPT/HCPCS: 0241U; 36415; 74177; 80048; 80053; 80305; 80307; 81001; 82800; 83605; 85025; 85610; 96361; 96374; 96375; 99285; J1790; J2765; J3490; J7030; Q9967

== ENCOUNTER 2024-04-20 20:33 | Emergency (ER) | payer MEDICAID ==
[2024-04-20 21:51] VITALS: BP 130/74; PULSE 100
[2024-04-20 22:37] LABS: BASOPHILS ABSOLUTE AUTO 0.06 K/uL (0.00-0.10); BASOPHILS PERCENT AUTO 0.5 % (0.1-1.3); EOSINOPHILS ABSOLUTE AUTO 0.42 K/uL (0.00-0.40); EOSINOPHILS PERCENT AUTO 3.7 % (0.0-5.4); HEMATOCRIT 37.8 % (34.3-46.0); IMMATURE GRAN ABSOLUTE AUTO 0.03 K/uL (0.00-0.23); IMMATURE GRAN PERCENT AUTO 0.3 % (0.0-0.7); LYMPHOCYTES ABSOLUTE AUTO 3.59 K/uL (0.8-3.3); LYMPHOCYTES PERCENT AUTO 31.8 % (11.4-47.7); MEAN CORPUSCULAR HEMOGLOBIN 28.8 pg (31.6-35.5); MEAN CORPUSCULAR HGB CONC 34.4 g/dL (31.6-35.5); MEAN CORPUSCULAR VOLUME 83.6 fL (81.4-99.0); MONOCYTES ABSOLUTE AUTO 0.68 K/uL (0.20-0.90); NEUTROPHILS PERCENT AUTO 57.7 % (40.0-78.1); PLATELET COUNT,PLT 340 K/uL (130-375); RED BLOOD CELL COUNT 4.52 M/uL (3.77-5.24); WHITE BLOOD CELL COUNT,WBC 11.3 K/uL (3.2-11.0)
[2024-04-20 22:41] LABS: APPEARANCE,URINE SLIGHTLY CLOUDY (CLEAR); BILIRUBIN,URINE NEGATIVE (NEGATIVE); COLOR,URINE YELLOW (YELLOW); GLUCOSE,URINE NEGATIVE (NEGATIVE); KETONES,URINE TRACE mg/dL (NEGATIVE); LEUKOCYTE ESTERASE,URINE TRACE (NEGATIVE); NITRITE,URINE NEGATIVE (NEGATIVE); OCCULT BLOOD,URINE NEGATIVE (NEGATIVE); PROTEIN,URINE 30 mg/dL (NEGATIVE); UROBILINOGEN,URINE 0.2 EU/dL (0.2-1.0)
[2024-04-20 22:53] LABS: AMORPHOUS SEDIMENT,URINE NOT SEEN; BACTERIA,URINE MODERATE; EPITHELIAL CELLS,URINE MODERATE; MUCUS,URINE MODERATE; RBC,URINE 0-5 (0-5)
[2024-04-20 22:58] LABS: ALANINE AMINOTRANSFERASE,ALT 29 U/L (12-78); ALBUMIN 3.7 g/dL (3.4-5.0); ALKALINE PHOSPHATASE 76 U/L (46-116); ANION GAP 11.1 mmol/L (5.0-14.0); ASPARTATE AMNIOTRANSFERASE,AST 18 U/L (15-37); BILIRUBIN TOTAL 0.2 mg/dL (0.2-1.0); BLOOD UREA NITROGEN,BUN 15 mg/dL (7-18); CALCIUM 8.7 mg/dL (8.5-10.1); CARBON DIOXIDE,CO2 25 mmol/L (21-32); CHLORIDE,CL 106 mmol/L (100-108); CREATININE 0.9 mg/dL (0.6-1.0); EST CRCL DRUG DOSING (CG) 76.23 mL/min; ESTIMATED GFR 82 mL/min (>60); GLUCOSE RANDOM 128 mg/dL (74-106); POTASSIUM,K 3.6 mmol/L (3.6-5.2); PROTEIN TOTAL,TP 7.6 g/dL (6.4-8.2); SODIUM,NA 142 mmol/L (140-148)
== END 2024-04-20 23:15 | disposition home or self-care (01) ==
LOC: JP.ED 20:33
DX: N39.0 Urinary tract infection, site not specified (principal); E78.00 Pure hypercholesterolemia, unspecified; K21.9 Gastro-esophageal reflux disease without esophagitis; E11.9 Type 2 diabetes mellitus without complications; F17.210 Nicotine dependence, cigarettes, uncomplicated; E66.9 Obesity, unspecified; Z68.31 Body mass index [BMI] 31.0-31.9, adult; Z90.49 Acquired absence of other specified parts of digestive tract; Z88.0 Allergy status to penicillin; Z88.1 Allergy status to other antibiotic agents; Z88.2 Allergy status to sulfonamides; Z88.8 Allergy status to other drugs, medicaments and biological substances; Z79.4 Long term (current) use of insulin; Z79.899 Other long term (current) drug therapy
CPT/HCPCS: 36415; 80053; 81001; 83605; 85025; 87086; 99284